=== PATIENT | male | born 1955 | race Caucasian/White ===

== ENCOUNTER 2018-07-12 13:31 | Outpatient (REF) | payer BC, SELFPAY ==
[2018-07-12 23:46] LABS: ALT 41 U/L (12-78); AST 29 U/L (15-37); Albumin 3.7 g/dL (3.4-5.0); Alkaline Phosphatase 100 U/L (46-116); Anion Gap 11.4 mmol/L (3-11); BUN 19 mg/dL (7-18); Bilirubin, Total 0.5 mg/dL (0.2-1.0); CO2 25.6 mmol/L (21.0-32.0); CREATININE 0.76 mg/dL (0.70-1.30); Calcium 8.7 mg/dL (8.5-10.1); Chloride 102 mmol/L (98-107); Creatine Kinase 222 U/L (39-308); Glucose 97 mg/dL (70-100); Potassium 4.7 mmol/L (3.5-5.1); Sodium 139 mmol/L (136-145); Total Protein 7.1 g/dL (6.4-8.2)
== END 2018-07-12 13:51 ==
LOC: NCHCN 13:31
PROVIDERS: PCP Physician Assistant Medical; Visit Provider Physician Assistant Medical
DX: M79.1 Myalgia (principal)
CPT/HCPCS: 80053; 82550; 83735

== ENCOUNTER 2018-09-06 00:55 | Outpatient (CLI) | payer BC, SELFPAY ==
--- NOTE | 2018-09-06 07:28 | DI.US_ITS ---
SYMPTOM/DIAGNOSIS: ABDOMINAL AORTIC ANEURYSM I71.4, f/u from 07/2017. ABDOMINAL ULTRASOUND: LIMITED 09/06 Limited abdominal ultrasound was performed to evaluate previously noted abdominal aortic aneurysm. On today's examination the infrarenal abdominal aortic aneurysm measures about 3.8 cm in greatest diameter, unchanged in size in comparison with examination of 08/18/17. Right common iliac artery measures 26 mm in greatest diameter. Left common iliac artery measures 17 mm in greatest diameter. CONCLUSION: 3.8 cm abdominal aortic aneurysm, infrarenal, stable from July 2017. 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
== END 2018-09-06 01:15 ==
PROVIDERS: PCP Physician Assistant Medical; Visit Provider Physician Assistant Medical
DX: I71.4 Abdominal aortic aneurysm, without rupture (principal)
CPT/HCPCS: 76775

== ENCOUNTER 2019-01-17 08:48 | Outpatient (CLI) | payer MEDICARE, OTHER, SELFPAY | END 2019-01-17 09:08 | PROVIDERS: PCP Physician Assistant Medical; Visit Provider Internal Medicine Interventional Cardiology | DX: I47.2 Ventricular tachycardia (principal); I25.10 Atherosclerotic heart disease of native coronary artery without angina pectoris; I10 Essential (primary) hypertension; J44.9 Chronic obstructive pulmonary disease, unspecified; F17.210 Nicotine dependence, cigarettes, uncomplicated; Z79.01 Long term (current) use of anticoagulants; G47.30 Sleep apnea, unspecified; L90.5 Scar conditions and fibrosis of skin; E78.5 Hyperlipidemia, unspecified | CPT/HCPCS: 99214; 93005; 93010; 99213 ==

== ENCOUNTER → 2019-03-22 01:10 | Outpatient (CLI) | payer MEDICARE, OTHER, SELFPAY ==
--- NOTE | 2019-03-22 09:11 | DI.RAD_ITS ---
SYMPTOM/DIAGNOSIS: LOW BACK PAIJN, M54.5 LUMBOSACRAL SPINE: Six views were obtained. Note is made of an apparent vertebroplasty at the L 1 level with some apparent expulsion of vertebroplasty material into the disc space at the L 1-2 level. Otherwise the vertebral bodies appear fairly well maintained. There is marked loss of the disc space at L 5-S 1 with prominent hypertrophic endplate changes at this level. Mild hypertrophic facet changes noted at multiple levels. Abdominal aortic aneurysm noted with maximal diameter by plain film measurement of 5 cm. and there is a probable common iliac artery aneurysm measuring about 3.6 cm. on the left. CONCLUSION: Marked DJD at L 5-S 1. Old L 1 compression fracture with vertebroplasty. Incidental 5 cm. abdominal aortic aneurysm by plain film criteria. Ultrasound of 09/06/18 showed this to be 3.8 cm. in diameter and follow up ultrasound is recommended in 6 months for surveillance.
== END ==
PROVIDERS: PCP Physician Assistant Medical; Visit Provider Physician Assistant Medical
DX: M54.5 Low back pain (principal); M47.817 Spondylosis without myelopathy or radiculopathy, lumbosacral region; M48.56XD Collapsed vertebra, not elsewhere classified, lumbar region, subsequent encounter for fracture with routine healing; Z98.890 Other specified postprocedural states; I71.4 Abdominal aortic aneurysm, without rupture
CPT/HCPCS: 72110

== ENCOUNTER 2019-03-28 01:37 | Outpatient (CLI) | payer MEDICARE, OTHER, SELFPAY ==
[2019-03-28 10:08] LABS: BUN 17 mg/dL (7-18); NT-proBNP 57 pg/mL
[2019-03-28 10:09] LABS: HCT 47.1 % (40.0-50.0); HGB 16.1 g/dL (13.5-17.5); Mean Corp. HGB Concentration 34.2 g/dL (32.0-36.0); Mean Corpuscular Hemoglobin 32.5 pg (27.0-33.0); Mean Platelet Volume 10.4 fL (8.0-11.0); Platelet Count 271 x1000/uL (130-400); RBC 4.96 m/cumm (4.50-6.00); RBC Distribution Width 14.2 % (11.8-14.1); White Blood Cell Count 8.59 k/cumm (4.4-10.8)
[2019-03-28] MEDS: Normal Saline Flush 10 ML SYR IVP (10:16)
[2019-03-28] MEDS: Gadoterate meglumine 20 ML VIAL 16 ML IVP (10:18)
--- NOTE | 2019-03-28 10:41 | DI.MRI_ITS ---
SYMPTOMS/DIAGNOSIS: LOW BACK PAIN, M54.5 MRI OF THE LUMBAR SPINE: Pre and post contrast examination was performed. Comparison is 10/23/16. There is an old compression deformity of the L1 vertebral body with focal kyphosis at this level. There is mild retropulsion. Overall, the findings of the L1 vertebral body are stable. At L5-S1, there is disc desiccation. There are endplate osteophytes, which extend posteriorly into the central spinal canal. There is no significant central spinal canal stenosis. There is moderate bilateral neural foraminal stenosis. At L4-L5, there is disc desiccation. No focal disc herniation is seen. There is a mild diffuse disc bulge. No central spinal canal stenosis is present. No significant neural foraminal stenosis is seen. At L3-L4, there is disc desiccation. No focal disc herniation, central spinal canal or neural foraminal stenosis is present. At L2-L3, there is disc desiccation. No focal disc herniation, central spinal canal or neural foraminal stenosis is seen. At L1-L2, there is disc desiccation. No focal disc herniation, central spinal canal or neural foraminal stenosis is present. There is an infrarenal abdominal aortic aneurysm measuring 3.8 cm AP x 3.7 cm transverse. There is also aneurysmal dilatation of the common iliac arteries bilaterally, left greater than right. The left common iliac artery measures 3 x 3.1 cm. Following contrast administration, no significant enhancement is seen. IMPRESSION: 1. Multilevel degenerative disc disease resulting in moderate bilateral neural foraminal stenosis at L5-S1. 2. Old stable L1 compression fracture deformity. 3. Distal abdominal aortic aneurysm measuring 3.8 cm. Aneurysmal dilatation seen in the iliac arteries.
== END 2019-03-28 01:57 ==
PROVIDERS: Internal Medicine Interventional Cardiology; PCP Physician Assistant Medical; Visit Provider Physician Assistant Medical
DX: I50.9 Heart failure, unspecified (principal); M54.5 Low back pain; M51.16 Intervertebral disc disorders with radiculopathy, lumbar region; M51.17 Intervertebral disc disorders with radiculopathy, lumbosacral region; S32.010D Wedge compression fracture of first lumbar vertebra, subsequent encounter for fracture with routine healing; I71.4 Abdominal aortic aneurysm, without rupture
CPT/HCPCS: 72158; 84520; 85027; 82565; 83880

== ENCOUNTER 2019-09-02 01:46 | Outpatient (CLI) | payer MEDICARE, OTHER, SELFPAY ==
[2019-09-02 08:44] LABS: ALT 33 U/L (16-63); AST 20 U/L (15-37); Albumin 3.6 g/dL (3.4-5.0); Alkaline Phosphatase 88 U/L (46-116); Anion Gap 9.7 mmol/L (3-11); BUN 14 mg/dL (7-18); Bilirubin, Total 0.7 mg/dL (0.2-1.0); CO2 26.3 mmol/L (21.0-32.0); CREATININE 0.94 mg/dL (0.70-1.30); Calcium 9.1 mg/dL (8.5-10.1); Calculated LDL 187 mg/dL; Chloride 101 mmol/L (98-107); Cholesterol 247 mg/dL (50-200); Glucose 103 mg/dL (70-100); HDL Cholesterol 45 mg/dL (40-60); Potassium 4.6 mmol/L (3.5-5.1); Sodium 137 mmol/L (136-145); Total Protein 7.1 g/dL (6.4-8.2); Triglyceride 77 mg/dL (30-150)
== END 2019-09-02 02:06 ==
PROVIDERS: PCP Physician Assistant Medical; Visit Provider Physician Assistant Medical
DX: I10 Essential (primary) hypertension (principal); E78.5 Hyperlipidemia, unspecified; R73.01 Impaired fasting glucose
CPT/HCPCS: 36415; 80053; 80061; 83036

== ENCOUNTER 2019-12-04 08:31 | Emergency (ER) | payer MEDICARE, OTHER, SELFPAY ==
[2019-12-04] VITALS (45 sets, daily range): BP systolic 124–153; BP diastolic 54–93; PULSE 62–93; RESP 11–22; TEMP 36.4; O2SAT 93–98
--- NOTE | 2019-12-04 08:40 | ED.GENADUL_ITS ---
Discharge Plan Disposition Patient Disposition: AGAINST MEDICAL ADVICE Condition: Serious Discharge Details Chief Complaint: SOB Clinical Impression: Chest pain Primary Care Provider: Leonid Hernandez ED Provider: Alyssa Perdomo Home Meds and New Rx's Prescriptions: Continued nicotine (polacrilex) [Nicorette] 2 mg gum 2 mg BC Q2H RF: 0 Incruse Ellipta 62.5 mcg/actuation blister with device 1 inh IH DAILY RF: 0 nitroglycerin [Nitrostat] 0.4 MG tablet, sublingual 0.4 mg Buccal ONCE PRN Qty: 30 RF: 4 clopidogrel [Plavix] 75 MG tablet 75 mg PO DAILY 90 Days Qty: 90 RF: 0 lisinopril 10 MG tablet 10 mg PO DAILY 90 Days Qty: 90 RF: 3 Airborne (ascorbate sodium) 1 EACH lozenge 1 tab PO PRN PRNRF: 0 Discharge Instructions Instructions: Chest Pain (ED) Additional Instructions: You are leaving AGAINST MEDICAL ADVICE. It is recommended that you be admitted as I am concerned you are at high risk for another heart attack. You may return at any point for further care. Please seek care emergently if you develop any recurrence of your symptoms. 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 Referrals: Leonid Hernandez PA [Primary Care Provider] - Discharge Data Discharge Date/Time-TO BE ENTERED AT DEPARTURE: 12/04/19 13:05 Medical Decision Making Patient is a pleasant 64-year-old male, accompanied by his , with chief complaint of exertional dyspnea. He reports his symptoms began yesterday. He had been feeling well up until then. Denied any exertional dyspnea or chest pain prior to this episode. He states that yesterday he had gone outside and was trying to clear the snow off of his portable garage. Reports feeling suddenly dyspneic and fatigued. Walks back to the house but felt like I was not going to make it. Patient has had 2 MIs historically neither of which the patient experienced chest pain. However, she states I did not have the cold sweats I normally get. He denies any nausea. No radiating pain. He reports the dyspnea resolved once he was able to be sedentary. He has not experienced any shortness of breath or recurrence of his symptoms. He reports that he slept well last night but woke up feeling not right. Goes on to describe this further as shaky. Patient did have recent travel to [place]. Denies any history of DVT. Patient has been taking Plavix as prescribed. Reports that he was evaluated by cardiology on Thursday. Receives care at [facility]. States that he did recently have an echo as well as a stress test, both of which were performed here. Patient smokes half pack per day. Past medical history significant for CAD, cardiomyopathy, nonsustained VT, TIA, PVD, GERD, abdominal aortic aneurysm. Patient reports that he has had 1 stent placement in 2011. His first heart attack which was in 1999 and was treated with lysis. EKG was reviewed by Dr. Nuno. Patient is in a sinus rhythm with frequent PVCs . Does have some slight less than [address] elevation in lead V4 but this is comparable to previous and advised no evidence of STEMI is noted. On exam, patient appears Nontoxic. He is resting comfortably. Normal cardiac exam. No lower extremity edema, no calf tenderness. Lungs are clear. He does have a history of COPD and I do not note any wheezing or diminished air movement. No murmurs rubs or gallops appreciated Last echo was performed October 27, 2017. LVEF of 45 to 50%. Normal size. Mild hypokinesis mid and anteroseptal apex. Right ventricle normal. Aortic valve is trileaflet, normal aortic valve. Left atrium is normal, right atrium is normal. Pulmonary pressure not assessable. IVC normal. No comment on PFO. Stress test is also from December 23, 2017. Patient had to stop because of fatigue. Unable to obtain target. Chest was transitioned to adenosine. Patient was noted have a small sized fixed apical defect. Large sized fixed inferior/inferolateral/anterolateral defect. No ischemia. LVEF 33%. Holter was performed March 19, 2018. Baseline sinus rhythm with rare single PACs. Patient did have a 15 beat burst SVT. Frequent single PVCs. 2 triggered events showing sinus rhythm with PVC. Average heart 68. Carotid ultrasounds performed October 27, 2017 with scattered calcified plaques no significant stenosis. Plan to augment patient's Plavix with aspirin. Will obtain laboratory evaluation to include troponin. We will also include d-dimer given the recent travel and dyspnea. He is not endorsing any pleuritic pain. He is not had any cough. CXR reviewed by radiologist: FINDINGS: Lungs: Hyperexpanded lung de la fuente consistent with COPD Discoid atelectasis in the left mid lung Pleural space: Unremarkable. No pleural effusion. No pneumothorax. Heart/Mediastinum: Unremarkable. No cardiomegaly. Bones/joints: Vertebroplasty in the lumbar spine IMPRESSION: Hyperexpanded lung de la fuente consistent with COPD Labs reviewed. No leukocytosis. H&H is stable. D-dimer still pending. No electrolyte abnormalities. Initial troponin is less than 0.05. D-dimer is elevated at 1700. Plan for CT for PE protocol. Discussed these findings and plan with the patient. FINDINGS: Pulmonary arteries: No evidence of pulmonary embolus to the segmental level. Aorta: No aneurysm of the aorta. No dissection of the aorta. Lungs: Bibasilar atelectasis foot foot Pleural space: Unremarkable. No pneumothorax. No pleural effusion. Heart: Coronary artery calcifications may indicate coronary artery disease. Adrenals: 2.2 cm left adrenal adenoma Kidneys and ureters: 2 cm cyst in the left kidney Lymph nodes: Unremarkable. No enlarged lymph nodes. Bones/joints: Unremarkable. No acute fracture. Soft tissues: Unremarkable. IMPRESSION: 1. No evidence of pulmonary embolus to the segmental level 2. No aneurysm of the aorta. 3. No dissection of the aorta. Discussed these findings with the patient. His repeat troponin remains less than 0.05. Discussed treatment options with patient and his family. I advised her that his symptoms and history remained quite concerning despite a reassuring evaluation today. Patient is a heart score 5. I discussed these risks with the patient. Consulted with hospitalist regarding admission. She agrees to admission for continued monitoring and stress testing. Patient is now requesting discharge. He prefers outpatient management. Advised he had multiple stress tests historically that are all negative. He prefers to follow-up with his lithograph press feeder and have angiography as this is been more sensitive for him historically. He is well aware of the risks associated with this. He is aware of the concerns that we have and risk of possible with his leaving AGAINST MEDICAL ADVICE. He was given strict return precautions. He lives locally and is able to return with any new or worsening symptoms. Patient is cognitively appropriate and is well aware of the risks. He will contact his lithograph press feeder tomorrow to schedule follow-up appointment. All of his questions and concerns were addressed and he is in agreement this plan. HPI General Mode of arrival: ambulatory . Date/Time Provider Initiated Documentation: 12/04/19 08:40 . Limitations to Documentation: no limitations . Information obtained by: patient, family () and RN notes reviewed . History of Present Illness 64 year old M presents to the emergency department with the chief complaint of Exertional shortness of breath, described as moderate and similar to prior episodes, and is localized to the chest (denies any CP). Patient reports no radiation. Patient started experiencing this day(s) (episode was about 24 hours ago) and it has been now resolved (states he now feels shaky but is not SOB or CP). Immobilization improves symptom(s), Movement worsens symptoms . Patient notes no other symptoms. and shortness of breath; denies chest pain, cough, fever/chills, loss of appetite, nausea/vomiti ng, rash, syncope and weakness. Patient did receive the following treatments prior to arrival, none Related Data Home Medications Medication Instructions Recorded Confirmed nitroglycerin [Nitrostat] 0.4 mg BUCCAL ONCE PRN #30 tab-cap 11/02/13 12/04/19 Airborne (ascorbate sodium) 1 tab PO PRN PRN 10/21/17 12/04/19 clopidogrel [Plavix] 75 mg PO DAILY 90 Days #90 tab-cap 01/07/18 12/04/19 lisinopril 10 mg PO DAILY 90 Days #90 tab 01/07/18 12/04/19 nicotine (polacrilex) 2 mg gum 2 mg BC Q2H 04/20/19 12/04/19 umeclidinium 62.5 mcg/actuation 1 inh IH DAILY 04/20/19 12/04/19 blister powder for inhalation Previous Rx's Medication Instructions Recorded clopidogrel [Plavix] 75 mg PO DAILY 90 Days #90 tab-cap 01/07/18 lisinopril 10 mg PO DAILY 90 Days #90 tab 01/07/18 Allergies Allergy/AdvReac Type Severity Reaction Status Date / Time bupropion Allergy Intermediate HIVES Unverified 12/04/19 08:39 Beta-Blockers Allergy Unknown PER MD Unverified 12/04/19 08:39 (Beta-Adrenergic Bloc Djmetlb-Glj-Frn Reductase AdvReac Unknown GI UPSET Unverified 12/04/19 08:39 Inhibitor General Stated Complaint: SOB NIC: 3 Review of Systems Constitutional Constitutional: Reports as per HPI, Denies chills, Denies fever(s), Denies headache(s), Denies lethargy and Denies poor appetite Eyes Eyes: Denies change in vision ENT Ears, Nose, Mouth, and Throat: Denies dizziness and Denies headache(s) Cardiovascular Cardiovascular: Reports as per HPI, Denies dyspnea and Denies dyspnea on exertion Respiratory Respiratory: Reports as per HPI, Denies chest congestion, Denies cough, Denies pain on inspiration, Denies pain with cough, Denies dyspnea, Denies dyspnea on exertion and Denies wheezing Gastrointestinal Gastrointestinal: Reports as per HPI, Denies abdominal pain, Denies diarrhea, Denies nausea and Denies vomiting Genitourinary Genitourinary: Denies system reviewed and no additional complaints, except as docu (denies change in urinary habits) Musculoskeletal Musculoskeletal: Reports as per HPI and Denies back pain Integumentary/Breasts Skin/Breast: Reports as per HPI and Denies rash Neurologic Neurologic: Reports as per HPI, Denies dizziness and Denies headache(s) Allergic/Immunologic Allergic/Immunologic: Denies wheezing [facility] Medical History AAA (abdominal aortic aneurysm) Barretts esophagus Cardiomyopathy (Acute) Cardiovascular disease (Acute) COPD (chronic obstructive pulmonary disease) GERD (gastroesophageal reflux disease) (Chronic) HTN (hypertension) Hyperlipidemia Irritable colon Low back pain (Acute) Nonsustained paroxysmal ventricular tachycardia (Acute) FEROZ (obstructive sleep apnea) (Chronic) Prediabetes PVD (peripheral vascular disease) (Chronic) Spinal compression fracture (Acute) TIA (transient ischemic attack) (Acute) Surgical History Colonoscopy - IV Sedation (02/25/13) DR. PINEDO Colonoscopy - IV Sedation (06/27/16) DR. PINEDO Coronary Stent EGD - IV Sedation (06/27/16) DR. PINEDO; RAGSDALE'S ESOPHAGUS Repair of umbilical hernia Social History Smoking/Tobacco Use Status: Current every day Tobacco Type: cigarettes Alcohol Intake: current Alcohol Intake frequency: 0-2 drinks per day Alcohol type: wine and hard liquor Drug use: Never Substance use type: does not use Do you feel safe at home: Yes Do you feel safe in your relationship?: Yes Exam Const General: cooperative, healthy appearing, comfortable, no acute distress and well developed Nutritional Appearance: average body habitus and well nourished Orientation: alert, awake and oriented x3 HENMT Head: normal to inspection Ears: hearing grossly normal bilaterally Mouth: moist mucous membranes Chest Chest: normal inspection of the chest, normal palpation of entire chest wall and no crepitus Resp Effort & Inspection: normal respiratory effort, able to speak in complete sentences and no respiratory distress Auscultation: clear to auscultation bilaterally, no rales, no rhonchi and no wheezes Cardio Rate: regular rate Rhythm: regular rhythm Heart Sounds: S1 normal and S2 normal GI Inspection: normal to inspection, no edema and non-distended Palpation: soft, no hepatosplenomegaly, not firm, no guarding, not rigid and nontender Auscultation: normal bowel sounds Back/Spine/Pelvis Back: no CVA tenderness Thoracic/Lumbar Spine: thoracic and lumbar spine normal to inspection Skin General skin exam: no rashes or lesions noted Trauma: no lacerations or abrasions Neuro General: alert, awake and oriented x3 Cognition: normal cognition Speech: speech normal Gait: normal gait Extrem General: normal to inspection, normal capillary refill, no pedal edema, no calf tenderness and normal gait Psych Appearance: grossly normal and well kempt Mental Status: mental status grossly normal Speech and Movement: speech and movement normal Course Vital Signs Vital signs: Vital Signs Temperature 36.4 C L 12/04/19 08:35 Pulse 67 12/04/19 08:35 Respiratory Rate 18 12/04/19 08:35 Blood Pressure 140/93 H 12/04/19 08:35 Pulse Oximetry 96 12/04/19 08:35 Temperature 36.4 C L 12/04/19 08:35 Temperature Source Temporal Artery Scan 12/04/19 08:35 Pulse 67 12/04/19 08:35 Respiratory Rate 18 12/04/19 08:35 Blood Pressure 140/93 H 12/04/19 08:35 Blood Pressure Position Sitting 12/04/19 08:35 Pulse Oximetry 96 12/04/19 08:35 Oxygen Delivery Method Room Air 12/04/19 08:35 Oxygen Flow Rate 0 12/04/19 08:35 Pain Level 5 12/04/19 08:35
[2019-12-04 09:10] LABS: Abs Immature Grans 0.09 k/cumm (0.0-0.09); Absolute Basophil Count 0.04 k/cumm (0.0-0.2); Absolute Eosinophil Count 0.12 k/cumm (0.0-0.7); Absolute Lymphocyte Count 2.13 k/cumm (1.2-3.4); Absolute Monocyte Count 1.22 k/cumm (0.11-0.7); Absolute Neutrophil Count 6.39 k/cumm (1.2-6.7); Basophils % 0.4; Eosinophils % 1.2; HCT 49.1 % (40.0-50.0); Immature Grans % 0.9 %; Lymphocytes % 21.3; Mean Corp. HGB Concentration 34.6 g/dL (32.0-36.0); Mean Corpuscular Hemoglobin 32.3 pg (27.0-33.0); Mean Corpuscular Volume 93.2 fL (80-95); Mean Platelet Volume 10.2 fL (8.0-11.0); Monocytes % 12.2; Platelet Count 284 x1000/uL (130-400); RBC 5.27 m/cumm (4.50-6.00); RBC Distribution Width 14.4 % (11.8-14.1); White Blood Cell Count 9.99 k/cumm (4.4-10.8)
[2019-12-04 09:20] LABS: PTT Activated 25.7 sec (21.0-31.4); Prothrombin Time 10.5 sec (9.3-11.0)
[2019-12-04 09:22] LABS: ALT 44 U/L (16-63); AST 22 U/L (15-37); Albumin 3.5 g/dL (3.4-5.0); Alkaline Phosphatase 95 U/L (46-116); Anion Gap 11.2 mmol/L (3-11); BUN 16 mg/dL (7-18); Bilirubin, Total 0.5 mg/dL (0.2-1.0); CO2 25.8 mmol/L (21.0-32.0); CREATININE 1.16 mg/dL (0.70-1.30); Calcium 8.5 mg/dL (8.5-10.1); Chloride 102 mmol/L (98-107); Glucose 141 mg/dL (74-106); Magnesium 1.9 mg/dL (1.8-2.4); Potassium 3.7 mmol/L (3.5-5.1); Sodium 139 mmol/L (136-145); Total Protein 7.3 g/dL (6.4-8.2)
[2019-12-04 09:25] LABS: Troponin I < 0.05 ng/Ml (<0.06)
--- NOTE | 2019-12-04 09:35 | DI.RAD_ITS ---
EXAM: XR CHEST 2V PA LATERAL INDICATION: SOB. COMPARISON: CHEST 2 VIEWS PA,LAT from 06/04/2015 TECHNIQUE: 2D digital imaging was performed. FINDINGS: The heart size and pulmonary vasculature are within normal limits. There is linear atelectasis or sc arring in the left mid lung. No focal consolidating infiltrates, effusions or pneumothoraces are quyen ntified. There is an old lumbar vertebroplasty present. Lungs appear hyperexpanded consistent with underlying COPD. IMPRESSION: No acute pulmonary process.
--- NOTE | 2019-12-04 09:48 | DI.VRAD_ITS ---
PROCEDURE INFORMATION: Exam: XR Chest, 2 Views Exam date and time: 12/04/2019 9:37 AM Age: 64 years old Clinical indication: Shortness of breath TECHNIQUE: Imaging protocol: XR of the chest Views: 2 views. COMPARISON: CR CHEST 2 VIEWS PA,LAT 06/04/2015 2:43 PM FINDINGS: Lungs: Hyperexpanded lung de la fuente consistent with COPD Discoid atelectasis in the left mid lung Pleural space: Unremarkable. No pleural effusion. No pneumothorax. Heart/Mediastinum: Unremarkable. No cardiomegaly. Bones/joints: Vertebroplasty in the lumbar spine IMPRESSION: Hyperexpanded lung de la fuente consistent with COPD Dictated and Authenticated by: Judson Harris MD. Ordering:HANK Shah MD
[2019-12-04] MEDS: Aspirin 81 MG CHEW 324 MG CH (09:57)
--- NOTE | 2019-12-04 10:00 | DI.CT_ITS ---
EXAM: CT CHEST PE CTA CLINICAL HISTORY: SOB, elevated d-dimer. TECHNIQUE: Imaging Protocol: Axial CT angiography was performed with multi-slice acquisition and mu lti-planar and/or 3D reconstructions. CONTRAST MATERIAL: Intravenous: Omnipaque 350 Contrast volume:72 mL COMPARISON: CHEST FOR PULMONARY EMBOLUS from 06/04/2015 FINDINGS: Pulmonary Arteries: No evidence of filling defect to suggest pulmonary emboli. Tracheobronchial tree: Patent where visualized. Mediastinum and [place]: No dominant adenopathy or fluid collection. Pulmonary parenchyma: No consolidation or dominant measurable mass. Bilateral basilar atelectasis. E mphysematous changes. Pleura: No effusion or pneumothorax. Heart: The heart is not dilated. Moderate coronary artery calcifications are seen. No evidence of ri ght heart strain or pericardial effusion. Aorta: Thoracic aorta non-dilated. No aneurysm or dissection. Upper abdomen: Bilateral adrenal nodules. Left renal cyst. Bones: Degenerative changes in the spine. Old lumbar vertebroplasty. IMPRESSION: No evidence of a pulmonary embolus, thoracic aortic dissection or aneurysm. DATA REPOSITORY: All CT scans at this facility are submitted to the National Radiology Data Registry (NRDR) Dose Index Registry (DIR) with the [employer] (ACR). RADIATION OPTIMIZATION: All CT scans at this facility use at least one of these dose optimization te chniques: automated exposure control; mA and/or kV adjustment per patient size (includes targeted exa ms where dose is matched to clinical indication); or iterative reconstruction.
[2019-12-04 10:04] LABS: D-Dimer 1709 ng/mlFEU (<500)
[2019-12-04] MEDS: Normal Saline Flush 10 ML SYR IVP (10:15)
[2019-12-04] MEDS: Normal Saline 1,000 ML 1000 ML IV (10:15)
[2019-12-04] MEDS: Omnipaque 350 MG/ML 100 ML BTL 72 ML IJ (10:46)
[2019-12-04] MEDS: Normal Saline - Diluent 50 ML VIAL IV (10:47)
--- NOTE | 2019-12-04 11:10 | DI.VRAD_ITS ---
PROCEDURE INFORMATION: Exam: CT Angiography Chest With Contrast Exam date and time: 12/04/2019 10:10 AM Age: 64 years old Clinical indication: Shortness of breath; Patient HX: SOB, elevated d-dimer no HX of clots, recent plane ride to and from [place] 1 week ago. TECHNIQUE: Imaging protocol: Computed tomographic angiography of the chest with intravenous contrast. 3D rendering: MIP and/or 3D reconstructed images were created by the technologist. Radiation optimization: All CT scans at this facility use at least one of these dose optimization techniques: automated exposure control; mA and/or kV adjustment per patient size (includes targeted exams where dose is matched to clinical indication); or iterative reconstruction. Contrast material: OMNIPAQUE 350; Contrast volume: 72 ml; Contrast route: IV; COMPARISON: CT CHEST FOR PULMONARY EMBOLUS 06/04/2015 4:37 PM FINDINGS: Pulmonary arteries: No evidence of pulmonary embolus to the segmental level. Aorta: No aneurysm of the aorta. No dissection of the aorta. Lungs: Bibasilar atelectasis foot foot Pleural space: Unremarkable. No pneumothorax. No pleural effusion. Heart: Coronary artery calcifications may indicate coronary artery disease. Adrenals: 2.2 cm left adrenal adenoma Kidneys and ureters: 2 cm cyst in the left kidney Lymph nodes: Unremarkable. No enlarged lymph nodes. Bones/joints: Unremarkable. No acute fracture. Soft tissues: Unremarkable. IMPRESSION: 1. No evidence of pulmonary embolus to the segmental level. 2. No aneurysm of the aorta. 3. No dissection of the aorta. Dictated and Authenticated by: Judson Harris MD. Ordering:HANK Shah MD
[2019-12-04 12:22] LABS: Troponin I < 0.05 ng/Ml (<0.06)
--- NOTE | 2019-12-04 12:54 | W.PM.PROGNOT ---
Date of Service Date of service: 12/04/19 Time of Service: 12:54 Subjective Subjective Interval history since last seen: We were asked to admit the patient, unfortunately he has decided to leave [facility] in the ED prior to him being seen. Objective Objective Clinical Data: Abnormal lab results 12/04/19 12/04/19 12/04/19 Range/Units 08:59 08:59 08:59 RDW 14.4 H (11.8-14.1) % Absolute Monocytes 1.22 H (0.11-0.7) k/cumm D-Dimer 1709 H (<500) ng/mlFEU Anion Gap 11.2 H (3-11) mmol/L Glucose 141 H (74-106) mg/dL Vital Signs Temperature 36.4 C L 12/04/19 08:35 Temperature Source Temporal Artery Scan 12/04/19 08:35 Pulse 70 12/04/19 11:46 Pulse 75 12/04/19 11:50 Respiratory Rate 19 12/04/19 11:50 Respiratory Effort 12/04/19 08:42 Respiratory Depth Normal 12/04/19 08:42 Respiratory Pattern Normal 12/04/19 08:42 Blood Pressure 141/67 H 12/04/19 11:46 Blood Pressure Mean 79 12/04/19 11:46 Blood Pressure Position Sitting 12/04/19 08:35 Pulse Oximetry 96 12/04/19 11:50 Oxygen Delivery Method Room Air 12/04/19 08:35 Oxygen Flow Rate 0 12/04/19 08:35 Pain Level 5 12/04/19 08:35 Intake & Output 12/03/19 12/04/19 12/04/19 23:59 11:59 23:59 Intake Total 1010 / 1020 10 / 1020 Balance 1010 / 1020 10 / 1020 Weight 78.925 kg Intake: IV 1010 / 1020 10 / 1020 Laboratory Results WBC 9.99 k/cumm (4.4-10.8) 12/04/19 08:59 RBC 5.27 m/cumm (4.50-6.00) 12/04/19 08:59 Hgb 17.0 g/dL (13.5-17.5) 12/04/19 08:59 Hct 49.1 % (40.0-50.0) 12/04/19 08:59 MCV 93.2 fL (80-95) 12/04/19 08:59 MCH 32.3 pg (27.0-33.0) 12/04/19 08:59 MCHC 34.6 g/dL (32.0-36.0) 12/04/19 08:59 RDW 14.4 % (11.8-14.1) H 12/04/19 08:59 Plt Count 284 x1000/uL (130-400) 12/04/19 08:59 MPV 10.2 fL (8.0-11.0) 12/04/19 08:59 Immature Gran % 0.9 % 12/04/19 08:59 Neutrophils % 64.0 12/04/19 08:59 Lymphocytes % 21.3 12/04/19 08:59 Monocytes % 12.2 12/04/19 08:59 Eosinophils % 1.2 12/04/19 08:59 Basophils % 0.4 12/04/19 08:59 Absolute Neutrophils 6.39 k/cumm (1.2-6.7) 12/04/19 08:59 Absolute Lymphocytes 2.13 k/cumm (1.2-3.4) 12/04/19 08:59 Absolute Monocytes 1.22 k/cumm (0.11-0.7) H 12/04/19 08:59 Absolute Eosinophils 0.12 k/cumm (0.0-0.7) 12/04/19 08:59 Absolute Basophils 0.04 k/cumm (0.0-0.2) 12/04/19 08:59 PT 10.5 sec (9.3-11.0) 12/04/19 08:59 INR 1.0 (0.9-1.1) 12/04/19 08:59 APTT 25.7 sec (21.0-31.4) 12/04/19 08:59 D-Dimer 1709 ng/mlFEU (<500) H 12/04/19 08:59 Sodium 139 mmol/L (136-145) 12/04/19 08:59 Potassium 3.7 mmol/L (3.5-5.1) 12/04/19 08:59 Chloride 102 mmol/L (98-107) 12/04/19 08:59 Carbon Dioxide 25.8 mmol/L (21.0-32.0) 12/04/19 08:59 Anion Gap 11.2 mmol/L (3-11) H 12/04/19 08:59 BUN 16 mg/dL (7-18) 12/04/19 08:59 Creatinine 1.16 mg/dL (0.70-1.30) 12/04/19 08:59 Estimated GFR/1.73 m2 >= 60.00 (mL/min/1.73m2) 12/04/19 08:59 Glucose 141 mg/dL (74-106) H 12/04/19 08:59 Calcium 8.5 mg/dL (8.5-10.1) 12/04/19 08:59 Magnesium 1.9 mg/dL (1.8-2.4) 12/04/19 08:59 Total Bilirubin 0.5 mg/dL (0.2-1.0) 12/04/19 08:59 AST 22 U/L (15-37) 12/04/19 08:59 ALT 44 U/L (16-63) 12/04/19 08:59 Alkaline Phosphatase 95 U/L (46-116) 12/04/19 08:59 Troponin I < 0.05 ng/Ml (<0.06) 12/04/19 11:58 Total Protein 7.3 g/dL (6.4-8.2) 12/04/19 08:59 Albumin 3.5 g/dL (3.4-5.0) 12/04/19 08:59
[2019-12-04 13:13] LABS: NT-proBNP 133 pg/mL (<300)
== END 2019-12-04 13:05 | disposition left against medical advice (07) ==
PROVIDERS: Emergency Provider Physician Assistant; PCP Physician Assistant Medical
DX: R07.89 Other chest pain (principal); Z53.29 Procedure and treatment not carried out because of patient's decision for other reasons; Z79.01 Long term (current) use of anticoagulants; I10 Essential (primary) hypertension; J44.9 Chronic obstructive pulmonary disease, unspecified; F17.210 Nicotine dependence, cigarettes, uncomplicated
CPT/HCPCS: 71275; 80053; 93005; 94640; 96360; 96372; 99285; NC; 71046; 83735; 83880; 84484; 85025; 85379; 85610; 85730; 93010; J3490

== ENCOUNTER 2021-09-02 14:08 | Outpatient (REF) | payer MEDICARE, OTHER, SELFPAY ==
[2021-09-04 17:02] LABS: COVID-19 RT-PCR UVMMC Result Negative (Negative)
== END 2021-09-02 14:09 | disposition home or self-care (01) ==
LOC: LBN 14:08
PROVIDERS: PCP Physician Assistant Medical; Visit Provider Nurse Practitioner Family
DX: Z20.822 Contact with and (suspected) exposure to COVID-19 (principal); J06.9 Acute upper respiratory infection, unspecified
CPT/HCPCS: U0003

== ENCOUNTER 2021-10-09 03:02 | Outpatient (CLI) | payer MEDICARE, OTHER, SELFPAY ==
[2021-10-09 07:39] LABS: Hemoglobin A1C 5.9 % (<5.7)
[2021-10-09 08:38] LABS: ALT 41 U/L (16-63); AST 22 U/L (15-37); Albumin 3.6 g/dL (3.4-5.0); Alkaline Phosphatase 94 U/L (46-116); Anion Gap 7.2 mmol/L (3-11); BUN 16 mg/dL (7-18); Bilirubin, Total 0.6 mg/dL (0.2-1.0); CO2 29.8 mmol/L (21.0-32.0); Calcium 8.9 mg/dL (8.5-10.1); Calculated LDL 236 mg/dL (<100); Chloride 100 mmol/L (98-107); Cholesterol 304 mg/dL (<200); Glucose 110 mg/dL (74-106); HDL Cholesterol 46 mg/dL (40-60); Potassium 4.4 mmol/L (3.5-5.1); Sodium 137 mmol/L (136-145); Total Protein 7.2 g/dL (6.4-8.2); Triglyceride 113 mg/dL (<150)
== END 2021-10-09 03:03 | disposition home or self-care (01) ==
LOC: LBO 03:02
PROVIDERS: PCP Physician Assistant Medical; Visit Provider Physician Assistant Medical
DX: I10 Essential (primary) hypertension (principal); E78.5 Hyperlipidemia, unspecified; R73.03 Prediabetes
CPT/HCPCS: 36415; 80053; 80061; 83036

== ENCOUNTER 2021-10-15 01:52 | Outpatient (CLI) | payer MEDICARE, OTHER, SELFPAY ==
--- NOTE | 2021-10-15 08:00 | DI.CTLCSR_ITS ---
Exam(s) CT CHEST LUNG CANCER SCREEN EXAM: CT CHEST LUNG CANCER SCREEN CLINICAL HISTORY: SCREENING FOR LUNG CA, SMOKER, F17.210 TECHNIQUE: CT examination of the chest was performed utilizing low-dose lung cancer screening protoc ol. COMPARISON: CT CHEST FOR PULMONARY EMBOLUS from 06/04/[address] CHEST PE CTA from 12/04/[address] CHEST PE CTA from 12/04/2019 FINDINGS: Images obtained through the upper abdomen show unremarkable appearance of visualized portions of the liver and spleen. There is a stable left adrenal nodule measuring about 2.2 cm in greatest diameter with internal attenuation around -24 Hounsfield units, consistent with adrenal adenoma. This is unc hanged from prior chest CT of November 2019. Incidental left renal cyst also noted. Abdominal aorti c aneurysm incompletely visualized measuring up to 3.5 cm diameter. This was previously noted on ult rasound examination of August 2018. Note is made of coronary artery calcification. There is no mediastinal or hilar adenopathy. Mediastinal vascular structures appear intact by noncon trast criteria. Tracheobronchial tree appears intact. No pleural effusion or pleural-based mass. The lungs are predominantly clear. There are few tiny noncalcified pulmonary nodules. There is a 6 millimeter to 7 millimeter mean diameter right upper lobe intrapulmonary nodule which is noncalcified , this was present on prior chest CT of 2014, measuring about 4 millimeters in diameter at that time, and was also present on chest CT of November 2019, measuring 6-7 millimeters in diameter. IMPRESSION: Stable noncalcified right upper lobe 6-7 millimeter in diameter intrapulmonary nodule. Stable left a drenal mass with appearance consistent with adenoma noted. Lung RADS Cat 2 - Benign Appearance / Behavior: Nodules with a very low likelihood of becoming a clin ically active cancer due to size or lack of growth Continue annual screening with LDCT in 12 months. RADIATION DOSE DELIVERED: 83.89mGy.cm Total DLP 1.84mGy CTDIvol 83.89mGy.cm Total DLP 1.84mGy CTDIvol RADIATION OPTIMIZATION: All CT scans at this facility use at least one of these dose optimization te chniques: automated exposure control; mA and/or kV adjustment per patient size (includes targeted exa ms where dose is matched to clinical indication); or iterative reconstruction.
== END 2021-10-15 02:12 ==
PROVIDERS: PCP Physician Assistant Medical; Visit Provider Physician Assistant Medical
DX: F17.210 Nicotine dependence, cigarettes, uncomplicated (principal); Z12.2 Encounter for screening for malignant neoplasm of respiratory organs; R91.8 Other nonspecific abnormal finding of lung field
CPT/HCPCS: 71271

== ENCOUNTER → 2021-10-31 12:45 | Outpatient (BNVA) | payer MEDICARE, OTHER, SELFPAY | PROVIDERS: PCP Physician Assistant Medical; Referring Provider Physician Assistant Medical; Visit Provider Physical Therapy Assistant | DX: L98.9 Disorder of the skin and subcutaneous tissue, unspecified (principal); J44.9 Chronic obstructive pulmonary disease, unspecified; E11.9 Type 2 diabetes mellitus without complications; Z79.01 Long term (current) use of anticoagulants | CPT/HCPCS: 99213 ==

== ENCOUNTER → 2021-12-05 08:51 | Outpatient (BNVA) | payer MEDICARE, OTHER, SELFPAY | PROVIDERS: PCP Physician Assistant Medical; Referring Provider Physician Assistant Medical; Visit Provider Physical Therapy Assistant | DX: D17.1 Benign lipomatous neoplasm of skin and subcutaneous tissue of trunk (principal) | CPT/HCPCS: 11401 ==

== ENCOUNTER 2022-02-26 09:41 | Outpatient (REF) | payer MEDICARE, OTHER, SELFPAY ==
[2022-02-26 15:47] LABS: ALT 36 U/L (16-63); AST 21 U/L (15-37); BUN 16 mg/dL (7-18); CREATININE 0.9 mg/dL (0.70-1.30); Calculated LDL 105 mg/dL (<100); Cholesterol 174 mg/dL (<200); Glucose 118 mg/dL (74-106); HDL Cholesterol 49 mg/dL (40-60); Triglyceride 103 mg/dL (<150)
[2022-02-26 16:00] LABS: Uric Acid 4.9 mg/dL (3.5-7.2)
[2022-02-27 20:42] LABS: Creatine Kinase 110 U/L (39 - 308)
== END 2022-02-26 09:42 | disposition home or self-care (01) ==
LOC: NCHCN 09:41
PROVIDERS: PCP Physician Assistant Medical; Visit Provider Physician Assistant Medical
DX: I47.2 Ventricular tachycardia (principal); E11.9 Type 2 diabetes mellitus without complications
CPT/HCPCS: 80061; 82947; 84520; 82550; 82552; 82565; 84450; 84460; 84550

== ENCOUNTER → 2022-05-15 02:23 | Outpatient (CLI) | payer MEDICARE, OTHER, SELFPAY ==
--- NOTE | 2022-05-15 | DI.US_ITS ---
Exam(s) US CAROTID EXAM: US CAROTID CLINICAL HISTORY: VASCULAR DISEASE, I99.9, DIZZINESS, R42. TECHNIQUE: Ultrasound carotids performed using grayscale, color-flow, and spectral Doppler imaging. COMPARISON: No exams were available for comparison FINDINGS: RIGHT CAROTID ARTERY: Plaque: Moderate calcific plaque present in the common carotid artery, carotid bulb and proximal ICA. Velocity elevation: None. LEFT CAROTID ARTERY: Plaque: Moderate calcific plaque seen in the carotid bulb, common carotid artery and ICA proximally. Velocity elevation: None. VERTEBRAL ARTERIES: Antegrade flow. IMPRESSION: No evidence for hemodynamically significant carotid stenosis. Criteria for Carotid Stenosis: Normal: ICA PSV <125 cm/s no plaque or intimal thickening is visible. <50% stenosis: ICA PSV <125 cm/s and plaque or intimal thickening is visible. 50-69% stenosis: ICA PSV is 125-250 cm/s and plaque is visible. >70% stenosis to near occlusion: ICA PSV >250 cm/s with visible plaque and luminal narrowing. DATA REPOSITORY:
== END ==
PROVIDERS: PCP Physician Assistant Medical; Visit Provider Registered Nurse Emergency
DX: I99.9 Unspecified disorder of circulatory system (principal); R42 Dizziness and giddiness
CPT/HCPCS: 93880

== ENCOUNTER 2022-12-08 01:19 | Outpatient (CLI) | payer MEDICARE, OTHER, SELFPAY ==
--- NOTE | 2022-12-08 | DI.CTLCSR_ITS ---
Exam(s) CT CHEST LUNG CANCER SCREEN EXAM: CT CHEST LUNG CANCER SCREEN CLINICAL HISTORY: SCREENING FOR LUNG CA, SMOKER, F17.210 TECHNIQUE: Imaging Protocol: Axial computed tomography images with coronal and sagittal reformatted images were created and reviewed. Low dose screening protocol. COMPARISON: CR XR lumbar spine complete from 03/22/[address] CHEST PE CTA from 12/04/[address] CHEST LUNG CANCER SCREEN from 10/15/2021 FINDINGS: Tracheobronchial tree: No bronchiectasis or mucus plugging.. Mediastinum and Feder[place]: No dominant adenopathy or fluid collection. Pulmonary parenchyma: No consolidation or dominant measurable mass. Mild emphysematous changes, great er in the upper lobes. Lung Nodules: Stable 7 millimeter circumscribed nodule right upper lobe. No new nodules. Pleura: No effusion. No pneumothorax. Heart: The heart is mildly dilated. Moderate coronary artery calcifications are seen. Aorta: Thoracic aorta non-dilated.Moderate atherosclerotic changes. Upper abdomen: Left adrenal nodule. Bones: Degenerative changes. Stable appearance of L1 compression fracture with vertebral plasty Soft Tissues: Unremarkable. IMPRESSION: Stable 7 millimeter nodule right upper lobe. Lung RADS Cat 2 - Benign Appearance / Behavior: Nodules with a very low likelihood of becoming a clin ically active cancer due to size or lack of growth Lung-RADS 1.0 CATEGORIES: Category 0 - Prior chest CT exam(s) being located for comparison. Category 1 - Annual screening in 12 months. No nodules or definitely benign nodules. Category 2 - Annual screening in 12 months. Benign appearance. Nodules with low likelihood of becomin g active cancer. Category 3 - 6-month follow-up. Probably benign. Short-term follow-up suggested. Nodules with low lik elihood of becoming active cancer. Category 4A - 3-month follow-up and CT/PET if >8 mm in size. Suspicious finding. Findings which requi re additional testing. Category 4B - Findings which require additional testing and tissue sampling. Category 4X - Category 3 or 4 nodules with additional features or imaging findings that increases the suspicion of malignancy. Modifier S- Potentially clinically significant findings (non lung cancer) RADIATION DOSE DELIVERED: 77.45mGy.cm Total DLP DATA REPOSITORY: All CT scans at this facility are submitted to the National Radiology Data Registry (NRDR) Dose Index Registry (DIR) with the [employer] (ACR). RADIATION OPTIMIZATION: All CT scans at this facility use at least one of these dose optimization te chniques: automated exposure control; mA and/or kV adjustment per patient size (includes targeted exa ms where dose is matched to clinical indication); or iterative reconstruction.
== END 2022-12-08 01:39 ==
LOC: DI 01:20
PROVIDERS: PCP Physician Assistant Medical; Visit Provider Physician Assistant Medical
DX: F17.210 Nicotine dependence, cigarettes, uncomplicated (principal); Z12.2 Encounter for screening for malignant neoplasm of respiratory organs; R91.1 Solitary pulmonary nodule
CPT/HCPCS: 71271

== ENCOUNTER 2022-12-18 03:34 | Outpatient (CLI) | payer MEDICARE, OTHER, SELFPAY ==
[2022-12-18 08:00] LABS: ALT 40 U/L (16-63); AST 19 U/L (15-37); Albumin 3.7 g/dL (3.4-5.0); Alkaline Phosphatase 96 U/L (46-116); Anion Gap 8.9 mmol/L (3-11); BUN 13 mg/dL (7-18); Bilirubin, Total 0.7 mg/dL (0.2-1.0); CO2 28.1 mmol/L (21.0-32.0); Calcium 9.4 mg/dL (8.5-10.1); Calculated LDL 104 mg/dL (<100); Chloride 101 mmol/L (98-107); Cholesterol 180 mg/dL (<200); Estimated GFR 81.47 (mL/min/1.73m2); Glucose 127 mg/dL (74-106); HDL Cholesterol 53 mg/dL (40-60); Potassium 4.1 mmol/L (3.5-5.1); Sodium 138 mmol/L (136-145); Total Protein 7.8 g/dL (6.4-8.2); Triglyceride 117 mg/dL (<150)
[2022-12-18 10:20] LABS: Hemoglobin A1C 5.9 % (<5.7)
== END 2022-12-18 03:35 | disposition home or self-care (01) ==
LOC: LBO 03:35
PROVIDERS: PCP Physician Assistant Medical; Visit Provider Physician Assistant Medical
DX: E78.5 Hyperlipidemia, unspecified (principal); R73.03 Prediabetes
CPT/HCPCS: 36415; 80053; 80061; 83036

== ENCOUNTER → 2023-08-20 01:18 | Outpatient (CLI) | payer MEDICARE, OTHER, SELFPAY ==
--- NOTE | 2023-08-20 | DI.US_ITS ---
Exam(s) US AAA DIAGNOSTIC EXAM: US AAA DIAGNOSTIC CLINICAL HISTORY: F/U AAA, I71.4 COMPARISON: US US AAA diagnostic from 09/06/2018 FINDINGS: Abdominal Aorta: Proximal: 2.4 x 2.5 cm Mid: 2.4 x 2.8 cm Distal: 4.1 x 4.0 cm. This compares to 3.6 x 3.8 cm on the prior examination. Iliac's: Right: 2.9 x 2.8 cm. This compares to 2.3 x 2.6 cm on the prior examination. Left: 3.0 x 2.9 cm. This compares to 1.7 x 1.7 cm on the prior examination. Mural thrombus and soft plaque is seen in the infrarenal abdominal aortic aneurysm. No significant a therosclerotic disease is seen. IMPRESSION: 1. Interval increase in size of the infrarenal abdominal aortic aneurysm. 2. 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 DATA REPOSITORY:
== END ==
PROVIDERS: PCP Physician Assistant Medical; Visit Provider Physician Assistant Medical
DX: I71.40 Abdominal aortic aneurysm, without rupture, unspecified (principal); I72.3 Aneurysm of iliac artery
CPT/HCPCS: 93306; 76775

== ENCOUNTER → 2023-08-20 01:19 | Outpatient (CLI) | payer MEDICARE, OTHER, SELFPAY ==
--- NOTE | 2023-08-20 | DI.US_ITS ---
APPROVED REPORT EXAM: Comprehensive 2D, Doppler, and color-flow Echocardiogram Patient Location: Out-Patient Platform Attendant: Jyotsna Meza RDCS (AE) Indications: CAD Other Information Study Quality: Adequate Conclusion Normal left ventricular wall thickness and chamber size. Ejection fraction is 20 to 25%. The inferi or and posterior pena are akinetic. The remainder of the ventricle is hypocontractile Normal right ventricular size and systolic function Both atria are normal in size The aortic valve is mildly sclerotic and trileaflet without stenosis or regurgitation Wall motion Left Ventricle The left ventricle is normal size. Left ventricular systolic function is severely decreased. There is normal left ventricular wall thickness. Regional wall motion abnormalities are noted. There is no ve ntricular septal defect visualized. LVEF is 20-25%. Right Ventricle The right ventricle is normal size. The right ventricular systolic function is normal. Atria The left atrium size is normal. The right atrium size is normal. The interatrial septum is intact wit h no evidence for an atrial septal defect. Aortic Valve The Aortic valve is mildly sclerotic. Aortic valve is trileaflet. There is no aortic valvular stenosi s. No aortic regurgitation is present. Mitral Valve The mitral valve is normal in structure. No evidence of mitral valve stenosis. Trace to mild mitral regurgitation. Tricuspid Valve The tricuspid valve is normal in structure. There is no tricuspid valve stenosis. Trace tricuspid reg urgitation. Unable to assess PA pressure. Pulmonic Valve Pulmonic valve is grossly normal in structure. There is no pulmonic valvular stenosis. Trivial pulmon ic regurgitation. Great Vessels The aortic root is normal in size. The ascending aorta is normal in size. Aortic arch is not well vis ualized. IVC is normal in size and collapses >50% with inspiration. Pericardium There is no pericardial effusion. 2D Dimensions IVSD d PLAX 0.87 cm M: 0.6-1.2 Ao Root d 3.31 cm M: 3.1 - 3.7 LVPW d PLAX 0.86 cm M: 0.6 - 1.2 Ao Asc Diam d 3.30 cm M: 2.6 - 3.4 LVID d PLAX 5.75 cm M: 4.2 - 5.8 LVDs 5.12 cm M: 2.5 - 4.0 LV EF Teichholz 23.5 % FS 10.98 % LV EDV (Teich) 163.4 mL LV ESV (Teich) 125.0 mL M-Mode TAPSE 2.06 cm (M/F) >1.7 Auto EF LV EDV A4C 169.9 mL LV EDV A2C 189.4 mL LV EDV BP 175.8 mL LV ESV A4C 138.1 mL LV ESV A2C 144.9 mL LV ESV BP 139.8 mL LVEF(%) A4C 18.7 % LVEF(%) A2C 23.5 % LVEF(%) BP 20.5 % LV SV A4C 31.8 ml LV SV A2C 44.4 ml LV SV BP 36.0 ml LV CO A4C 2.5 L/min LV CO A2C 3.6 L/min LV CO BP 3.1 L/min HR A4C 79.47 BPM HR A2C 81.64 BPM LV EDV Index (BP) LV Strain Long Pk Overal Avg (s) 7.98 RV Strain Global Peak Long. Strain A4C 17.25 Global Peak Long. Strain A4C FW 21.91 LA Volume LA Length A4C 4.9 cm LA Length A2C 4.9 cm LA Area A4C s 15.72 cm2 LA Area A2C s 20.31 cm2 LA Vol A4C A-L 42.81 mL LA Vol A2C A-L 71.92 mL LA Vol Biplane A-L 55.7 mL LA Vol/BSA A4C A-L LA Vol/BSA A2C A-L LA Vol/BSA BP A-L 29.4 mL/m2 LA Vol A4C MOD 39.7 mL LA Vol A2C MOD 67.3 mL LA Vol BP MOD 51.8 mL RA Volume RA Area A4C 9.3 cm2 RA ESV A4C (A-L) 19.9mL RA Vol/BSA A4C A-L RA Length A4C 3.7 cm RA ESV A4C (MOD) 19.4mL LV Diastology MV E' medial 0.049 (>0.07 m/s) MV E Vmax 0.64 (0.4-1.3 m/s) MV E/E' MED 12.97 (<14) MV A Vmax 0.90 (0.4-1.3 m/s) MV E' lateral 0.082 (>0.1 m/s) E/A Ratio 0.7 MV E/E' LAT 7.77 (<14) MV E' Average 0.065 m/s MV E/E'(average) 9.72 Aortic Valve AoV Vmax 1.48 m/s LVOT Vmax 0.99 m/s AoV Peak Grad 8.8 mmHg LVOT Peak Grad 3.9 mmHg AoV Area (Vmax) 2.17 cm2 LVOT VTI 0.173 m AoV VTI 0.312 m LVOT Mean Grad 1.9 mmHg AoV Mean Julio. 1.00 m/s LVOT SV 56.57 mL AoV Mean Grad 4.5 mmHg LVOT Diam s 2.00 cm AoV Area (VTI) 1.81 cm2 Velocity Ratio 0.67 Mitral Valve MV DT 187 (160-240 msec) Pulmonary Valve PV Vmax 1.06 (0.5-1.5 m/s) RVOT Vmax 0.51 m/s PV Peak Grad 4.5 mmHg RVOT Peak Gr. 1.0 mmHg PV Mean Julio 0.71 m/s RVOT VTI 0.093 m PV Mean Grad 2.4 mmHg RVOT Mean Gr. 0.5 mmHg Tricuspid Valve RA Pressure 3.00 mmHg TV S' 0.13 m/s
== END ==
PROVIDERS: PCP Physician Assistant Medical; Visit Provider Registered Nurse Emergency
DX: I25.10 Atherosclerotic heart disease of native coronary artery without angina pectoris (principal)
CPT/HCPCS: 93306

== ENCOUNTER → 2023-12-30 02:59 | Outpatient (CLI) | payer MEDICARE, OTHER, SELFPAY ==
--- NOTE | 2023-12-30 | DI.CTLCSR_ITS ---
Exam(s) CT CHEST LUNG CANCER SCREEN EXAM: CT CHEST LUNG CANCER SCREEN CLINICAL HISTORY: SCREENING FOR LUNG CA,CURRENT SMOKER, F17.210 TECHNIQUE: Imaging Protocol: Axial computed tomography images with coronal and sagittal reformatted images were created and reviewed COMPARISON: CT CT CHEST LUNG CANCER SCREEN from 10/15/[address] CHEST LUNG CANCER SCREEN from 12/08/2022 FINDINGS: Tracheobronchial tree: Patent where visualized. Pulmonary parenchyma: No consolidation or dominant measurable mass. Mild centrilobular emphysematous changes are present. There is a 4 mm stable area of nodularity in the anterior aspect of the lateral right lower lobe (series 3, image 385). Lung Nodules: There is a stable 7 mm nodule in the right upper lobe (series 3, image 196). No new pu lmonary nodules are present. Mediastinum and Feder[place]: No dominant adenopathy or fluid collection. The esophagus is unremarkable. Thyroid gland: Unremarkable. Lymph nodes: Unremarkable. Pleura: No effusion or pneumothorax. Heart: The heart is not dilated. Marked coronary artery calcification and/or stents are present. No pericardial effusion. Aorta: Thoracic aorta non-dilated.Atherosclerotic calcification is present. Upper abdomen: There is stable bilateral adrenal nodules and stable left renal cysts. No follow-up is recommended. Soft Tissues: Unremarkable. Bones: Within normal limits. IMPRESSION: Stable pulmonary nodules. Lung RADS Cat 2 - Benign Appearance / Behavior: Nodules with a very low likelihood of becoming a clin ically active cancer due to size or lack of growth Lung-RADS 1.0 CATEGORIES: Category 0 - Prior chest CT exam(s) being located for comparison. Category 1 - Annual screening in 12 months. No nodules or definitely benign nodules. Category 2 - Annual screening in 12 months. Benign appearance. Nodules with low likelihood of becomin g active cancer. Category 3 - 6-month follow-up. Probably benign. Short-term follow-up suggested. Nodules with low lik elihood of becoming active cancer. Category 4A - 3-month follow-up and CT/PET if >8 mm in size. Suspicious finding. Findings which requi re additional testing. Category 4B - Findings which require additional testing and tissue sampling. Suspicious finding. Category 4X - Category 3 or 4 nodules with additional features or imaging findings that increases the suspicion of malignancy. Modifier S- Potentially clinically significant finding. (Non lung cancer) RADIATION DOSE DELIVERED: Total DLP Total DLP DATA REPOSITORY: All CT scans at this facility are submitted to the National Radiology Data Registry (NRDR) Dose Index Registry (DIR) with the [employer] (ACR). RADIATION OPTIMIZATION: All CT scans at this facility use at least one of these dose optimization te chniques: automated exposure control; mA and/or kV adjustment per patient size (includes targeted exa ms where dose is matched to clinical indication); or iterative reconstruction.
== END ==
PROVIDERS: PCP Physician Assistant Medical; Visit Provider Nurse Practitioner Family
DX: F17.210 Nicotine dependence, cigarettes, uncomplicated (principal); Z12.2 Encounter for screening for malignant neoplasm of respiratory organs; R91.1 Solitary pulmonary nodule
CPT/HCPCS: 71271

== ENCOUNTER 2023-12-31 03:02 | Outpatient (CLI) | payer MEDICARE, OTHER, SELFPAY ==
[2023-12-31 11:50] LABS: Hemoglobin A1C 6.1 % (<5.7)
[2023-12-31 12:12] LABS: ALT 33 U/L (16-63); AST 18 U/L (15-37); Albumin 3.4 g/dL (3.4-5.0); Alkaline Phosphatase 96 U/L (46-116); Anion Gap 7.5 mmol/L (3-11); BUN 14 mg/dL (7-18); Bilirubin, Total 0.5 mg/dL (0.2-1.0); CO2 29.5 mmol/L (21.0-32.0); Calcium 9.1 mg/dL (8.5-10.1); Calculated LDL 114 mg/dL (<100); Chloride 101 mmol/L (98-107); Cholesterol 171 mg/dL (<200); Estimated GFR 80.97 (mL/min/1.73m2); Glucose 118 mg/dL (74-106); HDL Cholesterol 44 mg/dL (40-60); Potassium 4.2 mmol/L (3.5-5.1); Sodium 138 mmol/L (136-145); Total Protein 7.5 g/dL (6.4-8.2); Triglyceride 68 mg/dL (<150)
[2023-12-31 20:09] LABS: PSA, Screening 1.9 ng/mL (<=6.5)
== END 2023-12-31 03:03 | disposition home or self-care (01) ==
LOC: LBO 03:02
PROVIDERS: PCP Physician Assistant Medical; Visit Provider Physician Assistant Medical
DX: R73.03 Prediabetes (principal)
CPT/HCPCS: 36415; 80053; 80061; 84153; 83036

== ENCOUNTER 2024-04-07 15:11 | Observation (INO) | payer MEDICARE, OTHER, SELFPAY ==
[2024-04-07] VITALS (20 sets, daily range): BP systolic 115–162; BP diastolic 56–102; PULSE 50–94; RESP 12–24; TEMP 36.5–37; O2SAT 94–98
--- NOTE | 2024-04-07 15:30 | DI.CT_ITS ---
Exam(s) CT ABDOMEN PELVIS W EXAM: CT ABDOMEN PELVIS W CLINICAL HISTORY: abdominal pain, llq. TECHNIQUE: Imaging Protocol: Axial computed tomography images with coronal and sagittal reformatted images were created and reviewed CONTRAST MATERIAL: Intravenous: Omnipaque 350 Contrast volume:100 ml Oral: / no COMPARISON: US US AAA diagnostic from 09/06/[address] CHEST PE CTA from 12/04/[address] CHEST LUNG CANCER SCREEN from 12/30/2023 FINDINGS: ABDOMEN and PELVIS: Lung Bases: No acute findings. Mild basilar atelectasis. Liver: Normal density. No suspicious mass. Gallbladder and biliary tract: No radiodense calculus. No biliary dilation. Pancreas: Normal density. No abnormal calcifications or inflammatory process. No evidence of mass. Spleen: Normal. Kidneys: Normal size, contour and axis. No radiodense stones. No obstructive uropathy. No suspicious masses seen. Adrenal glands: Stable low-density nodule left adrenal gland consistent with an adenoma. Vasculature: Severe atherosclerotic changes with mural thrombus. Infrarenal abdominal aortic aneurys m measuring 4.3 cm. Bilateral iliac artery aneurysms, 3.6 cm on the left and 3 cm on the right. Sig nificant mural thrombus. Mild increase in size when compared to 2018. Soft tissues: Small fatty containing bilateral inguinal hernias. Bladder: Mild wall thickening. No calculi.No focal mass. Bowel: Fluid and stool seen in the rectum. Colon is otherwise decompressed. There is diverticulosis of the descending colon. No evidence of diverticulitis. No obstruction. No bowel wall thickening . Appendix normal. Peritoneal cavity: No ascites. No focal collection. No mesenteric inflammatory response. Bones: Old L1 compression fracture with high density material within consistent with prior vertebropl asty. Degenerative changes at L5-S1. Reproductive organs: Prostate mildly enlarged Lymph nodes: No pathologically enlarged lymph nodes. IMPRESSION:: Fluid in small amount of stool in the rectum. Remaining colon is empty. No evidence o f diverticulitis. Findings could indicate diarrheal illness. Severe atherosclerotic changes. 4.3 centimeter infrarenal at a abdominal aortic aneurysm. Bilateral iliac artery aneurysms. RADIATION DOSE DELIVERED: 816.29mGy.cm Total DLP DATA REPOSITORY: All CT scans at this facility are submitted to the National Radiology Data Registry (NRDR) Dose Index Registry (DIR) with the [employer] (ACR). RADIATION OPTIMIZATION: All CT scans at this facility use at least one of these dose optimization te chniques: automated exposure control; mA and/or kV adjustment per patient size (includes targeted exa ms where dose is matched to clinical indication); or iterative reconstruction.
[2024-04-07] MEDS: Normal Saline 500 ML IV (15:50)
[2024-04-07 16:02] LABS: Abs Immature Grans 0.23 10^3/uL (0.0-0.06); Absolute Eosinophil Count 0.14 10^3/uL (0.0-0.7); Absolute Lymphocyte Count 2.01 10^3/uL (1.2-3.4); Absolute Monocyte Count 1.43 10^3/uL (0.1-0.8); Absolute Neutrophil Count 11.64 10^3/uL (1.2-6.7); Basophils % 0.8 %; Eosinophils % 0.9 %; HCT 50.7 % (40.0-50.0); HGB 17.3 g/dL (13.5-17.5); Immature Grans % 1.5 %; Lymphocytes % 12.9 %; MCH 32.2 pg (27.0-33.0); MCHC 34.1 % (32.0-36.0); MCV 94 fL (80-95); MPV 10.7 fL (8.0-11.0); Monocytes % 9.2 %; Neutrophils % 74.7 %; Platelet Count 259 10^3/uL (130-400); RBC 5.38 10^6/uL (4.36-5.78); RDW 13.7 % (11.8-14.1); RDW-SD 47.6 fL; WBC 15.58 10^3/uL (4.4-10.8)
[2024-04-07 16:05] LABS: Absolute Basophil Count 0.12 10^3/uL (0.0-0.2)
[2024-04-07 16:15] LABS: Bilirubin Negative (Negative); Blood Trace-lysed (Negative); Clarity Sl Cloudy (Clear); Glucose Negative (Negative); Ketones Negative (Negative); Leukocyte Esterase Negative (Negative); Nitrite Negative (Negative); Urobilinogen 0.2 mg/dL (Up to 0.2)
[2024-04-07 16:18] LABS: ALT 37 U/L (16-63); AST 26 U/L (15-37); Albumin 3.7 g/dL (3.4-5.0); Alkaline Phosphatase 96 U/L (46-116); Anion Gap 11.1 mmol/L (3-11); BUN 25 mg/dL (7-18); Bilirubin, Total 0.47 mg/dL (0.2-1.0); CO2 24.9 mmol/L (21.0-32.0); CREATININE 1.4 mg/dL (0.70-1.30); Calcium 9.5 mg/dL (8.5-10.1); Chloride 102 mmol/L (98-107); Estimated GFR 54.07 (mL/min/1.73m2); Glucose 132 mg/dL (74-106); Lipase 41 U/L (16-77); Sodium 138 mmol/L (136-145); Total Protein 7.7 g/dL (6.4-8.2)
[2024-04-07 16:22] LABS: Bacteria Rare HPF (Negative); Crystals Negative HPF (Negative); Epithelial Cells Negative HPF (Negative); Mucus Trace (Negative); RBC 0-2 HPF (0-2)
[2024-04-07 16:23] LABS: C & S Indicated? No; Casts 5-10 Hyaline LPF (Negative)
[2024-04-07] MEDS: Normal Saline - Diluent 50 ML VIAL IJ (16:39)
[2024-04-07] MEDS: Normal Saline Flush 10 ML SYR IVP (16:40)
[2024-04-07] MEDS: Omnipaque 350 MG/ML 100 ML BTL IJ (16:41)
--- NOTE | 2024-04-07 16:41 | ED.GENADUL_ITS ---
Discharge Plan Disposition Patient Disposition: Admit to [facility] Condition: Stable Discharge Details Clinical Impression: C. difficile colitis, SUSANNE (acute kidney injury), Acute GI bleeding Primary Care Provider: Leonid Hernandez ED Provider: Radha Hernandes Home Meds and New Rx's Prescriptions: No Action Incruse Ellipta 62.5 mcg/actuation blister with device 1 inh IH DAILY nitroglycerin [Nitrostat] 0.4 MG tablet, sublingual 0.4 mg Buccal ONCE PRN Qty: 30 clopidogrel [Plavix] 75 MG tablet 75 mg PO DAILY 90 Days Qty: 90 0RF lisinopril 10 MG tablet 10 mg PO DAILY 90 Days Qty: 90 3RF clotrimazole-betamethasone 1-0.05 % cream 1 applic topical BID escitalopram oxalate 5 mg tablet 5 mg PO DAILY omeprazole 20 mg capsule,delayed release(DR/EC) 20 mg PO DAILY cyclobenzaprine 10 mg tablet 10 mg PO BID PRN albuterol sulfate [ProAir HFA] 90 mcg/actuation HFA aerosol inhaler 2 puff inhalation Q6H PRN HPI General Date/Time Provider Initiated Documentation: 04/07/24 15:12 . HPI Narrative: 68-year-old gentleman with history of infrarenal abdominal aortic aneurysm, COPD, coronary artery disease, TIA, ischemic cardiomyopathy presents with report to have left lower quadrant abdominal pain intermittently for the past several days. He states that he developed diarrhea today, 3 episodes. He had some blood in the toilet paper when he wipes but denies any blood in the bowl. Denies any chest pain or shortness of breath. Denies any dizziness or weakness. Takes Plavix but denies any additional anticoagulation. Denies any nausea or vomiting. Did complete a course of antibiotics approximately 10 days ago for an upper respiratory infection per patient. Denies prior history of C. difficile colitis. States he is actually feeling improvement after this 3 episodes of pham rrhea, last episode several hours prior denies any urinary complaints. Related Data Home Medications Medication Instructions Recorded Confirmed nitroglycerin 0.4 mg sublingual 0.4 mg buccal ONCE PRN #30 tab-caps 11/02/12/08/21 tablet (Nitrostat) clopidogrel 75 mg tablet (Plavix) 75 mg PO DAILY 90 days #90 tab-caps 01/07/18 12/08/21 lisinopril 10 mg tablet 10 mg PO DAILY 90 days #90 tabs 01/07/18 12/08/21 umeclidinium 62.5 mcg/actuation 1 inh inhalation DAILY 04/20/19 12/08/21 blister powder for inhalation (Incruse Ellipta) albuterol sulfate 90 mcg/actuation 2 puff inhalation Q6H PRN 10/22/21 12/08/21 aerosol inhaler (ProAir HFA) clotrimazole-betamethasone 1 1 applic topical BID 10/22/21 12/08/21 %-0.05 % topical cream cyclobenzaprine 10 mg tablet 10 mg PO BID PRN 10/22/21 12/08/21 escitalopram oxalate 5 mg tablet 5 mg PO DAILY 10/22/21 12/08/21 omeprazole 20 mg capsule,delayed 20 mg PO DAILY 10/22/21 12/08/21 release Previous Rx's Medication Instructions Recorded clopidogrel 75 mg tablet (Plavix) 75 mg PO DAILY 90 days #90 tab-caps 01/07/18 lisinopril 10 mg tablet 10 mg PO DAILY 90 days #90 tabs 01/07/18 Allergies Allergy/AdvReac Type Severity Reaction Status Date / Time bupropion Allergy Intermediate HIVES Unverified 04/07/24 15:18 Beta-Blockers Allergy Unknown PER MD Unverified 04/07/24 15:18 (Beta-Adrenergic Bloc Dyxydht-RSF-RsF Reductase AdvReac Unknown GI UPSET Unverified 04/07/24 15:18 Inhibitor [Lbrqimo-Wcm-Esp Reductase Inhibitor] General Stated Complaint: Nausea/Vomit/Diar NIC: 4 Exam Narrative Exam Narrative: Alert and oriented gentleman, tenderness to left lower quadrant appreciated, no rebound or guarding, no CVA tenderness, moist mucous membranes, no respiratory distress, cardiac rate rhythm regular, alert and oriented x 4, no peripheral edema, distal pulses intact Course Vital Signs Vital signs: Vital Signs Temperature 36.5 C 04/07/24 15:12 Pulse 50 L 04/07/24 15:12 Respiratory Rate 18 04/07/24 15:12 Blood Pressure 139/102 H 04/07/24 15:12 Pulse Oximetry 98 04/07/24 15:12 Temperature 36.5 C 04/07/24 15:12 Temperature Source Temporal Artery Scan 04/07/24 15:12 Pulse 50 L 04/07/24 15:12 Respiratory Rate 18 04/07/24 15:12 Respiratory Effort Normal, Non-Labored 04/07/24 15:17 Blood Pressure 139/102 H 04/07/24 15:12 Blood Pressure Position Sitting 04/07/24 15:12 Pulse Oximetry 98 04/07/24 15:12 Oxygen Delivery Method Room Air 04/07/24 15:12 Oxygen Flow Rate 0 04/07/24 15:12 Pain Level 0 04/07/24 15:12 Lab/Test Results Lab/Test Results: Laboratory Tests Range/Units 04/07/24 15:10 WBC (4.4-10.8) 10^3/uL 15.58 H RBC (4.36-5.78) 10^6/uL 5.38 Hgb (13.5-17.5) g/dL 17.3 Hct (40.0-50.0) % 50.7 H MCV (80-95) fL 94 MCH (27.0-33.0) pg 32.2 MCHC (32.0-36.0) % 34.1 RDW (11.8-14.1) % 13.7 Plt Count (130-400) 10^3/uL 259 MPV (8.0-11.0) fL 10.7 Immature Gran % % 1.5 Neutrophils % % 74.7 Lymphocytes % % 12.9 Monocytes % % 9.2 Eosinophils % % 0.9 Basophils % % 0.8 Nucleated RBC % (0.0-0.3) % 0.0 Absolute Neutrophils (1.2-6.7) 10^3/uL 11.64 H Absolute Lymphocytes (1.2-3.4) 10^3/uL 2.01 Absolute Monocytes (0.1-0.8) 10^3/uL 1.43 H Absolute Eosinophils (0.0-0.7) 10^3/uL 0.14 Absolute Basophils (0.0-0.2) 10^3/uL 0.12 Sodium (136-145) mmol/L 138 Potassium (3.5-5.1) mmol/L 4.0 Chloride (98-107) mmol/L 102 Carbon Dioxide (21.0-32.0) mmol/L 24.9 Anion Gap (3-11) mmol/L 11.1 H BUN (7-18) mg/dL 25 H Creatinine (0.70-1.30) mg/dL 1.4 H Est GFR (CKD-EPI 2020) (mL/min/1.73m2) 54.07 Glucose (74-106) mg/dL 132 H Calcium (8.5-10.1) mg/dL 9.5 Magnesium (1.8-2.4) mg/dL 2.0 Total Bilirubin (0.2-1.0) mg/dL 0.47 AST (15-37) U/L 26 ALT (16-63) U/L 37 Alkaline Phosphatase (46-116) U/L 96 Total Protein (6.4-8.2) g/dL 7.7 Albumin (3.4-5.0) g/dL 3.7 Lipase (16-77) U/L 41 Urine Color (Yellow) Yellow Urine Clarity (Clear) Sl Cloudy Urine pH (5-8) 5.0 Ur Specific [place] (1.005-1.025) 1.020 Urine Protein (Neg-Trace) mg/dL Negative Urine Ketones (Negative) mg/dL Negative Urine Blood (Negative) Trace-lysed H Urine Nitrite (Negative) Negative Urine Bilirubin (Negative) Negative Urine Urobilinogen (Up to 0.2) mg/dL 0.2 Ur Leukocyte Esterase (Negative) Negative Urine RBC (0-2) HPF 0-2 Urine WBC (0-5) HPF 3-5 Ur Epithelial Cells (Negative) HPF Negative Urine Crystals (Negative) HPF Negative Urine Bacteria (Negative) HPF Rare Urine Casts (Negative) LPF 5-10 Hyaline Urine Mucus (Negative) Trace Ur Culture Indicated? No Urine Glucose (Negative) mg/dL Negative Medical Decision Making 68-year-old male presents in no acute distress with report of bloody diarrhea and left lower quadrant pain. 3 episodes of diarrhea prior to arrival with 1 bloody stool this afternoon while wiping predominantly. During his stay he had to stools full of bright red blood. Patient remains hemodynamically stable in no acute distress. He does appear dehydrated with a creatinine elevation to 1.4, last was within normal limits. Takes Plavix, platelets and CBC reassuring. Denies any fever or chills and abdominal exam is relatively benign. I was able to visualize bloody stool with some mucus in it. CT interestingly does not show evidence of obvious colitis. Case discussed with Dr. Kirby, surgery, given p atient is atherosclerosis and aneurysm recommends we speak with vascular, I spoke with Dr. Carrera who states that the aneurysms are not contributing to the patient's presentation and patient would not likely develop ischemic colitis in this setting. Patient did test positive for C. difficile with PCR, I was asked by surgery to perform a confirmatory test but I spoke with lab and they state this is a confirmatory test and that the patient is in fact positive for C. difficile at this time and recommend treatment. Given patient's leukocytosis, bloody stools, and diarrhea I will treat with fidaxomicin and admit patient for observation overnight given significant blood in stool. As patient remains hemodynamically stable, no additional intervention at this time, fluid hydration supplied and surgery will consult tomorrow as needed. Patient is agreeable to admission at this time. Will hold on patient's Plavix. No recommendation for Protonix at this time as the source is likely infectious. Quality:SDOH Health Related Social Needs: No Data to Display [facility] All Active Problems (Updated 04/07/24 @ 22:22 by VITO Basilio) Acute GI bleeding (Acute) SUSANNE (acute kidney injury) (Acute) Hematochezia (Acute) SUSANNE (acute kidney injury) (Acute) Hyperglycemia without ketosis (Chronic) Diverticulosis (Chronic) Left lower quadrant abdominal pain (Acute) C. difficile colitis (Acute) Ischemic colitis (Acute) COPD (chronic obstructive pulmonary disease) (Chronic) Lipoma (Acute) Chest pain (Acute) Aneurysm of infrarenal abdominal aorta (Chronic 05/07/18) Ragsdale's esophagus (Acute 02/28/13) - February 2013 REPEAT GASTROSCOPY 2016 Coronary atherosclerosis of [place] coronary vessel (Acute 12/20/12) [place] x 2/ stent in 2012: 11/1999: inf. myocardial infarction- tx: lytic therapy 11/2011: myocardial infarction - tx:drug eluting stent Coronary artery disease involving [place] coronary artery of [place] heart without angina pectoris (Chronic 05/07/18) H/O TIA (transient ischemic attack) and stroke (Acute 05/07/18) Ischemic cardiomyopathy (Chronic 05/07/18) Peripheral vascular disease (Chronic 05/07/18) Polyp of colon (Acute 12/20/12) tuular adenoma x2: February 2013/ Ventricular tachycardia, nonsustained (Acute 05/07/18) Medical History GERD (gastroesophageal reflux disease) PVD (peripheral vascular disease) Cardiomyopathy Spinal compression fracture TIA (transient ischemic attack) FEROZ (obstructive sleep apnea) Low back pain Depression Statin intolerance (05/07/18) Irritable colon HTN (hypertension) Prediabetes Hyperlipidemia Surgical History Repair of umbilical hernia EGD - IV Sedation (06/27/16) DR. PINEDO; RAGSDALE'S ESOPHAGUS Coronary Stent Colonoscopy - IV Sedation (06/27/16) DR. PINEDO Colonoscopy - IV Sedation (02/25/13) DR. PINEDO Social History Smoking/Tobacco Use Status: Current every day Tobacco Type: cigarettes Smoking risk assessment performed?: Yes Alcohol Intake: current Alcohol Intake frequency: 0-2 drinks per day Alcohol type: wine and hard liquor Drug use: Never Substance use type: does not use Do you feel safe at home: Yes Do you feel safe in your relationship?: Yes
[2024-04-07] MEDS: Normal Saline 1,000 ML 1000 ML IV (17:00)
[2024-04-07 18:25] LABS: C Diff PCR Positive (Negative)
--- NOTE | 2024-04-07 20:31 | W.SURGCON ---
Date of service: 04/07/24 Time of Service: 19:55 Assessment and Plan Assessment and plan (1) Ischemic colitis: Status: Acute Assessment and plan: This is a 68-year-old man who reportedly had some bloody diarrhea (x 3) but is otherwise hemodynamically stable and has some mild to moderate abdominal pain over the last couple of days or possibly longer. It has been in the 90+ degree temperature range over the last 2 days here which is unusually hot as well as extremely humid. There have been heat warnings for the last 2 days. I doubt this is C. difficile colitis whether or not lab testing is positive. Clinically does not sound like C. difficile. I suspect that the patient has some amount of ischemic colitis. My guess is this is related to chronically poor blood flow that is acutely exacerbated by dehydration. The timeframe that he has been having abdominal discomfort is reassuring from acuity standpoint however I am very suspicious this is somehow all related to underlying vascular disease. It is of no surprise to me then, after presuming this, that his CT scan shows an abdominal aneurysm, iliac aneurysms, and intramural thrombus. There is also report that the aneurysm has increased in size compared with last examination. I am not sure whether or not this is a symptomatic aneurysm, but I certainly would not miss that diagnosis. Until proven or suspected otherwise, I would say that this is low?flow ischemia to the colon, causing an acute but stable ischemic colitis. I think this is in the setting of a decreased?perfusion SANDRINE that is associated with a known, enlarging aneurysm. I recommended, to the ER provider, to get vascular surgery input formally. I specifically DO NOT RECOMMEND that the patient is admitted to our hospital until vascular surgery has weighed in. I do think this could be a symptomatic aneurysm even though it does not meet size criteria for intervention. I defer to vascular surgery to make a call in that regard. If vascular surgery says the aneurysm is not an urgent situation and this is NOT ischemic colitis related to the aneurysm, then I would recommend he be admitted to the hospital service for IV fluid resuscitation, monitoring and rechecking his lab work in the morning and serial abdominal exams to make sure this does not worsen. Overall plan and recommendation: I think the abdominal pain, diarrhea and bloody diarrhea is ischemic colitis in the setting of severe vascular disease -and likely low?flow state during a heat wave I think vascular surgery needs to be consulted regarding the aneurysms If vascular surgery declines transfer, the patient should be admitted to the medical service for rehydration and monitoring Ischemic colitis is not a surgical condition unless it progresses into diffuse peritonitis, perforation (free air) or symptoms that do not respond or improve with resuscitation efforts. If patient ends up getting admitted, the surgical service will follow along. History of Present Illness Narrative: I was called by the ER provider to discuss this case. The patient is described to me as a 68-year-old man who has had abdominal discomfort for over a week. He started having diarrhea today. There has been blood in his diarrhea. He has had a total of 3 diarrhea episodes. There is concern that he has C. difficile because significant back positive but CT scan does not show dilation or colitis. The question posed to me is whether or not he can be discharged home safely and have outpatient follow-up. He has a leukocytosis. He reportedly had some mild to moderate abdominal pain that is constant but not significant on examination. PFSH All Active Problems (Updated 04/07/24 @ 21:18 by Colten Kirby MD) Ischemic colitis (Acute) COPD (chronic obstructive pulmonary disease) (Acute) Lipoma (Acute) Chest pain (Acute) Aneurysm of infrarenal abdominal aorta (Acute 05/07/18) Ragsdale's esophagus (Acute 02/28/13) - February 2013 REPEAT GASTROSCOPY 2016 Coronary atherosclerosis of [place] coronary vessel (Acute 12/20/12) [place] x 2/ stent in 2012: 11/1999: inf. myocardial infarction- tx: lytic therapy 11/2011: myocardial infarction - tx:drug eluting stent Coronary artery disease involving [place] coronary artery of [place] heart without angina pectoris (Acute 05/07/18) H/O TIA (transient ischemic attack) and stroke (Acute 05/07/18) Ischemic cardiomyopathy (Acute 05/07/18) Peripheral vascular disease (Acute 05/07/18) Polyp of colon (Acute 12/20/12) tuular adenoma x2: February 2013/ Ventricular tachycardia, nonsustained (Acute 05/07/18) Medical History (Updated 04/07/24 @ 21:18 by Colten Kirby MD) GERD (gastroesophageal reflux disease) PVD (peripheral vascular disease) Cardiomyopathy Spinal compression fracture TIA (transient ischemic attack) FEROZ (obstructive sleep apnea) Low back pain Depression Statin intolerance (05/07/18) Irritable colon HTN (hypertension) Prediabetes Hyperlipidemia Surgical History Repair of umbilical hernia EGD - IV Sedation (06/27/16) DR. PINEDO; RAGSDALE'S ESOPHAGUS Coronary Stent Colonoscopy - IV Sedation (06/27/16) DR. PINEDO Colonoscopy - IV Sedation (02/25/13) DR. PINEDO Social History Smoking/Tobacco Use Status: Current every day Tobacco Type: cigarettes Smoking risk assessment performed?: Yes Alcohol Intake: current Alcohol Intake frequency: 0-2 drinks per day Alcohol type: wine and hard liquor Drug use: Never Substance use type: does not use Do you feel safe at home: Yes Do you feel safe in your relationship?: Yes Exam Narrative Exam Narrative: Exam is relayed to me by the ER provider: Hemodynamically stable and nontoxic. Abdominal exam: Soft and nondistended but mildly tender diffusely. No peritoneal signs. Results Last Vital Signs Temp 97.7 F 04/07/24 15:12 Pulse 79 04/07/24 18:44 Resp 12 04/07/24 18:44 BP 136/72 04/07/24 18:44 Pulse Ox 98 04/07/24 18:44 Labs 04/07/24 15:10 04/07/24 15:10 Labs: Laboratory Results - last 24 hr 04/07/24 04/07/24 04/07/24 15:10 17:26 20:11 WBC 15.58 H RBC 5.38 Hgb 17.3 Hct 50.7 H MCV 94 MCH 32.2 MCHC 34.1 RDW 13.7 Plt Count 259 MPV 10.7 Immature Gran % 1.5 Neutrophils % 74.7 Lymphocytes % 12.9 Monocytes % 9.2 Eosinophils % 0.9 Basophils % 0.8 Nucleated RBC % 0.0 Absolute Neutrophils 11.64 H Absolute Lymphocytes 2.01 Absolute Monocytes 1.43 H Absolute Eosinophils 0.14 Absolute Basophils 0.12 VBG Lactate 1.0 Sodium 138 Potassium 4.0 Chloride 102 Carbon Dioxide 24.9 Anion Gap 11.1 H BUN 25 H Creatinine 1.4 H Est GFR (CKD-EPI 2020) 54.07 Glucose 132 H Calcium 9.5 Magnesium 2.0 Total Bilirubin 0.47 AST 26 ALT 37 Alkaline Phosphatase 96 Total Protein 7.7 Albumin 3.7 Lipase 41 Urine Color Yellow Urine Clarity Sl Cloudy Urine pH 5.0 Ur Specific [place] 1.020 Urine Protein Negative Urine Ketones Negative Urine Blood Trace-lysed H Urine Nitrite Negative Urine Bilirubin Negative Urine Urobilinogen 0.2 Ur Leukocyte Esterase Negative Urine RBC 0-2 Urine WBC 3-5 Ur Epithelial Cells Negative Urine Crystals Negative Urine Bacteria Rare Urine Casts 5-10 Hyaline Urine Mucus Trace Ur Culture Indicated? No Urine Glucose Negative Stl C.difficile Tox PCR Positive A
[2024-04-07] MEDS: Fidaxomicin 200 MG TAB PO (21:16)
--- NOTE | 2024-04-07 21:30 | HPE_ITS ---
Date of service: 04/07/24 Time of Service: 21:30 Assessment and Plan Assessment and plan (1) C. difficile colitis: Start date: 04/07/24 Status: Acute Assessment and plan: This is a 68-year-old male patient with new onset diarrhea after several days of left lower quadrant abdominal pain and discomfort. He is very active despite smoking and having significant atherosclerotic vessel disease. He had 3 bouts of loose stools on the day of presentation with blood seen on the toilet paper with wiping. In the ED he had an elevated WBC, slight dehydration with elevated creatinine from baseline along with elevated BUN though he is having no epigastric pain. His anion gap is also slightly elevated. He was not acidotic. He was slightly hyperglycemic with a history of hyperglycemia and not being treated as diabetes. He was treated with oral vancomycin 200 mg twice daily and this will be continued. No negation for Flagyl though he does have diverticulosis and presented with left lower quadrant abdominal pain even though this is improved. If his pain worsens or there is some concern of complicated C. difficile colitis Flagyl IV can be added. Also with evidence of worsening pain consider diverticulitis which would require IV Zosyn for oral antibiotic therapy if not severe. Labs will be trended and patient will be watched closely for exacerbation of CHF with gentle IV hydration at 125 cc an hour of normal saline and having an ischemic cardiomyopathy and ejection fraction around 20% by recent echocardiogram. (2) Hematochezia: Start date: 04/07/24 Status: Acute Assessment and plan: Patient states he had 1 episode in the ED and none since. Observation with surgical consultation. His abdominal pain has improved which is reassuring. (3) Ischemic colitis: Start date: 04/07/24 Status: Acute Assessment and plan: IV hydration and observation overnight. This has been recommended by [facility] vascular surgery as well as general surgery at this facility. (4) Left lower quadrant abdominal pain: Start date: 04/07/24 Status: Acute Assessment and plan: Improving clinically by patient reporting and by exam. Continue to observe for worsening the patient having diverticulosis. Trend lab and symptom. (5) Diverticulosis: Status: Chronic Assessment and plan: Without complications at this time by CT of the abdomen and pelvis. (6) SUSANNE (acute kidney injury): Start date: 04/07/24 Status: Acute Assessment and plan: Elevation and baseline creatinine with patient having IV hydration receiving 1.5 L normal saline in the ED and now on 125 cc/h normal saline per hour. Trend labs. Watch for exacerbation of CHF. (7) Hyperglycemia without ketosis: Status: Chronic Assessment and plan: Glucometer measurements before meals and at bedtime with coverage using short acting insulin with sensitive sliding scale. (8) Ischemic cardiomyopathy: Status: Chronic Assessment and plan: Clinically stable with recent echocardiogram and patient tolerating IV fluids well. Watch closely for exacerbation while hospitalized on IV fluids. Encourage oral hydration with clear liquid diet. No evidence of exacerbation. (9) Coronary artery disease involving craig coronary artery of craig heart without angina pectoris: Status: Chronic Assessment and plan: No evidence of exacerbation with patient to continue outpatient medical therapy. (10) COPD (chronic obstructive pulmonary disease): Status: Chronic Assessment and plan: Patient does continue to smoke will be treated with nebulizer treatments while hospitalized. Qualifiers: COPD type: chronic bronchitis Chronic bronchitis type: simple Qualified Code(s): J41.0 - Simple chronic bronchitis (11) Aneurysm of infrarenal abdominal aorta: Status: Chronic Assessment and plan: Slightly enlarged from 2018 but overall stable clinically with vascular surgery reviewing imaging. Qualifiers: Presence of rupture: without rupture Qualified Code(s): I71.43 - Infrarenal abdominal aortic aneurysm, without rupture (12) GERD (gastroesophageal reflux disease): Assessment and plan: Patient is currently on omeprazole which he takes intermittently being on Plavix this should be changed to Protonix or he should investigate taking an H2 antagonist only intermittently if needed. He should review his medical regimen with his PCP and pharmacy. For now he will be placed on Protonix but his BUN is slightly elevated but no severe azotemia and no symptoms of epigastric pain or acute gastritis. GI bleed with bright red blood and only intermittent, most likely lower GI on Plavix. Qualifiers: Esophagitis presence: without esophagitis Qualified Code(s): K21.9 - Gastro-esophageal reflux disease without esophagitis History of Present Illness History of Present Illness Chief Complaint: 3 episodes of diarrhea with left lower quadrant abdominal pain Narrative: This is a 68-year-old male patient with several day history of left lower quadrant abdominal pain not seeking medical care but then had 3 episodes of diarrhea with some blood on wiping his bottom the day of admission. In the ED he was found to have slight dehydration with observed bright blood per rectum with diarrhea x 1 in the ED. He is not hemodynamically unstable with significant history of atherosclerotic disease and abdominal aneurysms which appear only slightly enlarged compared to [address] without oral but with IV contrast. There was some concern for C. difficile with the patient having recent antibiotic treatment with a full course completed 10 days prior to presentation to the ED, and he was positive. He was initiated on treatment with oral fidaxomicin. Surgery was consulted and will see the patient in the morning. Vascular surgery from [facility] was consulted and added no recommendations other than IV hydration with observation while for treatment of C. difficile colitis. Patient does appear mildly dehydrated with elevation of his creatinine and BUN with elevated WBC at 15,000 with slight elevation in anion gap but no fever or acidosis. Lactate was not checked with TCO2 normal. He does have mild hyperglycemia with no evidence of diagnosis of diabetes. These will be trended. He does have diverticulosis on CT but no evidence of diverticulitis. He states that his abdominal pain was better at the time I saw him for admission. I will consider adding Flagyl IV because of his C. difficile colitis with diverticulosis if becomes complicated or abdominal pain persists or worsens while on oral fidaxomicin for initial treatment. There was some question of ischemic colitis which will be treated by IV hydration and observation according to surgery and vascular surgery but no other interventions indicated at this time. Patient is agreeable to admission for observation and IV hydration while initiating his oral therapy and if no evidence of complications. Will trend labs. He is a full code. Review of Systems Narrative: 13 point review of systems otherwise unrevealing or stable. Patient denies any urinary symptoms and has had no dizziness or palpitations. He denies any fever or rigors at home. He does not give a history of previous diverticulitis. He is on Plavix as well as omeprazole which should be changed to Protonix. He did not have any thrombocytopenia and PT/INR will be checked. He does continue to smoke respiratory status is stable and he is very active outside gardening being darkly tanned. [facility] All Active Problems (Updated 04/08/24 @ 03:48 by Karthik Vargas) Acute GI bleeding (Acute) SUSANNE (acute kidney injury) (Acute) Hematochezia (Acute) SUSANNE (acute kidney injury) (Acute) Hyperglycemia without ketosis (Chronic) Diverticulosis (Chronic) Left lower quadrant abdominal pain (Acute) C. difficile colitis (Acute) Ischemic colitis (Acute) COPD (chronic obstructive pulmonary disease) (Chronic) Lipoma (Acute) Chest pain (Acute) Aneurysm of infrarenal abdominal aorta (Chronic 05/07/18) Ragsdale's esophagus (Acute 02/28/13) - February 2013 REPEAT GASTROSCOPY 2016 Coronary atherosclerosis of craig coronary vessel (Acute 12/20/12) MO x 2/ stent in 2012: 11/1999: inf. myocardial infarction- tx: lytic therapy 11/2011: myocardial infarction - tx:drug eluting stent Coronary artery disease involving craig coronary artery of craig heart without angina pectoris (Chronic 05/07/18) H/O TIA (transient ischemic attack) and stroke (Acute 05/07/18) Ischemic cardiomyopathy (Chronic 05/07/18) Peripheral vascular disease (Chronic 05/07/18) Polyp of colon (Acute 12/20/12) tuular adenoma x2: February 2013/ Ventricular tachycardia, nonsustained (Acute 05/07/18) Medical History GERD (gastroesophageal reflux disease) PVD (peripheral vascular disease) Cardiomyopathy Spinal compression fracture TIA (transient ischemic attack) FEROZ (obstructive sleep apnea) Low back pain Depression Statin intolerance (05/07/18) Irritable colon HTN (hypertension) Prediabetes Hyperlipidemia Surgical History Repair of umbilical hernia EGD - IV Sedation (06/27/16) DR. PINEDO; RAGSDALE'S ESOPHAGUS Coronary Stent Colonoscopy - IV Sedation (06/27/16) DR. PINEDO Colonoscopy - IV Sedation (02/25/13) DR. PINEDO Social History Smoking/Tobacco Use Status: Current every day Tobacco Type: cigarettes Smoking risk assessment performed?: Yes Alcohol Intake: current Alcohol Intake frequency: 0-2 drinks per day Alcohol type: wine and hard liquor Drug use: Never Substance use type: does not use Housing: house Do you feel safe at home: Yes Do you feel safe in your relationship?: Yes Meds Allergies and Home Medications Allergies Allergy/AdvReac Type Severity Reaction Status Date / Time bupropion Allergy Intermediate HIVES Unverified 04/07/24 15:18 Beta-Blockers Allergy Unknown PER MD Unverified 04/07/24 15:18 (Beta-Adrenergic Bloc Nsaedec-KWT-HqO Reductase AdvReac Unknown GI UPSET Unverified 04/07/24 15:18 Inhibitor [Gurjzxz-Cft-Mhi Reductase Inhibitor] Home Medications Medication Instructions Recorded Confirmed Type nitroglycerin 0.4 mg sublingual 0.4 mg buccal ONCE PRN #30 tab-caps 11/02/13 04/08/24 History tablet (Nitrostat) clopidogrel 75 mg tablet (Plavix) 75 mg PO DAILY 90 days #90 tab-caps 01/07/18 04/07/24 Rx lisinopril 10 mg tablet 10 mg PO DAILY 90 days #90 tabs 01/07/18 04/08/24 Rx umeclidinium 62.5 mcg/actuation 1 inh inhalation DAILY 04/20/19 04/08/24 History blister powder for inhalation (Incruse Ellipta) albuterol sulfate 90 mcg/actuation 2 puff inhalation Q6H PRN 10/22/21 04/07/24 History aerosol inhaler (ProAir HFA) clotrimazole-betamethasone 1 1 applic topical BID 10/22/21 04/07/24 History %-0.05 % topical cream cyclobenzaprine 10 mg tablet 10 mg PO BID PRN 10/22/21 04/07/24 History escitalopram oxalate 5 mg tablet 5 mg PO DAILY 10/22/21 04/07/24 History omeprazole 20 mg capsule,delayed 20 mg PO DAILY 10/22/21 04/08/24 History release evolocumab 140 mg/mL subcutaneous 140 mg subcut .biweekly 04/07/24 04/08/24 History pen injector (Repatha SureClick) Exam Narrative Exam Narrative: General: Patient appears appropriate for age, darkly tanned over status post areas, alert and oriented x 3 and in no acute distress. He is sitting in the bedside chair. HEENT: Normocephalic, eyes with pupils equal and reactive to light symmetrically, extraocular movement intact and sclera anicteric. Cornea with dense arcus senilis bilaterally. Oropharynx with moist mucous and good dentition. Neck: Supple without JVD. Back: Normal posture without CVA tenderness. Lungs: Bronchovesicular breath sounds diffusely with no focalizing rales or rhonchi. Slight increased expiratory phase with no expiratory wheeze. Fair aeration. Heart: Regular rate and slightly irregular rhythm with no murmurs or gallops appreciated. Abdomen: Obese contour, soft and nontender to palpation slight guarding left lower quadrant but no rebound. Sounds multiple quadrants. No palpable hepatosplenomegaly. Genitalia/rectal: Exam deferred. Extremities: Without clubbing, cyanosis or pitting edema. Fair capillary refill. Skin: Darkly tanned over the exposed areas, thin without skin breakdown. No rashes or bruising. Otherwise normal color, warm and dry. Neuro: Cranial nerves II through XII grossly intact with no focal motor deficits and no tremor. Psych: Normal mood and affect. No normal thought processes. Remote and recent memory intact. Results Imaging Imaging Studies: EXAM: CT ABDOMEN PELVIS W CLINICAL HISTORY: abdominal pain, llq. TECHNIQUE: Imaging Protocol: Axial computed tomography images with coronal and sagittal reformatted images were created and reviewed CONTRAST MATERIAL: Intravenous: Omnipaque 350 Contrast volume:100 ml Oral: / no COMPARISON: US US AAA diagnostic from 09/06/[address] CHEST PE CTA from 12/04/[address] CHEST LUNG CANCER SCREEN from 12/30/2023 FINDINGS: ABDOMEN and PELVIS: Lung Bases: No acute findings. Mild basilar atelectasis. Liver: Normal density. No suspicious mass. Gallbladder and biliary tract: No radiodense calculus. No biliary dilation. Pancreas: Normal density. No abnormal calcifications or inflammatory process. No evidence of mass. Spleen: Normal. Kidneys: Normal size, contour and axis. No radiodense stones. No obstructive uropathy. No suspicious masses seen. Adrenal glands: Stable low-density nodule left adrenal gland consistent with an adenoma. Vasculature: Severe atherosclerotic changes with mural thrombus. Infrarenal abdominal aortic aneurysm measuring 4.3 cm. Bilateral iliac artery aneurysms, 3.6 cm on the left and 3 cm on the right. Significant mural thrombus. Mild increase in size when compared to 2018. Soft tissues: Small fatty containing bilateral inguinal hernias. Bladder: Mild wall thickening. No calculi.No focal mass. Bowel: Fluid and stool seen in the rectum. Colon is otherwise decompressed. There is diverticulosis of the descending colon. No evidence of diverticulitis. No obstruction. No bowel wall thickening. Appendix normal. Peritoneal cavity: No ascites. No focal collection. No mesenteric inflammatory response. Bones: Old L1 compression fracture with high density material within consistent with prior vertebroplasty. Degenerative changes at L5-S1. Reproductive organs: Prostate mildly enlarged Lymph nodes: No pathologically enlarged lymph nodes. IMPRESSION:: Fluid in small amount of stool in the rectum. Remaining colon is empty. No evidence of diverticulitis. Findings could indicate diarrheal illness. Severe atherosclerotic changes. 4.3 centimeter infrarenal at a abdominal aortic aneurysm. Bilateral iliac artery aneurysms. Date of Exam: 08/20/23 EXAM: Comprehensive 2D, Doppler, and color-flow Echocardiogram Patient Location: Out-Patient Resource Specialist Teacher: Jyotsna Meza RDCS (AE) Indications: CAD Other Information Study Quality: Adequate Conclusion Normal left ventricular wall thickness and chamber size. Ejection fraction is 20 to 25%. The inferior and posterior pena are akinetic. The remainder of the ventricle is hypocontractile Normal right ventricular size and systolic function Both atria are normal in size The aortic valve is mildly sclerotic and trileaflet without stenosis or regurgitation Labs 04/08/24 01:58 04/07/24 15:10 Labs: Laboratory Results - last 24 hr 04/07/24 04/07/24 04/07/24 15:10 17:26 20:11 WBC 15.58 H RBC 5.38 Hgb 17.3 Hct 50.7 H MCV 94 MCH 32.2 MCHC 34.1 RDW 13.7 Plt Count 259 MPV 10.7 Immature Gran % 1.5 Neutrophils % 74.7 Lymphocytes % 12.9 Monocytes % 9.2 Eosinophils % 0.9 Basophils % 0.8 Nucleated RBC % 0.0 Absolute Neutrophils 11.64 H Absolute Lymphocytes 2.01 Absolute Monocytes 1.43 H Absolute Eosinophils 0.14 Absolute Basophils 0.12 VBG Lactate 1.0 Sodium 138 Potassium 4.0 Chloride 102 Carbon Dioxide 24.9 Anion Gap 11.1 H BUN 25 H Creatinine 1.4 H Est GFR (CKD-EPI 2020) 54.07 Glucose 132 H Calcium 9.5 Magnesium 2.0 Total Bilirubin 0.47 AST 26 ALT 37 Alkaline Phosphatase 96 Total Protein 7.7 Albumin 3.7 Lipase 41 Urine Color Yellow Urine Clarity Sl Cloudy Urine pH 5.0 Ur Specific [place] 1.020 Urine Protein Negative Urine Ketones Negative Urine Blood Trace-lysed H Urine Nitrite Negative Urine Bilirubin Negative Urine Urobilinogen 0.2 Ur Leukocyte Esterase Negative Urine RBC 0-2 Urine WBC 3-5 Ur Epithelial Cells Negative Urine Crystals Negative Urine Bacteria Rare Urine Casts 5-10 Hyaline Urine Mucus Trace Ur Culture Indicated? No Urine Glucose Negative Stl C.difficile Tox PCR Positive A Last Vital Signs Temp 36.5 C 04/07/24 15:12 Pulse 79 04/07/24 18:44 Resp 12 04/07/24 18:44 BP 136/72 04/07/24 18:44 Pulse Ox 98 04/07/24 18:44 Time Spent Time spent with Patient: >75 minutes Time was spent: preparing to see the patient(eg.review tests), obtaining and/or reviewing separately otained hiistory, ordering medications,tests, procedures, referring, communicating with other health hiv/aids care nurse, indepentently interpreting results, counseling the patient and care coordination
[2024-04-07 23:04] LABS: Lactate 1.5 mmol/L (0.6-1.4)
[2024-04-07 23:07] LABS: HCT 44.8 % (40.0-50.0); HGB 15.3 g/dL (13.5-17.5); MCH 31.9 pg (27.0-33.0); MCHC 34.2 % (32.0-36.0); MCV 93 fL (80-95); MPV 10.4 fL (8.0-11.0); Platelet Count 227 10^3/uL (130-400); RDW 13.8 % (11.8-14.1); RDW-SD 47.2 fL; WBC 15.67 10^3/uL (4.4-10.8)
[2024-04-07 23:28] LABS: INR 1.1 (0.9-1.1); Prothrombin Time 11.1 sec (9.1-11.1)
[2024-04-08 00:31] VITALS: PULSE 59; RESP 14; RESP 5; O2SAT 97
[2024-04-08] MEDS: Albuterol/Ipratropium 3 ML UPD VIAL UPD ×2 (00:31→05:16)
[2024-04-08] MEDS: Pantoprazole 40 MG TABCR PO ×2 (00:33→08:04)
[2024-04-08 02:04] LABS: HCT 45.4 % (40.0-50.0); HGB 15.6 g/dL (13.5-17.5); MCH 32.4 pg (27.0-33.0); MCHC 34.4 % (32.0-36.0); MCV 94 fL (80-95); Platelet Count 220 10^3/uL (130-400); RBC 4.81 10^6/uL (4.36-5.78); RDW 13.6 % (11.8-14.1); RDW-SD 47.7 fL; WBC 17.58 10^3/uL (4.4-10.8)
[2024-04-08 05:10] VITALS: BP 106/69; PULSE 92; RESP 16; TEMP 38; O2SAT 98
[2024-04-08] MEDS: Acetaminophen 325 MG TAB PO (05:11)
[2024-04-08 05:16] VITALS: RESP 14; RESP 5; O2SAT 98
[2024-04-08 06:27] LABS: HCT 43.8 % (40.0-50.0); HGB 14.9 g/dL (13.5-17.5); MCH 32.1 pg (27.0-33.0); MCV 94 fL (80-95); MPV 10.4 fL (8.0-11.0); Platelet Count 218 10^3/uL (130-400); RBC 4.64 10^6/uL (4.36-5.78); RDW 13.9 % (11.8-14.1); RDW-SD 48.5 fL; WBC 15.28 10^3/uL (4.4-10.8)
[2024-04-08 06:59] LABS: ALT 29 U/L (16-63); AST 17 U/L (15-37); Albumin 2.9 g/dL (3.4-5.0); Alkaline Phosphatase 82 U/L (46-116); Anion Gap 8.4 mmol/L (3-11); BUN 13 mg/dL (7-18); Bilirubin, Total 0.73 mg/dL (0.2-1.0); CO2 23.6 mmol/L (21.0-32.0); CREATININE 0.9 mg/dL (0.70-1.30); Calcium 8.2 mg/dL (8.5-10.1); Chloride 106 mmol/L (98-107); Estimated GFR 91.88 (mL/min/1.73m2); Glucose 116 mg/dL (74-106); Magnesium 1.7 mg/dL (1.8-2.4); Potassium 3.7 mmol/L (3.5-5.1); Sodium 138 mmol/L (136-145); Total Protein 6.2 g/dL (6.4-8.2)
[2024-04-08] MEDS: Fidaxomicin 200 MG TAB PO (08:04)
[2024-04-08 08:06] VITALS: TEMP 37.1
[2024-04-08] MEDS: Normal Saline Flush 10 ML SYR IVP (08:16)
[2024-04-08 10:20] LABS: HCT 44.8 % (40.0-50.0); HGB 15.1 g/dL (13.5-17.5); MCH 31.8 pg (27.0-33.0); MCHC 33.7 % (32.0-36.0); MCV 94 fL (80-95); MPV 10.5 fL (8.0-11.0); Platelet Count 225 10^3/uL (130-400); RBC 4.75 10^6/uL (4.36-5.78); RDW 13.8 % (11.8-14.1); WBC 15.14 10^3/uL (4.4-10.8)
[2024-04-08 11:38] VITALS: BP 115/78; PULSE 78; RESP 18; TEMP 36.5; O2SAT 97
--- NOTE | 2024-04-08 11:49 | RESPIRATORY ---
Patient verbalized he has a history of mild COPD - not oxygen dependant, no home inhaled medications, no exacerbations to note. Pt's lungs sound clear, no wheezes, rhonchi or rales to report. Pt is resting on room air saturating 99%, is not short of breath at rest or during ambulation, and would like his scheduled nebulizers discontinued.
--- NOTE | 2024-04-08 11:49 | W.PM.PROGNOT ---
Date of Service Date of service: 04/08/24 Time of Service: 11:49 Objective Last Vital Signs Temp 36.5 C 04/08/24 11:38 Pulse 78 04/08/24 11:38 Resp 18 04/08/24 11:38 BP 115/78 04/08/24 11:38 Pulse Ox 97 04/08/24 11:38 Laboratory Results - last 24 hr 04/07/24 04/07/24 04/07/24 15:10 17:26 20:11 WBC 15.58 H RBC 5.38 Hgb 17.3 Hct 50.7 H MCV 94 MCH 32.2 MCHC 34.1 RDW 13.7 Plt Count 259 MPV 10.7 Immature Gran % 1.5 Neutrophils % 74.7 Lymphocytes % 12.9 Monocytes % 9.2 Eosinophils % 0.9 Basophils % 0.8 Nucleated RBC % 0.0 Absolute Neutrophils 11.64 H Absolute Lymphocytes 2.01 Absolute Monocytes 1.43 H Absolute Eosinophils 0.14 Absolute Basophils 0.12 PT INR APTT VBG Lactate 1.0 Sodium 138 Potassium 4.0 Chloride 102 Carbon Dioxide 24.9 Anion Gap 11.1 H BUN 25 H Creatinine 1.4 H Est GFR (CKD-EPI 2020) 54.07 Glucose 132 H Calcium 9.5 Magnesium 2.0 Total Bilirubin 0.47 AST 26 ALT 37 Alkaline Phosphatase 96 Total Protein 7.7 Albumin 3.7 Lipase 41 Urine Color Yellow Urine Clarity Sl Cloudy Urine pH 5.0 Ur Specific [place] 1.020 Urine Protein Negative Urine Ketones Negative Urine Blood Trace-lysed H Urine Nitrite Negative Urine Bilirubin Negative Urine Urobilinogen 0.2 Ur Leukocyte Esterase Negative Urine RBC 0-2 Urine WBC 3-5 Ur Epithelial Cells Negative Urine Crystals Negative Urine Bacteria Rare Urine Casts 5-10 Hyaline Urine Mucus Trace Ur Culture Indicated? No Urine Glucose Negative Stl C.difficile Tox PCR Positive A 04/07/24 04/08/24 04/08/24 23:00 01:58 06:04 WBC 15.67 H 17.58 H 15.28 H RBC 4.80 4.81 4.64 Hgb 15.3 D 15.6 14.9 Hct 44.8 45.4 43.8 MCV 93 94 94 MCH 31.9 32.4 32.1 MCHC 34.2 34.4 34.0 RDW 13.8 13.6 13.9 Plt Count 227 220 218 MPV 10.4 10.0 10.4 Immature Gran % Neutrophils % Lymphocytes % Monocytes % Eosinophils % Basophils % Nucleated RBC % Absolute Neutrophils Absolute Lymphocytes Absolute Monocytes Absolute Eosinophils Absolute Basophils PT 11.1 INR 1.1 APTT 25.0 VBG Lactate 1.5 H Sodium 138 Potassium 3.7 Chloride 106 Carbon Dioxide 23.6 Anion Gap 8.4 BUN 13 Creatinine 0.9 Est GFR (CKD-EPI 2020) 91.88 Glucose 116 H Calcium 8.2 L Magnesium 1.7 L Total Bilirubin 0.73 AST 17 ALT 29 Alkaline Phosphatase 82 Total Protein 6.2 L Albumin 2.9 L Lipase Urine Color Urine Clarity Urine pH Ur Specific [place] Urine Protein Urine Ketones Urine Blood Urine Nitrite Urine Bilirubin Urine Urobilinogen Ur Leukocyte Esterase Urine RBC Urine WBC Ur Epithelial Cells Urine Crystals Urine Bacteria Urine Casts Urine Mucus Ur Culture Indicated? Urine Glucose Stl C.difficile Tox PCR 04/08/24 10:03 WBC 15.14 H RBC 4.75 Hgb 15.1 Hct 44.8 MCV 94 MCH 31.8 MCHC 33.7 RDW 13.8 Plt Count 225 MPV 10.5 Immature Gran % Neutrophils % Lymphocytes % Monocytes % Eosinophils % Basophils % Nucleated RBC % Absolute Neutrophils Absolute Lymphocytes Absolute Monocytes Absolute Eosinophils Absolute Basophils PT INR APTT VBG Lactate Sodium Potassium Chloride Carbon Dioxide Anion Gap BUN Creatinine Est GFR (CKD-EPI 2020) Glucose Calcium Magnesium Total Bilirubin AST ALT Alkaline Phosphatase Total Protein Albumin Lipase Urine Color Urine Clarity Urine pH Ur Specific [place] Urine Protein Urine Ketones Urine Blood Urine Nitrite Urine Bilirubin Urine Urobilinogen Ur Leukocyte Esterase Urine RBC Urine WBC Ur Epithelial Cells Urine Crystals Urine Bacteria Urine Casts Urine Mucus Ur Culture Indicated? Urine Glucose Stl C.difficile Tox PCR PAWSS Have you Been Recently Intoxicated or Drunk Within the Last 30 days?: No Have you Ever Experienced Previous Episodes of Alcohol Withdrawal?: No Have you ever Experienced Withdrawal Seizures?: No Have you ever Experienced Delirium Tremens(DT)s?: No Have you ever undergone Alcohol Rehabilitation Treatment (i.e, inpt ot outpatient treatment programs)?: No Have you ever Experienced Blackouts?: No Have you ever Combined Alcohol with other Downers within the last 90 days?: No Have you ever Combined Alcohol with any other Substance of Abuse during the last 90 days?: No Positive Blood Alcohol level on Presentation? [PCS.BAL]: No Evidence of Increased Autonomic Activity (i.e. HR>120, tremor, sweating, agitation, nausea)?: No Result: 0
--- NOTE | 2024-04-08 13:25 | PGE_ITS ---
Date of Service Date of service: 04/08/24 Time of Service: 13: Assessment and Plan Assessment and plan (1) Acute GI bleeding: Start date: 04/08/24 Start time: Status: Acute Assessment and plan: All in all patient doing well currently. He is tolerating clear liquids, his abdomen is soft, he denies any further rectal bleeding. His C. difficile antigen test was positive and I think from surgical standpoint he should be able to advance his diet and discharge him home to complete his course of oral antibiotic. I told him he will need to follow-up with his primary care physician and arrange for an outpatient colonoscopy within the next few weeks. This was also discussed with the admitting hospitalist. (2) C. difficile colitis: Start date: 04/08/24 Start time: Status: Acute Assessment and plan: See the above dictation. Subjective Subjective Patient reports: no new complaints, feels better, tolerating liquids well and bowel movement Exam Narrative Exam Narrative: Patient is awake and alert, all vitals stable. Patient sitting by the bedside. He looks comfortable. He is tolerating liquids. He had 1 bowel movement which had no blood in it. There was no diarrhea but regular stool. Abdomen is soft nontender to palpation. No abdominal masses no tenderness no hernias. Bowel sounds present. GI Inspection: normal to inspection and distended (minimal) Palpation: soft Auscultation: normal bowel sounds Objective Last Vital Signs Temp 97.7 F 04/08/24 11:38 Pulse 78 04/08/24 11:38 Resp 18 04/08/24 11:38 BP 115/78 04/08/24 11:38 Pulse Ox 97 04/08/24 11:38 Laboratory Results - last 24 hr 04/07/24 04/07/24 04/07/24 15:10 17:26 20:11 WBC 15.58 H RBC 5.38 Hgb 17.3 Hct 50.7 H MCV 94 MCH 32.2 MCHC 34.1 RDW 13.7 Plt Count 259 MPV 10.7 Immature Gran % 1.5 Neutrophils % 74.7 Lymphocytes % 12.9 Monocytes % 9.2 Eosinophils % 0.9 Basophils % 0.8 Nucleated RBC % 0.0 Absolute Neutrophils 11.64 H Absolute Lymphocytes 2.01 Absolute Monocytes 1.43 H Absolute Eosinophils 0.14 Absolute Basophils 0.12 PT INR APTT VBG Lactate 1.0 Sodium 138 Potassium 4.0 Chloride 102 Carbon Dioxide 24.9 Anion Gap 11.1 H BUN 25 H Creatinine 1.4 H Est GFR (CKD-EPI 2020) 54.07 Glucose 132 H Calcium 9.5 Magnesium 2.0 Total Bilirubin 0.47 AST 26 ALT 37 Alkaline Phosphatase 96 Total Protein 7.7 Albumin 3.7 Lipase 41 Urine Color Yellow Urine Clarity Sl Cloudy Urine pH 5.0 Ur Specific [place] 1.020 Urine Protein Negative Urine Ketones Negative Urine Blood Trace-lysed H Urine Nitrite Negative Urine Bilirubin Negative Urine Urobilinogen 0.2 Ur Leukocyte Esterase Negative Urine RBC 0-2 Urine WBC 3-5 Ur Epithelial Cells Negative Urine Crystals Negative Urine Bacteria Rare Urine Casts 5-10 Hyaline Urine Mucus Trace Ur Culture Indicated? No Urine Glucose Negative Stl C.difficile Tox PCR Positive A 04/07/24 04/08/24 04/08/24 23:00 01:58 06:04 WBC 15.67 H 17.58 H 15.28 H RBC 4.80 4.81 4.64 Hgb 15.3 D 15.6 14.9 Hct 44.8 45.4 43.8 MCV 93 94 94 MCH 31.9 32.4 32.1 MCHC 34.2 34.4 34.0 RDW 13.8 13.6 13.9 Plt Count 227 220 218 MPV 10.4 10.0 10.4 Immature Gran % Neutrophils % Lymphocytes % Monocytes % Eosinophils % Basophils % Nucleated RBC % Absolute Neutrophils Absolute Lymphocytes Absolute Monocytes Absolute Eosinophils Absolute Basophils PT 11.1 INR 1.1 APTT 25.0 VBG Lactate 1.5 H Sodium 138 Potassium 3.7 Chloride 106 Carbon Dioxide 23.6 Anion Gap 8.4 BUN 13 Creatinine 0.9 Est GFR (CKD-EPI 2020) 91.88 Glucose 116 H Calcium 8.2 L Magnesium 1.7 L Total Bilirubin 0.73 AST 17 ALT 29 Alkaline Phosphatase 82 Total Protein 6.2 L Albumin 2.9 L Lipase Urine Color Urine Clarity Urine pH Ur Specific [place] Urine Protein Urine Ketones Urine Blood Urine Nitrite Urine Bilirubin Urine Urobilinogen Ur Leukocyte Esterase Urine RBC Urine WBC Ur Epithelial Cells Urine Crystals Urine Bacteria Urine Casts Urine Mucus Ur Culture Indicated? Urine Glucose Stl C.difficile Tox PCR 04/08/24 10:03 WBC 15.14 H RBC 4.75 Hgb 15.1 Hct 44.8 MCV 94 MCH 31.8 MCHC 33.7 RDW 13.8 Plt Count 225 MPV 10.5 Immature Gran % Neutrophils % Lymphocytes % Monocytes % Eosinophils % Basophils % Nucleated RBC % Absolute Neutrophils Absolute Lymphocytes Absolute Monocytes Absolute Eosinophils Absolute Basophils PT INR APTT VBG Lactate Sodium Potassium Chloride Carbon Dioxide Anion Gap BUN Creatinine Est GFR (CKD-EPI 2020) Glucose Calcium Magnesium Total Bilirubin AST ALT Alkaline Phosphatase Total Protein Albumin Lipase Urine Color Urine Clarity Urine pH Ur Specific [place] Urine Protein Urine Ketones Urine Blood Urine Nitrite Urine Bilirubin Urine Urobilinogen Ur Leukocyte Esterase Urine RBC Urine WBC Ur Epithelial Cells Urine Crystals Urine Bacteria Urine Casts Urine Mucus Ur Culture Indicated? Urine Glucose Stl C.difficile Tox PCR PAWSS Have you Been Recently Intoxicated or Drunk Within the Last 30 days?: No Have you Ever Experienced Previous Episodes of Alcohol Withdrawal?: No Have you ever Experienced Withdrawal Seizures?: No Have you ever Experienced Delirium Tremens(DT)s?: No Have you ever undergone Alcohol Rehabilitation Treatment (i.e, inpt ot outpatie nt treatment programs)?: No Have you ever Experienced Blackouts?: No Have you ever Combined Alcohol with other Downers within the last 90 days?: No Have you ever Combined Alcohol with any other Substance of Abuse during the last 90 days?: No Positive Blood Alcohol level on Presentation? [PCS.BAL]: No Evidence of Increased Autonomic Activity (i.e. HR>120, tremor, sweating, agitation, nausea)?: No Result: 0 Time Spent with Patient Time Spent with Patient: 25-34 minutes Time was spent: obtaining and/or reviewing separately otained hiistory, indepentently interpreting results and counseling the patient
--- NOTE | 2024-04-08 13:33 | W.BRIEF ---
Date of service: 04/08/24 Time of Service: 11:30 Brief Operative Note Anesthesia Anesthesia Type: General LMA/ETT 5ml Specimen/Culture Specimen(s): appendix., peritoneal fluid for gram stain and cultures Culture(s): appendix Complications Complications: None
--- NOTE | 2024-04-08 16:00 | DSE_ITS ---
Date of service: 04/08/24 Time of Service: 16:01 DS: Diagnosis Discharge Diagnosis (1) Acute GI bleeding: Status: Acute (2) C. difficile colitis: Status: Acute Discharge Plan Disposition Patient Disposition: Home Condition: Improving Discharge Details Reason For Visit: C. difficile colitis, SUSANNE mild, Hematochezia Admit Date/Time: 04/07/24 21:52 Admit Provider: Karthik Vargas Attending Provider: Karthik Vargas Primary Care Provider: Leonid Hernandez Hospital Course Hospital Course: This 68-year-old male patient with a past medical history of tobacco abuse, atherosclerosis presented to the ED at [facility] on 04/07/2024 for complaints of new onset diarrhea after several days of left lower quadrant abdominal pain and discomfort and recent treatment with oral antibiotics for pneumonia. Labs in the ED were remarkable for leukocytosis, slight dehydration with elevated creatinine from baseline and elevated BUN. Anion gap was also elevated but the patient was not acidotic he was slightly hypoglycemic with a history of hypoglycemia but not treated for diabetes. Initially he received Dificid 200 mg oral in the ED with concerns for C. difficile colitis. There was no consideration for Flagyl although he does have diverticulosis and presented with left lower quadrant abdominal pain. The patient reported hematochezia but only when wiping, no profuse bleeding. CT showed no evidence of diverticulitis but severe arterial sclerotic changes with 4.3 cm infrarenal at the abdominal aortic aneurysm and bilateral iliac artery aneurysms. The hospitalist accepted the patient to the medical surgical floor for evaluation and management of clostridioides difficile infection, hematochezia, and acute kidney injury. During the stay the patient continued to receive the fidaxomicin treatment which will have to continue upon discharge for total of 10 days. Recommendation made to the patient to take probiotics and a prescription was sent. SUSANNE as resolved and no further diarrhea or hematochezia was observed. The patient is normotensive and afebrile without any further abdominal pain. Her surgical consult was completed and Dr. Pederson does not recommend any emergent interventions at this time. The patient will be discharged home today and will have to follow-up with his primary care practitioner once is treatment is completed. Discussion with the patient included our tobacco abuse can immune defenses at the respiratory system level and at this time the patient do not consider tobacco cessation. 2 doses of fidaxomicin will be provided by [facility] pharmacy to the patient as his primary pharmacy will only have the drug ready tomorrow. Discussed with Dr. Ochoa Home Meds and New Rx's Prescriptions: New Dificid 200 mg Tablet 200 mg PO BID Qty: 19 0RF Rx Instructions: Complete a total of 10 days of treatment Bio-K plus 50 billion cell capsule,delayed release(DR/EC) 1 cap PO DAILY Qty: 10 0RF Continued Incruse Ellipta 62.5 mcg/actuation blister with device 1 inh IH DAILY nitroglycerin [Nitrostat] 0.4 MG tablet, sublingual 0.4 mg Buccal ONCE PRN Qty: 30 clopidogrel [Plavix] 75 MG tablet 75 mg PO DAILY 90 Days Qty: 90 0RF lisinopril 10 MG tablet 10 mg PO DAILY 90 Days Qty: 90 3RF clotrimazole-betamethasone 1-0.05 % cream 1 applic topical BID escitalopram oxalate 5 mg tablet 5 mg PO DAILY Hold Instructions: Pt Stopped/Never Started omeprazole 20 mg capsule,delayed release(DR/EC) 20 mg PO DAILY Hold Instructions: Pt Stopped/Never Started cyclobenzaprine 10 mg tablet 10 mg PO BID PRN albuterol sulfate [ProAir HFA] 90 mcg/actuation HFA aerosol inhaler 2 puff inhalation Q6H PRN Repatha SureClick 140 mg/mL pen injector 140 mg SUBCUT .biweekly Discharge Instructions Stand Alone Forms: Nursing Discharge Form Referrals: Leonid Hernandez PA [Primary Care Provider] - 04/11/24 4:00 pm Activity:: Activity as Tolerated Equipment/Supplies:: No Equipment Needed Diet:: As Tolerated Discharge Orders Discharge Orders: Discharge Order (Routine); Ordered 04/08/24 Ordered By: Fifi Fallon DS: Summary Time Spent with Patient providing and/or coordinating discharge services: Greater than 30 minutes Status at Discharge Functional status at discharge: independent ambulation Overall status at discharge: patient is progressing back to baseline Mental Status: mental status grossly normal Speech and Movement: speech and movement normal Mood: congruent mood Affect: normal affect Quality:SDOH Health Related Social Needs: No Data to Display Exam Narrative Exam Narrative: Constitutional The patient is sitting in chair well groomed without acute distress Neuro:alert and oriented to self, person, place, time and situation. Resp: Clear lung bilaterally Cardio: regular rhythm, S1, S2, no murmur GI: Abdomen is not distended, soft and non tender, bowel sounds are present : Negative Costovertebral angle tenderness, no bladder distension Back/spine/Pelvis: No back tenderness, normal alignment Integumentary: No skin lesions or rash Extremities: strength 5/5 to bilateral lower and upper extremities Psych: RASS 0, congruent mood and normal affect. Psych Mental Status: mental status grossly normal Speech and Movement: speech and movement normal Mood: congruent mood Affect: normal affect DS: Data Vitals/I&O Vitals and I&O: Vital Signs Temperature 36.5 C 04/08/24 11:38 Temperature Source Temporal Artery Scan 04/08/24 11:38 Pulse 78 04/08/24 11:38 Pulse Rhythm Irregular 04/08/24 15:47 Pulse 85 04/07/24 17:02 Respiratory Rate 18 04/08/24 11:38 Respiratory Effort Normal 04/08/24 15:47 Respiratory Depth Normal 04/08/24 15:47 Respiratory Pattern Normal 04/08/24 15:47 Blood Pressure 115/78 04/08/24 11:38 Blood Pressure Mean 93 04/07/24 18:44 Blood Pressure Position Sitting 04/07/24 23:06 Pulse Oximetry 97 04/08/24 11:38 Oxygen Delivery Method Room Air 04/08/24 11:38 Oxygen Flow Rate 0 04/08/24 11:38 Pain Level 0 04/08/24 11:38 Intake & Output 04/07/24 04/08/24 04/08/24 23:59 11:59 23:59 Intake Total 1500 / 1500 10 / 570 560 / 570 Balance 1500 / 1500 10 / 570 560 / 570 Weight 77.111 kg 76.799 kg Intake: IV 1500 / 1500 Oral 550 / 550 Other: Urine Appearance Clear Clear Stool Size Small Stool Characteristics Soft Bloody Emesis Description None Data Completed and Pending Labs on day of discharge: Labs from last 24 hours 04/08/24 04/08/24 04/08/24 10:03 06:04 01:58 WBC 15.14 H 15.28 H 17.58 H RBC 4.75 4.64 4.81 Hgb 15.1 14.9 15.6 Hct 44.8 43.8 45.4 MCV 94 94 94 MCH 31.8 32.1 32.4 MCHC 33.7 34.0 34.4 RDW 13.8 13.9 13.6 Plt Count 225 218 220 MPV 10.5 10.4 10.0 Immature Gran % Neutrophils % Lymphocytes % Monocytes % Eosinophils % Basophils % Nucleated RBC % Absolute Neutrophils Absolute Lymphocytes Absolute Monocytes Absolute Eosinophils Absolute Basophils PT INR APTT VBG Lactate Sodium 138 Potassium 3.7 Chloride 106 Carbon Dioxide 23.6 Anion Gap 8.4 BUN 13 Creatinine 0.9 Est GFR (CKD-EPI 2020) 91.88 Glucose 116 H Calcium 8.2 L Magnesium 1.7 L Total Bilirubin 0.73 AST 17 ALT 29 Alkaline Phosphatase 82 Total Protein 6.2 L Albumin 2.9 L Lipase Urine Color Urine Clarity Urine pH Ur Specific [place] Urine Protein Urine Ketones Urine Blood Urine Nitrite Urine Bilirubin Urine Urobilinogen Ur Leukocyte Esterase Urine RBC Urine WBC Ur Epithelial Cells Urine Crystals Urine Bacteria Urine Casts Urine Mucus Ur Culture Indicated? Urine Glucose Stool Campylobacter PCR Stl C.difficile Tox PCR Stool Salmonella PCR Stool Shigella PCR Shiga Toxin (PCR) 04/07/24 04/07/24 04/07/24 23:00 20:11 17:26 WBC 15.67 H RBC 4.80 Hgb 15.3 D Hct 44.8 MCV 93 MCH 31.9 MCHC 34.2 RDW 13.8 Plt Count 227 MPV 10.4 Immature Gran % Neutrophils % Lymphocytes % Monocytes % Eosinophils % Basophils % Nucleated RBC % Absolute Neutrophils Absolute Lymphocytes Absolute Monocytes Absolute Eosinophils Absolute Basophils PT 11.1 INR 1.1 APTT 25.0 VBG Lactate 1.5 H 1.0 Sodium Potassium Chloride Carbon Dioxide Anion Gap BUN Creatinine Est GFR (CKD-EPI 2020) Glucose Calcium Magnesium Total Bilirubin AST ALT Alkaline Phosphatase Total Protein Albumin Lipase Urine Color Urine Clarity Urine pH Ur Specific [place] Urine Protein Urine Ketones Urine Blood Urine Nitrite Urine Bilirubin Urine Urobilinogen Ur Leukocyte Esterase Urine RBC Urine WBC Ur Epithelial Cells Urine Crystals Urine Bacteria Urine Casts Urine Mucus Ur Culture Indicated? Urine Glucose Stool Campylobacter PCR Pending Stl C.difficile Tox PCR Positive A Stool Salmonella PCR Pending Stool Shigella PCR Pending Shiga Toxin (PCR) Pending 04/07/24 15:10 WBC 15.58 H RBC 5.38 Hgb 17.3 Hct 50.7 H MCV 94 MCH 32.2 MCHC 34.1 RDW 13.7 Plt Count 259 MPV 10.7 Immature Gran % 1.5 Neutrophils % 74.7 Lymphocytes % 12.9 Monocytes % 9.2 Eosinophils % 0.9 Basophils % 0.8 Nucleated RBC % 0.0 Absolute Neutrophils 11.64 H Absolute Lymphocytes 2.01 Absolute Monocytes 1.43 H Absolute Eosinophils 0.14 Absolute Basophils 0.12 PT INR APTT VBG Lactate Sodium 138 Potassium 4.0 Chloride 102 Carbon Dioxide 24.9 Anion Gap 11.1 H BUN 25 H Creatinine 1.4 H Est GFR (CKD-EPI 2020) 54.07 Glucose 132 H Calcium 9.5 Magnesium 2.0 Total Bilirubin 0.47 AST 26 ALT 37 Alkaline Phosphatase 96 Total Protein 7.7 Albumin 3.7 Lipase 41 Urine Color Yellow Urine Clarity Sl Cloudy Urine pH 5.0 Ur Specific [place] 1.020 Urine Protein Negative Urine Ketones Negative Urine Blood Trace-lysed H Urine Nitrite Negative Urine Bilirubin Negative Urine Urobilinogen 0.2 Ur Leukocyte Esterase Negative Urine RBC 0-2 Urine WBC 3-5 Ur Epithelial Cells Negative Urine Crystals Negative Urine Bacteria Rare Urine Casts 5-10 Hyaline Urine Mucus Trace Ur Culture Indicated? No Urine Glucose Negative Stool Campylobacter PCR Stl C.difficile Tox PCR Stool Salmonella PCR Stool Shigella PCR Shiga Toxin (PCR) PFSH All Active Problems (Updated 04/08/24 @ 03:48 by Karthik Vargas) Acute GI bleeding (Acute) SUSANEN (acute kidney injury) (Acute) Hematochezia (Acute) SUSANNE (acute kidney injury) (Acute) Hyperglycemia without ketosis (Chronic) Diverticulosis (Chronic) Left lower quadrant abdominal pain (Acute) C. difficile colitis (Acute) Ischemic colitis (Acute) COPD (chronic obstructive pulmonary disease) (Chronic) Lipoma (Acute) Chest pain (Acute) Aneurysm of infrarenal abdominal aorta (Chronic 05/07/18) Ragsdale's esophagus (Acute 02/28/13) - February 2013 REPEAT GASTROSCOPY 2016 Coronary atherosclerosis of [place] coronary vessel (Acute 12/20/12) [place] x 2/ stent in 2012: 11/1999: inf. myocardial infarction- tx: lytic therapy 11/2011: myocardial infarction - tx:drug eluting stent Coronary artery disease involving [place] coronary artery of [place] heart without angina pectoris (Chronic 05/07/18) H/O TIA (transient ischemic attack) and stroke (Acute 05/07/18) Ischemic cardiomyopathy (Chronic 05/07/18) Peripheral vascular disease (Chronic 05/07/18) Polyp of colon (Acute 12/20/12) tuular adenoma x2: February 2013/ Ventricular tachycardia, nonsustained (Acute 05/07/18) Medical History GERD (gastroesophageal reflux disease) PVD (peripheral vascular disease) Cardiomyopathy Spinal compression fracture TIA (transient ischemic attack) FEROZ (obstructive sleep apnea) Low back pain Depression Statin intolerance (05/07/18) Irritable colon HTN (hypertension) Prediabetes Hyperlipidemia Surgical History Repair of umbilical hernia EGD - IV Sedation (06/27/16) DR. PINEDO; RAGSDALE'S ESOPHAGUS Coronary Stent Colonoscopy - IV Sedation (06/27/16) DR. PINEDO Colonoscopy - IV Sedation (02/25/13) DR. PINEDO Social History Smoking/Tobacco Use Status: Current every day Tobacco Type: cigarettes Smoking risk assessment performed?: Yes Alcohol Intake: current Alcohol Intake frequency: 0-2 drinks per day Alcohol type: wine and hard liquor Drug use: Never Substance use type: does not use Housing: house Do you feel safe at home: Yes Do you feel safe in your relationship?: Yes Time Spent with Patient Time Spent with Patient: 70-84 minutes4 Time was spent: preparing to see the patient(eg.review tests), obtaining and/or reviewing separately otained hiistory, ordering medications,tests, procedures, referring, communicating with other health doggy daycare activities director, indepentently interpreting results, counseling the patient and care coordination
[2024-04-08 23:48] LABS: Campylobacter PCR Negative (Negative); Salmonella PCR Negative (Negative); Shiga Toxin PCR Negative (Negative); Shigella/Enteroinvasive Ecoli Negative (Negative)
== END 2024-04-08 16:46 | disposition home or self-care (01) ==
LOC: ER 22:22 → MS 23:03
PROVIDERS: Admitting Provider Family Medicine; Emergency Provider Physician Assistant; PCP Physician Assistant Medical; Visit Provider Family Medicine
DX: A04.72 Enterocolitis due to Clostridium difficile, not specified as recurrent; K55.9 Vascular disorder of intestine, unspecified; E86.0 Dehydration; K57.31 Diverticulosis of large intestine without perforation or abscess with bleeding; N17.9 Acute kidney failure, unspecified; I25.5 Ischemic cardiomyopathy; I25.10 Atherosclerotic heart disease of native coronary artery without angina pectoris; J41.0 Simple chronic bronchitis; I71.43 Infrarenal abdominal aortic aneurysm, without rupture; K21.9 Gastro-esophageal reflux disease without esophagitis; D72.829 Elevated white blood cell count, unspecified; I25.2 Old myocardial infarction; Z95.5 Presence of coronary angioplasty implant and graft; Z86.73 Personal history of transient ischemic attack (TIA), and cerebral infarction without residual deficits; I73.9 Peripheral vascular disease, unspecified; Z79.899 Other long term (current) drug therapy; R73.9 Hyperglycemia, unspecified
CPT/HCPCS: 00123; 36415; 80053; 83690; 85027; 87493; 87505; 96360; 96361; 99222; 99231; 99285; 74177; 81003; 81015; 83605; 83735; 85025; 85610; 85730; 99223; 99239; G0378; J1815; J3490; J7620

== ENCOUNTER 2024-10-05 13:23 | Emergency (ER) | payer MEDICARE, OTHER, SELFPAY ==
[2024-10-05] VITALS (9 sets, daily range): BP systolic 140–185; BP diastolic 56–105; PULSE 40–99; RESP 14–19; TEMP 36.6; O2SAT 83–98
--- NOTE | 2024-10-05 13:30 | RT.EKG_ITS ---
APPROVED REPORT Exam: Resting ECG Reason for Exam: Patient Location: E HR:80 bpm ECG Measurements Heart Rate 80 AXIS TN 151 P 50 QRSd 114 QRS -69 QT 392 T 80 QTc 456 Conclusion Sinus rhythm...normal P axis, V-rate 60- 99 Multiple ventricular premature complexes...V complexes w/ short R-R intervls Left atrial enlargement...P, P'>60mS, <-0.15mV V1 Inferior infarct, old...Q >35mS, II III aVF
--- NOTE | 2024-10-05 13:45 | DI.CT_ITS ---
Exam(s) CT HEAD WO EXAM: CT HEAD WO CLINICAL HISTORY: headaches. TECHNIQUE: Imaging Protocol: Axial computed tomography images with coronal and sagittal reformatted images were created and reviewed COMPARISON: CT HEAD WITHOUT CONTRAST from 10/21/2017 FINDINGS: There are no skull fractures. There is no fluid in the visualized paranasal sinuses. There is no evidence of intracranial hemorrhage, intra or extra-axial. There is, however, lacunar in farct on the left side involving the basal ganglia, anterior limb of left internal capsule, and left caudate nucleus. This is nonhemorrhagic and was not evident on CT scan of 2018. No other areas of obvious infarction. Ventricles exhibit normal size and there is no blood within th e ventricular system nor within the basal cisterns. No shift of midline structures. IMPRESSION: There is a nonhemorrhagic lacunar infarct in the left basal ganglia, anterior limb left internal caps ule and left caudate nucleus, not previously present in 2018. Appearance is probably not acute. If clinically indicated follow-up MRI with diffusion imaging can be performed for added sensitivity a nd specificity. Findings are recommendations discussed by myself with ER physician 10/05/2024 at 2:45 p.m. RADIATION DOSE DELIVERED: 911.31mGy.cm Total DLP DATA REPOSITORY: All CT scans at this facility are submitted to the National Radiology Data Registry (NRDR) Dose Index Registry (DIR) with the [employer] ([employer]). RADIATION OPTIMIZATION: All CT scans at this facility use at least one of these dose optimization te chniques: automated exposure control; mA and/or kV adjustment per patient size (includes targeted exa ms where dose is matched to clinical indication); or iterative reconstruction.
--- NOTE | 2024-10-05 13:45 | DI.RAD_ITS ---
Exam(s) XR CHEST 2V PA LATERAL EXAM: XR CHEST 2V PA LATERAL CLINICAL HISTORY: chest pain. TECHNIQUE: 2D digital imaging was performed. COMPARISON: CR,XR XR CHEST 2V PA LATERAL from 12/04/[address] ABDOMEN PELVIS W from 04/07/2024 FINDINGS: 2 views: Heart size is upper normal. The mediastinum is not widened. Tortuous descending thoracic aorta is u nchanged. Left lung is clear. There is platelike atelectasis in the right lower lobe posterior basal segment, best seen on the frontal view. Again noted is vertebroplasty cement in the L1 vertebral body. Appearance is similar to previous. N o new compression fractures identified in the thoracic vertebrae. No significant disc space narrowin g. IMPRESSION: There is subsegmental platelike atelectasis in the posterior basal segment of the right lower lobe. No other focal pulmonary findings and no pleural effusions.Other findings as above. DATA REPOSITORY: RADIATION DOSE DELIVERED:
--- NOTE | 2024-10-05 13:53 | W.ED.GENAD ---
Discharge Plan Disposition Patient Disposition: Home Condition: Stable Discharge Details Clinical Impression: Generalized headaches, Belching, Burning in the chest Primary Care Provider: Leonid Hernandez ED Provider: Bryson Menendez Home Meds and New Rx's Prescriptions: Continued Incruse Ellipta 62.5 mcg/actuation blister with device 1 inh IH DAILY nitroglycerin [Nitrostat] 0.4 MG tablet, sublingual 0.4 mg Buccal ONCE PRN Qty: 30 clopidogrel [Plavix] 75 MG tablet 75 mg PO DAILY 90 Days Qty: 90 0RF lisinopril 10 MG tablet 10 mg PO DAILY 90 Days Qty: 90 3RF clotrimazole-betamethasone 1-0.05 % cream 1 applic topical BID omeprazole 20 mg capsule,delayed release(DR/EC) 20 mg PO DAILY cyclobenzaprine 10 mg tablet 10 mg PO BID PRN albuterol sulfate [ProAir HFA] 90 mcg/actuation HFA aerosol inhaler 2 puff inhalation Q6H PRN Repatha SureClick 140 mg/mL pen injector 140 mg SUBCUT .biweekly Discharge Instructions Additional Instructions: Your imaging and lab work did not show any concerning acute findings. You have signs of an old stroke in your head. There was no signs of a heart attack or any cardiac issues today You can take aegc-uqn-[id number] medications such as Mylanta and Gas-X, follow dosing instructions on the packaging Follow-up with your primary care provider within 1 to 2 weeks especially if symptoms continue If you feel more ill or have severe worsening symptoms or new symptoms such as difficulty breathing return to the emergency department for reevaluation. HPI General Mode of arrival: ambulatory. Date/Time Provider Initiated Documentation: 10/05/24 13:25. Limitations to Documentation: no limitations. Information obtained by: patient. History of Present Illness 69 year old M presents to the emergency department with the chief complaint of belching, chest burning, headaches, described as mild, Quality is described as burning, and is localized to the chest. Patient started experiencing this day(s) (3) and it has been constant. No relieving factors improve symptom(s), No exacerbating factors reported . Patient notes denies fever/chills, nausea/vomiting and shortness of breath. Patient did receive the following treatments prior to arrival, none Related Data Home Medications ?Medication ?Instructions ?Recorded ?Confirmed nitroglycerin 0.4 mg sublingual 0.4 mg buccal ONCE PRN #30 tab-caps 11/02/13 10/05/24 tablet (Nitrostat) clopidogrel 75 mg tablet (Plavix) 75 mg PO DAILY 90 days #90 tab-caps 01/07/18 10/05/24 lisinopril 10 mg tablet 10 mg PO DAILY 90 days #90 tabs 01/07/18 10/05/24 umeclidinium 62.5 mcg/actuation 1 inh inhalation DAILY 04/20/19 10/05/24 blister powder for inhalation (Incruse Ellipta) albuterol sulfate 90 mcg/actuation 2 puff inhalation Q6H PRN 10/22/21 10/05/24 aerosol inhaler (ProAir HFA) clotrimazole-betamethasone 1 1 applic topical BID 10/22/21 10/05/24 %-0.05 % topical cream cyclobenzaprine 10 mg tablet 10 mg PO BID PRN 10/22/21 10/05/24 omeprazole 20 mg capsule,delayed 20 mg PO DAILY 10/22/21 10/05/24 release evolocumab 140 mg/mL subcutaneous 140 mg subcut .biweekly 04/07/24 10/05/24 pen injector (Mayela Lovell) Previous Rx's ?Medication ?Instructions ?Recorded clopidogrel 75 mg tablet (Plavix) 75 mg PO DAILY 90 days #90 tab-caps 01/07/18 lisinopril 10 mg tablet 10 mg PO DAILY 90 days #90 tabs 01/07/18 Allergies Allergy/AdvReac Type Severity Reaction Status Date / Time bupropion Allergy Intermediate HIVES Verified 10/05/24 13:44 Beta-Blockers Allergy Unknown PER MD Verified 10/05/24 13:44 (Beta-Adrenergic Bloc Ipwbhkq-PLJ-DzC Reductase AdvReac Unknown GI UPSET Verified 10/05/24 13:44 Inhibitor (Wpzpsqk-Ntx-Jvp Reductase Inhibitor) General Stated Complaint: Chest Pain NIC: 3 Review of Systems All systems reviewed & are unremarkable except as noted in HPI and below Constitutional Constitutional: Denies chills, Denies fever(s), Reports headache(s) and Denies weakness ENT Ears, Nose, Mouth, and Throat: Reports headache(s) Cardiovascular Cardiovascular: Denies chest pain and Denies dyspnea Respiratory Respiratory: Denies cough and Denies dyspnea Gastrointestinal Gastrointestinal: Denies abdominal pain, Reports heartburn, Denies nausea and Denies vomiting Musculoskeletal Musculoskeletal: Denies joint swelling Neurologic Neurologic: Reports headache(s) and Denies weakness Exam Const General: no acute distress Orientation: alert HENMD Head: normal to inspection Ears: external ears normal General nose exam: external nose normal Mouth: moist mucous membranes Eyes General: appearance normal, both eyes and all related structures Neck Neck: normal visual inspection Resp Effort & Inspection: normal respiratory effort and able to speak in complete sentences Auscultation: clear to auscultation bilaterally Cardio Jugular venous pressure: no JVD Rate: regular rate GI Palpation: soft and nontender Skin General skin exam: no rashes or lesions noted Neuro General: patient alert and patient oriented x3 Extrem General: normal to inspection Psych Mental Status: mental status grossly normal Course Vital Signs Vital signs: Vital Signs Temperature 36.6 C 10/05/24 13:28 Pulse 61 10/05/24 13:28 Respiratory Rate 16 10/05/24 13:28 Blood Pressure 169/61 H 10/05/24 13:28 Pulse Oximetry 98 10/05/24 13:28 Temperature 36.6 C 10/05/24 13:28 Temperature Source Oral 10/05/24 13:28 Pulse 61 10/05/24 13:28 Respiratory Rate 16 10/05/24 13:28 Blood Pressure 169/61 H 10/05/24 13:28 Blood Pressure Position Sitting 10/05/24 13:28 Pulse Oximetry 98 10/05/24 13:28 Oxygen Delivery Method Room Air 10/05/24 13:28 Oxygen Flow Rate 0 10/05/24 13:28 Pain Level 0 10/05/24 13:28 Medical Decision Making 69-year-old male with a history of coronary artery disease status post prior stenting, TIAs, who comes in with 3 days of belching and chest burning sensation especially with eating. Denies any severe abdominal pain chest pain, no chest pressure, no fevers or difficulty breathing. He also notes that he has intermittent frontal headaches. He denies any pain over the temporal arteries, no severe headaches. No fevers or chills or neck stiffness. He is well-appearing on exam ambulating without visible distress. He has clear lung sounds, no JVD, electrolyte or calf tenderness, soft nontender abdomen. No focal neurological deficits. He has no temporal artery tenderness. Cranial nerves II through XII are intact. His headaches seem consistent with tension headache but given his age will obtain CT imaging to evaluate for hemorrhage. He has no thunderclap sounding headache so doubt subarachnoid hemorrhage and he has no meningismus or fever so doubt HYDRAULIC TESTER infection. His belching and chest burning sensation does not seem consistent with ACS but given his history we will check troponins and also CBC and CMP and lipase. He has no abdominal tenderness so do not feel any imaging for his abdomen is indicated as he is unlikely to have surgical pathology such as bowel obstruction or cholecystitis. He has no tearing back pain and equal peripheral pulses so doubt aortic dissection and he has no tachycardia or evidence of DVT on exam so doubt PE. Patient stable and feels better, labs unremarkable thus far, CT head shows basal ganglia infarct of unclear chronicity, will obtain MRI to determine if this is an acute or subacute finding. Chest x-ray shows no acute findings. MRI confirms this is not a new stroke. Patient has not tolerated statins in the past which is why is not on any. Delta troponin negative and he feels better. He is stable for discharge advised to follow-up with his PCP for continued chronic management of his issues and return precautions given Differential Diagnosis Differential Diagnosis: Acid reflux, food sensitivity, ACS, tension headaches Medical Records Medical records reviewed: Yes I reviewed the patient's medical records. Imaging Data Radiologic Study: Attestation: I personally reviewed and interpreted this imaging study as follows: Imaging: CT Scan Radiologist's impression: IMPRESSION: There is a nonhemorrhagic lacunar infarct in the left basal ganglia, anterior limb left internal capsule and left caudate nucleus, not previously present in 2018. Appearance is probably not acute. If clinically indicated follow-up MRI with diffusion imaging can be performed for added sensitivity and specificity. Radiologic Study #2: Attestation: I personally reviewed and interpreted this imaging study as follows: Imaging: MRI Radiologist's impression: IMPRESSION: Left-side lacunar infarct as described above corresponding to what is seen on CT scan earlier today. There is no restricted diffusion to suggest that this is an acute ischemic event. Mild fluid noted in left maxillary sinu Lab Data Lab results reviewed: Yes I reviewed the patient's lab results. ECG Data Attestation: I personally reviewed and interpreted this ECG (s) as follows: Prior ECG tracings: available for review Interpretation: Sinus rhythm, rate of 80, SC 151, PVCs, no STEMI Quality:SDOH Health Related Social Needs: No Data to Display PFSH All Active Problems (Updated 10/05/24 @ 16:01 by Bryson Menendez MD) Burning in the chest (Acute) Belching (Acute) Generalized headaches (Acute) SUSANNE (acute kidney injury) (Acute) SUSANNE (acute kidney injury) (Acute) C. difficile colitis (Acute) Lipoma (Acute) Chest pain (Acute) Ragsdale's esophagus (Acute 02/28/13) - February 2013 REPEAT GASTROSCOPY 2016 Coronary atherosclerosis of [place] coronary vessel (Acute 12/20/12) [place] x 2/ stent in 2012: 11/1999: inf. myocardial infarction- tx: lytic therapy 11/2011: myocardial infarction - tx:drug eluting stent H/O TIA (transient ischemic attack) and stroke (Acute 05/07/18) Peripheral vascular disease (Chronic 05/07/18) Polyp of colon (Acute 12/20/12) tuular adenoma x2: February 2013/ Ventricular tachycardia, nonsustained (Acute 05/07/18) Medical History GERD (gastroesophageal reflux disease) PVD (peripheral vascular disease) Cardiomyopathy Spinal compression fracture TIA (transient ischemic attack) FEROZ (obstructive sleep apnea) Low back pain Depression Statin intolerance (05/07/18) Irritable colon HTN (hypertension) Prediabetes Hyperlipidemia Surgical History Repair of umbilical hernia EGD - IV Sedation (06/27/16) DR. PINEDO; RAGSDALE'S ESOPHAGUS Coronary Stent Colonoscopy - IV Sedation (06/27/16) DR. PINEDO Colonoscopy - IV Sedation (02/25/13) DR. PINEDO Social History Smoking/Tobacco Use Status: Current every day Tobacco Type: cigarettes Smoking risk assessment performed?: Yes Alcohol Intake: current Alcohol Intake frequency: 0-2 drinks per day Alcohol type: wine and hard liquor Drug use: Never Substance use type: does not use Housing: house Do you feel safe at home: Yes Do you feel safe in your relationship?: Yes
[2024-10-05 14:17] LABS: BE (Venous) 1 mmol/L (-2-3); HCO3 (Venous) 26 mmol/L (23-28); O2 Sat (Venous) 64 %; TCO2 (Venous) 23 mmol/L (24-29); pCO2 (Venous) 46 mmHg (41-51); pH (Venous) 7.37 (7.31-7.41); pO2 (Venous) 33 mmHg
[2024-10-05 14:18] LABS: Abs Immature Grans 0.11 10^3/uL (0.0-0.06); Absolute Eosinophil Count 0.27 10^3/uL (0.0-0.7); Absolute Monocyte Count 1.22 10^3/uL (0.1-0.8); Absolute Neutrophil Count 6.36 10^3/uL (1.2-6.7); Basophils % 0.9 %; Eosinophils % 2.4 %; HCT 51.9 % (40.0-50.0); HGB 17.9 g/dL (13.5-17.5); Lymphocytes % 27.8 %; MCH 32.7 pg (27.0-33.0); MCHC 34.5 % (32.0-36.0); MCV 95 fL (80-95); MPV 10.3 fL (8.0-11.0); Monocytes % 10.9 %; Platelet Count 249 10^3/uL (130-400); RBC 5.48 10^6/uL (4.36-5.78); RDW 13.5 % (11.8-14.1); RDW-SD 47.8 fL; WBC 11.16 10^3/uL (4.4-10.8)
[2024-10-05] MEDS: Mylanta Suspension 30 ML CUP PO (14:23)
[2024-10-05 14:37] LABS: ALT 35 U/L (16-63); AST 23 U/L (15-37); Albumin 3.7 g/dL (3.4-5.0); Alkaline Phosphatase 101 U/L (46-116); Anion Gap 9.5 mmol/L (3-11); BUN 15 mg/dL (7-18); Bilirubin, Total 0.35 mg/dL (0.2-1.0); CO2 26.5 mmol/L (21.0-32.0); CREATININE 0.9 mg/dL (0.70-1.30); Calcium 8.8 mg/dL (8.5-10.1); Chloride 103 mmol/L (98-107); Estimated GFR 91.31 (mL/min/1.73m2); Glucose 120 mg/dL (74-106); Lipase 38 U/L (<78); Magnesium 2.1 mg/dL (1.8-2.4); Potassium 4.5 mmol/L (3.5-5.1); Sodium 139 mmol/L (136-145); Troponin I 23 ng/L (<or=76)
[2024-10-05 14:47] LABS: INR 1.1 (0.9-1.1); PTT Activated 27.3 sec (23.6-32.8); Prothrombin Time 10.7 sec (9.1-11.1)
--- NOTE | 2024-10-05 15:50 | DI.MRI_ITS ---
Exam(s) MR BRAIN WO EXAM: MR BRAIN WO CLINICAL HISTORY: ct scan with infarction, ?acute TECHNIQUE: Multiplanar multisequence MRI of the brain was performed. COMPARISON: CT scan earlier same date as well as CT scan 2018 reviewed FINDINGS: CEREBRAL PARENCHYMA: There is no evidence of intracranial hemorrhage, mass effect, or shift of midline structures. There are no extra-axial fluid collections. Ventricles are not enlarged or shifted. There is no significant focal signal abnormality in the cerebellar hemispheres nor within the adama, m idbrain, and thalami. Nonhemorrhagic lacunar infarct in the left basal ganglia/anterior limb left internal capsule/left cau date nucleus is noted, seen on today's CT scan. This does not exhibit evidence of hemorrhage nor res tricted diffusion. There are few tiny nonspecific foci of Karen in supra ventricular white matter signal abnormality elena uring up to 2 mm. PITUITARY GLAND: No mass nor parasellar abnormality. No obvious abnormality in the cavernous sinuses. FLOW VOIDS: The expected flow void are noted. No evidence of obvious aneurysm nor obvious vascular ma lformation. PARANASAL SINUSES: Some mild mucosal thickening fluid noted in left maxillary sinus. Remainder of th e paranasal sinuses are clear and there also no mastoid effusions. ORBITS: No obvious findings. IMPRESSION: Left-side lacunar infarct as described above corresponding to what is seen on CT scan earlier today. There is no restricted diffusion to suggest that this is an acute ischemic event. Mild fluid noted in left maxillary sinus. Report called by myself to ER physician 10/05/2024 at 3:45 p.m. DATA REPOSITORY:
[2024-10-05 15:53] LABS: Troponin I 27 ng/L (<or=76)
== END 2024-10-05 16:16 | disposition home or self-care (01) ==
PROVIDERS: Emergency Provider Emergency Medicine; PCP Physician Assistant Medical
DX: R14.2 Eructation (principal); R51.9 Headache, unspecified; K21.9 Gastro-esophageal reflux disease without esophagitis; J44.9 Chronic obstructive pulmonary disease, unspecified; I25.10 Atherosclerotic heart disease of native coronary artery without angina pectoris; I10 Essential (primary) hypertension; E78.5 Hyperlipidemia, unspecified; Z86.73 Personal history of transient ischemic attack (TIA), and cerebral infarction without residual deficits; Z95.5 Presence of coronary angioplasty implant and graft; Z79.02 Long term (current) use of antithrombotics/antiplatelets
CPT/HCPCS: 80053; 82805; 83690; 93005; 99285; 70450; 70551; 71046; 83735; 84484; 85025; 85610; 85730; 93010

== ENCOUNTER 2024-12-01 08:10 | Outpatient (RCR) | payer MEDICARE, OTHER, SELFPAY ==
--- NOTE | 2024-12-06 13:52 | W.HOLTRPT ---
Date of service: 12/06/24 Time of Service: 13:52 Holter Monitor Report Referring Provider:: Aretha May Indications:: Palpitations Holter Monitor Note: This is a 48-hour Holter monitor. Predominant rhythm was sinus with an average heart rate of 84. Minimum was 44, maximum 109. There were rare atrial premature beats. There were frequent ventricular ectopic beats, comprising 30% of total. There were multiple brief runs of nonsustained ventricular tachycardia. These were generally 45 beats in duration. There was 1 run that lasted 11 beats. There was no atrial fibrillation, no high-grade AV block, no pauses greater than 3 seconds. Symptoms were reported which had no correlation to any dysrhythmia
== END 2024-12-16 23:59 | disposition home or self-care (01) ==
LOC: CARDOPNVT 08:10
PROVIDERS: PCP Physician Assistant Medical; Visit Provider Internal Medicine Cardiovascular Disease
DX: R00.2 Palpitations (principal)
CPT/HCPCS: 93227; 93225; 93226

== ENCOUNTER 2024-12-29 01:15 | Outpatient (CLI) | payer MEDICARE, OTHER, SELFPAY ==
--- NOTE | 2024-12-29 | DI.US_ITS ---
Exam(s) US CAROTID EXAM: US CAROTID CLINICAL HISTORY: R09.89 Other specified symptoms signs involving circulatory respiratory. TECHNIQUE: Ultrasound carotids performed using grayscale, color-flow, and spectral Doppler imaging. COMPARISON: US US CAROTID from 05/15/2022 FINDINGS: RIGHT CAROTID ARTERY: Plaque: Moderate calcific plaque is seen in the common carotid artery, the carotid bulb and proximal internal carotid artery. Velocity elevation: None. LEFT CAROTID ARTERY: Plaque: Moderate calcific plaque is seen in the common carotid artery, the carotid bulb in the origin s of both the internal and external carotid arteries. Velocity elevation: None. VERTEBRAL ARTERIES: Antegrade flow. Measurements: R Bulb: 30cm/s PS / 11.2cm/s ED R CCA: 80.2cm/s PS / 16.7cm/s ED R ECA: 74.7cm/s PS / 12.6cm/s ED R ICA Prox: 40.3cm/s PS / 14cm/s ED R ICA Mid: 42.2cm/s PS / 17.8cm/s ED R ICA Distal: 34.5cm/s PS /13.9cm/s ED R Vert: 27.9cm/s PS / 12cm/s ED R SVR: 0.5 R DVR: 1.1 L Bulb: 71cm/s PS / 16.2cm/s ED L CCA: 63.4cm/s PS / 15.4cm/s ED L ECA: 78.3cm/s PS / 8.9cm/s ED L ICA Prox: 49.1cm/s PS / 13cm/s ED L ICA Mid: 51.9cm/s PS / 10.5cm/s ED L ICA Distal: 84.3cm/s PS / 27.1cm/s ED L Vert: 88.6cm/s PS / 23.6cm/s ED L SVR: 1.3 L DVR: 1.8 IMPRESSION: 1. No evidence for hemodynamically significant carotid stenosis. 2. Moderate calcific plaque bilaterally. Criteria for Carotid Stenosis: Normal: ICA PSV <125 cm/s no plaque or intimal thickening is visible. <50% stenosis: ICA PSV <125 cm/s and plaque or intimal thickening is visible. 50-69% stenosis: ICA PSV is 125-250 cm/s and plaque is visible. >70% stenosis to near occlusion: ICA PSV >250 cm/s with visible plaque and luminal narrowing. DATA REPOSITORY:
--- NOTE | 2024-12-29 08:31 | DI.CTLCSR_ITS ---
Exam(s) CT CHEST LUNG CANCER SCREEN EXAM: CT CHEST LUNG CANCER SCREEN CLINICAL HISTORY: SMOKER, SCREENING FOR LUNG CA,F17.210 TECHNIQUE: Imaging Protocol: Axial computed tomography images with coronal and sagittal reformatted images were created and reviewed. Lung Computer Aided Detection (CAD) was utilized. COMPARISON: CT CT CHEST PE CTA from 12/04/[address] CHEST LUNG CANCER SCREEN from 12/30/[address] ABDOMEN PELVIS W from 04/07/2024 FINDINGS: Tracheobronchial tree: Patent where visualized. No bronchiectasis. Pulmonary parenchyma: No consolidation or dominant measurable mass. Mild emphysematous changes are pr esent in the lungs. Lung Nodules: There is a stable 6-7 mm nodule in the right upper lobe (series 2, image 44). There is also again seen a 3-4 mm nodule in the anterior aspect of the right lower lobe (series 2, image 92). This is stable. No new pulmonary nodules are present. Mediastinum and [place]: No dominant adenopathy or fluid collection. The esophagus is unremarkable. Thyroid gland: Unremarkable. Lymph nodes: Unremarkable. Pleura: No effusion or pneumothorax. Heart: Mildly enlarged heart. Three vessel coronary artery calcification is present. No pericardial effusion. Aorta: Thoracic aorta non-dilated.Atherosclerotic calcification is present. Upper abdomen: There are stable bilateral adrenal nodules most consistent with adenomas. Soft Tissues: Unremarkable. Bones: Age-appropriate degenerative changes are seen in the spine. There has been a vertebroplasty s een in an old L1 compression fracture deformity. IMPRESSION: Stable pulmonary nodules. No new pulmonary nodules. Lung RADS Cat 2 - Benign Appearance / Behavior: Nodules with a very low likelihood of becoming a clin ically active cancer due to size or lack of growth Lung-RADS 1.0 CATEGORIES: Category 0 - Prior chest CT exam(s) being located for comparison. Category 1 - Annual screening in 12 months. No nodules or definitely benign nodules. Category 2 - Annual screening in 12 months. Benign appearance. Nodules with low likelihood of becomin g active cancer. Category 3 - 6-month follow-up. Probably benign. Short-term follow-up suggested. Nodules with low lik elihood of becoming active cancer. Category 4A - 3-month follow-up and CT/PET if >8 mm in size. Suspicious finding. Findings which requi re additional testing. Category 4B - Findings which require additional testing and tissue sampling. Suspicious finding. Category 4X - Category 3 or 4 nodules with additional features or imaging findings that increases the suspicion of malignancy. Modifier S- Potentially clinically significant finding. (Non lung cancer) RADIATION DOSE DELIVERED: 32.55mGy.cm Total DLP 32.55mGy.cmTotal DLP DATA REPOSITORY: All CT scans at this facility are submitted to the National Radiology Data Registry (NRDR) Dose Index Registry (DIR) with the [employer] (A[employer]). RADIATION OPTIMIZATION: All CT scans at this facility use at least one of these dose optimization te chniques: automated exposure control; mA and/or kV adjustment per patient size (includes targeted exa ms where dose is matched to clinical indication); or iterative reconstruction.
== END 2024-12-29 01:35 ==
LOC: DI 01:15
PROVIDERS: PCP Physician Assistant Medical; Visit Provider Physician Assistant Medical
DX: R91.1 Solitary pulmonary nodule (principal); F17.210 Nicotine dependence, cigarettes, uncomplicated; Z12.2 Encounter for screening for malignant neoplasm of respiratory organs
CPT/HCPCS: 71271; 93880

== ENCOUNTER 2024-12-30 01:30 | Emergency (ER) | payer MEDICARE, OTHER, SELFPAY ==
[2024-12-30] VITALS (42 sets, daily range): BP systolic 110–165; BP diastolic 58–128; PULSE 45–117; RESP 15–36; TEMP 36.6–38.4; O2SAT 87–98
--- NOTE | 2024-12-30 01:15 | RT.EKG_ITS ---
APPROVED REPORT Exam: Resting ECG Reason for Exam: abd pain Patient Location: E HR:105 bpm ECG Measurements Heart Rate 105 AXIS LA 150 P 66 QRSd 120 QRS -85 QT 388 T 56 QTc 509 Conclusion Sinus tachycardia...rate> 99 Multiform ventricular premature complexes...short R-R, variable morphology Probable left atrial enlargement...P >50mS, <-0.10mV V1 Inferolateral infarct, old...Q >40mS, inf-lat leads Physician: no stemi
[2024-12-30 01:44] LABS: Abs Immature Grans 0.12 10^3/uL (0.0-0.06); Absolute Eosinophil Count 0.06 10^3/uL (0.0-0.7); Absolute Monocyte Count 1.18 10^3/uL (0.1-0.8); Basophils % 0.4 %; Eosinophils % 0.4 %; HCT 50.5 % (40.0-50.0); Immature Grans % 0.8 %; Lymphocytes % 13.8 %; MCH 32.1 pg (27.0-33.0); MCHC 33.7 % (32.0-36.0); MCV 95 fL (80-95); MPV 10.3 fL (8.0-11.0); Monocytes % 7.5 %; Neutrophils % 77.1 %; Platelet Count 247 10^3/uL (130-400); RDW 13.5 % (11.8-14.1); RDW-SD 47.8 fL
--- NOTE | 2024-12-30 01:45 | W.ED.GENAD ---
Discharge Plan Disposition Patient Disposition: Transfer-Acute Inpatient Care Specific Acute Inpt Facility: [facility] Condition: Stable Discharge Details Chief Complaint: Abd Prob Clinical Impression: Ruptured appendicitis Primary Care Provider: Leonid Hernandez ED Provider: Abdullahi Hardwick Home Meds and New Rx's Prescriptions: No Action Incruse Ellipta 62.5 mcg/actuation blister with device 1 inh IH DAILY nitroglycerin [Nitrostat] 0.4 MG tablet, sublingual 0.4 mg Buccal ONCE PRN Qty: 30 clopidogrel [Plavix] 75 MG tablet 75 mg PO DAILY 90 Days Qty: 90 0RF lisinopril 10 MG tablet 10 mg PO DAILY 90 Days Qty: 90 3RF clotrimazole-betamethasone 1-0.05 % cream 1 applic topical BID omeprazole 20 mg capsule,delayed release(DR/EC) 20 mg PO DAILY cyclobenzaprine 10 mg tablet 10 mg PO BID PRN albuterol sulfate [ProAir HFA] 90 mcg/actuation HFA aerosol inhaler 2 puff inhalation Q6H PRN Repatha SureClick 140 mg/mL pen injector 140 mg SUBCUT .biweekly HPI General Date/Time Provider Initiated Documentation: 12/30/24 01:43. HPI Narrative: This is a very pleasant 69-year-old male with a past medical history of SUSANNE, coronary artery disease with stents, previous TIA, currently on Plavix, who presents today for evaluation of right lower quadrant abdominal pain. Symptoms have been present for the last 24 hours, it started as a mild ache is notably worsened over the last 24 hours. He did have an episode of improvement earlier last night, but then tonight at around 11 PM to midnight it became quite severe. He denies vomiting or diarrhea. He denies dysuria. No other complaints at this time. No other modifying factors. Related Data Home Medications ?Medication ?Instructions ?Recorded ?Confirmed nitroglycerin 0.4 mg sublingual 0.4 mg buccal ONCE PRN #30 tab-caps 11/02/13 10/05/24 tablet (Nitrostat) clopidogrel 75 mg tablet (Plavix) 75 mg PO DAILY 90 days #90 tab-caps 01/07/18 10/05/24 lisinopril 10 mg tablet 10 mg PO DAILY 90 days #90 tabs 01/07/18 10/05/24 umeclidinium 62.5 mcg/actuation 1 inh inhalation DAILY 04/20/19 10/05/24 blister powder for inhalation (Incruse Ellipta) albuterol sulfate 90 mcg/actuation 2 puff inhalation Q6H PRN 10/22/21 10/05/24 aerosol inhaler (ProAir HFA) clotrimazole-betamethasone 1 1 applic topical BID 10/22/21 10/05/24 %-0.05 % topical cream cyclobenzaprine 10 mg tablet 10 mg PO BID PRN 10/22/21 10/05/24 omeprazole 20 mg capsule,delayed 20 mg PO DAILY 10/22/21 10/05/24 release evolocumab 140 mg/mL subcutaneous 140 mg subcut .biweekly 04/07/24 10/05/24 pen injector (Mayela Lovell) Previous Rx's ?Medication ?Instructions ?Recorded clopidogrel 75 mg tablet (Plavix) 75 mg PO DAILY 90 days #90 tab-caps 01/07/18 lisinopril 10 mg tablet 10 mg PO DAILY 90 days #90 tabs 01/07/18 Allergies Allergy/AdvReac Type Severity Reaction Status Date / Time bupropion Allergy Intermediate HIVES Verified 10/05/24 13:44 Beta-Blockers Allergy Unknown PER MD Verified 10/05/24 13:44 (Beta-Adrenergic Bloc Kemrsbb-DOP-PoJ Reductase AdvReac Unknown GI UPSET Verified 10/05/24 13:44 Inhibitor (Hbavfvb-Jug-Aam Reductase Inhibitor) General Stated Complaint: Abd Prob NIC: 3 Exam Narrative Exam Narrative: 1.Const: Well-nourished, Well-developed, appearing stated age 2.Eyes: PERRL, no conjunctival injection, and symmetrical lids. 3.ENT: Atraumatic external nose and ears. Moist MM. Neck: Symmetric, trachea midline, No thyromegaly. 4.CVS: +S1/S2, Peripheral pulses 2+ and equal in all extremities. Brisk capillary refill in all extremities. 5.RESP: Unlabored respiratory effort. Clear to auscultation bilaterally. No wheezes rales or rhonchi 6.GI: Soft, moderate right lower quadrant tenderness. Mild mid abdominal tenderness. No pain in the left lower quadrant. Negative Arcos sign. 7.MSK: Normocephalic/Atraumatic, Extremities w/o deformity or ttp No cyanosis or clubbing, Normal movement of all extremities 8.Skin: Warm, Dry. No rashes or lesions. 9.Neuro: route jumper II-XII grossly intact. Sensation grossly intact, no focal neurologic deficits. 10.Psych: (AAO) x3. Appropriate mood and affect Course Vital Signs Vital signs: Vital Signs Temperature 36.6 C 12/30/24 01:30 Pulse 107 H 12/30/24 01:30 Respiratory Rate 20 12/30/24 01:30 Blood Pressure 136/77 12/30/24 01:30 Pulse Oximetry 93 12/30/24 01:30 Temperature 36.6 C 12/30/24 01:30 Pulse 107 H 12/30/24 01:30 Respiratory Rate 20 12/30/24 01:30 Blood Pressure 136/77 12/30/24 01:30 Pulse Oximetry 93 12/30/24 01:30 Oxygen Delivery Method Room Air 12/30/24 01:30 Oxygen Flow Rate 0 12/30/24 01:30 Medical Decision Making This is a very pleasant 69-year-old male with a past medical history of SUSANNE, coronary artery disease with stents, previous TIA, currently on Plavix, who presents today for evaluation of right lower quadrant abdominal pain. Symptoms have been present for the last 24 hours, it started as a mild ache is notably worsened over the last 24 hours. He did have an episode of improvement earlier last night, but then tonight at around 11 PM to midnight it became quite severe. He denies vomiting or diarrhea. He denies dysuria. No other complaints at this time. No other modifying factors. Exam demonstrates a male patient, in mild to moderate pain, notable right lower quadrant tenderness. No groin tenderness. No pulsatile abdominal mass. Differential includes appendicitis, less likely AAA, less likely diverticulitis. Will treat his pain, evaluate for these etiologies, monitor closely and reassess. Of note patient did have a CT scan of his chest for lung cancer today and this was read as negative. 2:[address] scan was performed, personal review shows evidence of appendicitis with small perforation. Laboratory workup shows elevated white count of 15.7, lactate of 2.3. Additional fluid bolus of 500 cc was given for total of 1 L. Pending formal read from [employer]. Zosyn 4.5 g will be started. 4:30 a.m. We are contacted by [facility], and they confirm appendicitis with small perforation. We will reach out to surgery for surgical management. Patient on reassessment feels much better, pain significantly improved after Zosyn morphine and Dilaudid. 5:[address] Arteaga has agreed on the need for surgery, however patient's ejection fraction appears to be around 25%. We will consult with anesthesia prior to admission. 6:49 AM Anesthesia does request transfer, I do feel that this is reasonable and appropriate. Discussed the case with Dr. Abdullahi Ochoa at [facility], he accepts the patient for transfer. I have extensively reviewed the treatment plan with the patient. I have addressed all patient concerns at this time. I have also discussed the plan with the admitting physician and they agree with the current assessment and plan and have agreed to assume responsibility for the patient. All parties demonstrate verbal understanding and agreement with our assessment and plan at this time. The documentation in this chart was dictated using [employer] dictation software. Please excuse any dictation errors. At time of transfer the patient was reassessed and continued to demonstrate No signs of acute respiratory distress requiring intubation, hemodynamic instability requiring pressor support, or rapidly declining mental status. FINDINGS: Esophagus: Small amount of fluid in the lumen of the distal esophagus compatible with gastroesophageal reflux. Probable small hiatal hernia. Liver: Normal. No mass. Gallbladder and biliary ducts: Normal. No calcified stones. No ductal dilation. Pancreas: Unremarkable. Spleen: Normal. Adrenal glands: 2.2 cm indeterminate isodense left adrenal mass. 1.9 cm indeterminate isodense right adrenal mass. Kidneys and ureters: Left renal cyst. No obstructive uropathy. Stomach and bowel: Colonic diverticulosis. No diverticulitis. No bowel wall thickening or intestinal obstruction. Appendix: Acute appendicitis with small perforation: The appendix is fluid-filled and dilated to 1 cm in caliber with mild diffuse wall thickening and periappendiceal inflammation. Tiny focus of extraluminal gas adjacent to the tip of the inflamed appendix, compatible with perforation. No abscess Intraperitoneal space: Trace volume ascites. Vasculature: 4.1 cm fusiform aneurysmal dilatation of the abdominal aorta. 3.1 cm fusiform aneurysmal dilatation of the left common iliac artery. 3.0 cm fusiform aneurysmal dilatation of the right common iliac artery. No rupture. No acute aortic syndrome. Lymph nodes: Unremarkable. Urinary bladder: Unremarkable as visualized. Reproductive: Unremarkable as visualized. Bones/joints: Unremarkable. No acute fracture. Soft tissues: Left inguinal hernia containing fat only. IMPRESSION: 1. Acute appendicitis with small perforation: The appendix is fluid-filled and dilated to 1 cm in caliber with mild diffuse wall thickening and periappendiceal inflammation. Tiny focus of extraluminal gas adjacent to the tip of the inflamed appendix, compatible with perforation. No abscess. 2. Small amount of fluid in the lumen of the distal esophagus compatible with gastroesophageal reflux. Probable small hiatal hernia. 3. Trace volume ascites. Findings discussed with ABDULLAHI HARDWICK MD at time of interpretation. Thank you for allowing us to participate in the care of your patient. Dictated and Authenticated by: Trey Gabriel MD 12/30/2024 4:22 AM Eastern Time ([place] & [place]) Quality:SDOH Health Related Social Needs: No Data to Display PFSH All Active Problems (Updated 12/30/24 @ 06:50 by Abdullahi aHrdwick DO) Ruptured appendicitis (Acute) SUSANNE (acute kidney injury) (Acute) SUSANNE (acute kidney injury) (Acute) C. difficile colitis (Acute) Lipoma (Acute) Chest pain (Acute) Ragsdale's esophagus (Acute 02/28/13) - February 2013 REPEAT GASTROSCOPY 2016 Coronary atherosclerosis of [place] coronary vessel (Acute 12/20/12) [place] x 2/ stent in 2012: 11/1999: inf. myocardial infarction- tx: lytic therapy 11/2011: myocardial infarction - tx:drug eluting stent H/O TIA (transient ischemic attack) and stroke (Acute 05/07/18) Peripheral vascular disease (Chronic 05/07/18) Polyp of colon (Acute 12/20/12) tuular adenoma x2: February 2013/ Ventricular tachycardia, nonsustained (Acute 05/07/18) Medical History GERD (gastroesophageal reflux disease) PVD (peripheral vascular disease) Cardiomyopathy Spinal compression fracture TIA (transient ischemic attack) FEROZ (obstructive sleep apnea) Low back pain Depression Statin intolerance (05/07/18) Irritable colon HTN (hypertension) Prediabetes Hyperlipidemia Surgical History Repair of umbilical hernia EGD - IV Sedation (06/27/16) DR. PINEDO; RAGSDALE'S ESOPHAGUS Coronary Stent Colonoscopy - IV Sedation (06/27/16) DR. PINEDO Colonoscopy - IV Sedation (02/25/13) DR. PINEDO Social History Smoking/Tobacco Use Status: Current every day Tobacco Type: cigarettes Smoking risk assessment performed?: Yes Alcohol Intake: current Alcohol Intake frequency: 0-2 drinks per day Alcohol type: wine and hard liquor Drug use: Never Substance use type: does not use Housing: house Do you feel safe at home: Yes Do you feel safe in your relationship?: Yes POCUS Exam (ED) Limited Cardiac Exam DATE OF EXAM: 12/30/24 TIME OF EXAM: 05:56 PROVIDER THAT PERFORMED THE STUDY: Abdullahi Hardwick IS THIS A REPEAT EXAM DURING THIS ENCOUNTER: no REASON FOR EXAM: Congestive heart failure VISUALIZED STRUCTURES: Left atrium, Left ventricle and Interventricular septum VIEW OBTAINED: Parasternal long-axis PERTINENT FINDINGS/IMPRESSION: LV dysfunction :severe Exam complete
[2024-12-30] MEDS: MORPHine 4 MG/ML SYR IVP ×2 (01:46→05:56)
[2024-12-30 01:47] LABS: Absolute Basophil Count 0.06 10^3/uL (0.0-0.2); Absolute Lymphocyte Count 2.17 10^3/uL (1.2-3.4)
[2024-12-30 01:48] LABS: Lactate 2.3 mmol/L (<or=2.0)
[2024-12-30] MEDS: Ondansetron 4 MG/2 ML VIAL IVP (01:50)
[2024-12-30] MEDS: Normal Saline 500 ML IV (01:50)
[2024-12-30 02:01] LABS: ALT 33 U/L (16-63); AST 17 U/L (15-37); Albumin 3.5 g/dL (3.4-5.0); Alkaline Phosphatase 93 U/L (46-116); Anion Gap 9.3 mmol/L (3-11); BUN 13 mg/dL (7-18); Bilirubin, Total 1.1 mg/dL (0.2-1.0); CO2 28.7 mmol/L (21.0-32.0); CREATININE 1.3 mg/dL (0.70-1.30); Calcium 9.3 mg/dL (8.5-10.1); Chloride 101 mmol/L (98-107); Estimated GFR 58.73 (mL/min/1.73m2); Glucose 208 mg/dL (74-106); Potassium 4.3 mmol/L (3.5-5.1); Sodium 139 mmol/L (136-145); Total Protein 7.8 g/dL (6.4-8.2)
--- NOTE | 2024-12-30 02:39 | DI.CT_ITS ---
Exam(s) CT ABDOMEN PELVIS W EXAM: CT ABDOMEN PELVIS W CLINICAL HISTORY: rlq pain, eval for appe TECHNIQUE: Imaging Protocol: Axial computed tomography images with coronal and sagittal reformatted images were created and reviewed. CONTRAST MATERIAL: Intravenous: Omnipaque 350 Contrast volume:75 mL Oral: No COMPARISON: CT CT CHEST PE CTA from 12/04/[address] ABDOMEN PELVIS W from 04/07/[address] CHEST LUNG CANCER SCREEN from 12/29/2024 FINDINGS: ABDOMEN: Lung Bases: There is dependent atelectasis in the lung bases. Stable right basilar pulmonary nodule. There is a small amount of fluid seen in the distal esophagus. Liver: Normal density. No measurable mass. Portal, Superior Mesenteric, and Splenic Veins: Unremarkable. Gallbladder and Biliary Tract: No radiodense calculus or dilation. Pancreas: Normal density, no abnormal calcifications or inflammatory process. Spleen: Normal. Adrenals: Stable bilateral adrenal nodules. These likely reflect adenomas. No follow-up is recommen ded. Kidneys: Normal size, contour and axis. There are calcifications seen in the kidneys bilaterally. Th ey may be vascular versus nonobstructing stones. There is a simple left renal cysts. No follow-up i s recommended. Abdominal Aorta: There is a 4.5 x 4.0 cm infrarenal abdominal aortic aneurysm. Previously this measu red 4.3 cm. 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 There is again seen at 3.1 cm right common iliac artery aneurysm. There is a 3.5 cm aneurysm on the left involving the distal common iliac artery and extending into the internal iliac artery. These are stable. 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 Bowel: There is diverticulosis of the colon without evidence of acute diverticulitis. The appendix i s distended measuring 1.1 cm in diameter. There is an enhancing wall. Karen appendiceal inflammation is present. The findings are consistent with an appendicitis. There is no abscess. There is a tin y focus of air adjacent to the tip of the appendix (series 10, image 142). This may be extra luminal suggestive of a perforation. There is a small amount of fluid in the right lower quadrant and the p brian. There is no evidence of bowel obstruction. Peritoneal Cavity: Small amount of free fluid in the right lower quadrant of the abdomen and in the p brian. No focal fluid collection is seen to suggest an abscess. Lymph Nodes: Within normal limits. Bones: Within normal limits for the patient's age. There is again seen a vertebral plasty of L1. Soft Tissues: There are bilateral fat containing inguinal hernias. PELVIS: Bladder: Symmetric distention, no gross wall thickening. Reproductive Organs: The prostate gland is enlarged. Lymph Nodes: Within normal limits. Bones: Within normal limits for the patient's age. IMPRESSION: Findings of an acute appendicitis. No abscess is identified. There is a tiny focus of air adjacent to the tip of the appendix (series 10, image 142). This may represent extra luminal air suggestive o f a perforation. RADIATION DOSE DELIVERED: 416.74mGy.cm Total DLP DATA REPOSITORY: All CT scans at this facility are submitted to the National Radiology Data Registry (NRDR) Dose Index Registry (DIR) with the [employer] (ACR). RADIATION OPTIMIZATION: All CT scans at this facility use at least one of these dose optimization te chniques: automated exposure control; mA and/or kV adjustment per patient size (includes targeted exa ms where dose is matched to clinical indication); or iterative reconstruction.
[2024-12-30] MEDS: Omnipaque 350 MG/ML 100 ML BTL 75 ML IJ (02:40)
[2024-12-30] MEDS: Normal Saline - Diluent 50 ML VIAL IJ (02:41)
[2024-12-30] MEDS: PIPERACILLIN/TAZO 4.5 GM in Normal Saline 100 ML IVPB (03:02)
[2024-12-30] MEDS: HYDROmorphone 2 MG/ML SYR 1 MG IVP (03:02)
--- NOTE | 2024-12-30 04:22 | DI.VRAD_ITS ---
PROCEDURE INFORMATION: Exam: CT Abdomen And Pelvis With Contrast Exam date and time: 12/30/2024 2:26 AM Age: 69 years old Clinical indication: Abdominal pain; Localized; Right lower quadrant (rlq); Prior surgery; Surgery date: 6+ months; Surgery type: Hernia repair TECHNIQUE: Imaging protocol: Computed tomography of the abdomen and pelvis with contrast. Radiation optimization: All CT scans at this facility use at least one of these dose optimization techniques: automated exposure control; mA and/or kV adjustment per patient size (includes targeted exams where dose is matched to clinical indication); or iterative reconstruction. COMPARISON: CT ABDOMEN PELVIS W 04/07/2024 4:46 PM FINDINGS: Esophagus: Small amount of fluid in the lumen of the distal esophagus compatible with gastroesophageal reflux. Probable small hiatal hernia. Liver: Normal. No mass. Gallbladder and biliary ducts: Normal. No calcified stones. No ductal dilation. Pancreas: Unremarkable. Spleen: Normal. Adrenal glands: 2.2 cm indeterminate isodense left adrenal mass. 1.9 cm indeterminate isodense right adrenal mass. Kidneys and ureters: Left renal cyst. No obstructive uropathy. Stomach and bowel: Colonic diverticulosis. No diverticulitis. No bowel wall thickening or intestinal obstruction. Appendix: Acute appendicitis with small perforation: The appendix is fluid-filled and dilated to 1 cm in caliber with mild diffuse wall thickening and periappendiceal inflammation. Tiny focus of extraluminal gas adjacent to the tip of the inflamed appendix, compatible with perforation. No abscess. Intraperitoneal space: Trace volume ascites. Vasculature: 4.1 cm fusiform aneurysmal dilatation of the abdominal aorta. 3.1 cm fusiform aneurysmal dilatation of the left common iliac artery. 3.0 cm fusiform aneurysmal dilatation of the right common iliac artery. No rupture. No acute aortic syndrome. Lymph nodes: Unremarkable. Urinary bladder: Unremarkable as visualized. Reproductive: Unremarkable as visualized. Bones/joints: Unremarkable. No acute fracture. Soft tissues: Left inguinal hernia containing fat only. IMPRESSION: 1. Acute appendicitis with small perforation: The appendix is fluid-filled and dilated to 1 cm in caliber with mild diffuse wall thickening and periappendiceal inflammation. Tiny focus of extraluminal gas adjacent to the tip of the inflamed appendix, compatible with perforation. No abscess. 2. Small amount of fluid in the lumen of the distal esophagus compatible with gastroesophageal reflux. Probable small hiatal hernia. 3. Trace volume ascites. Findings discussed with DAGMAR HARDWICK MD at time of interpretation. Dictated and Authenticated by: Trey Gabriel MD. Orderin Lucas Fernando MD
--- NOTE | 2024-12-30 05:35 | W.PM.HP.N ---
Date of service: 12/30/24 Time of Service: 05:35 History of Present Illness History of Present Illness Chief Complaint: abdominal pain PFSH All Active Problems (Updated 11/05/24 @ 00:01 by MELI BARAKAT) SUSANNE (acute kidney injury) (Acute) SUSANNE (acute kidney injury) (Acute) C. difficile colitis (Acute) Lipoma (Acute) Chest pain (Acute) Ragsdale's esophagus (Acute 02/28/13) - February 2013 REPEAT GASTROSCOPY 2016 Coronary atherosclerosis of [place] coronary vessel (Acute 12/20/12) [place] x 2/ stent in 2012: 11/1999: inf. myocardial infarction- tx: lytic therapy 11/2011: myocardial infarction - tx:drug eluting stent H/O TIA (transient ischemic attack) and stroke (Acute 05/07/18) Peripheral vascular disease (Chronic 05/07/18) Polyp of colon (Acute 12/20/12) tuular adenoma x2: February 2013/ Ventricular tachycardia, nonsustained (Acute 05/07/18) Medical History GERD (gastroesophageal reflux disease) PVD (peripheral vascular disease) Cardiomyopathy Spinal compression fracture TIA (transient ischemic attack) FEROZ (obstructive sleep apnea) Low back pain Depression Statin intolerance (05/07/18) Irritable colon HTN (hypertension) Prediabetes Hyperlipidemia Surgical History Repair of umbilical hernia EGD - IV Sedation (06/27/16) DR. PINEDO; RAGSDALE'S ESOPHAGUS Coronary Stent Colonoscopy - IV Sedation (06/27/16) DR. PINEDO Colonoscopy - IV Sedation (02/25/13) DR. PINEDO Social History Smoking/Tobacco Use Status: Current every day Tobacco Type: cigarettes Smoking risk assessment performed?: Yes Alcohol Intake: current Alcohol Intake frequency: 0-2 drinks per day Alcohol type: wine and hard liquor Drug use: Never Substance use type: does not use Housing: house Do you feel safe at home: Yes Do you feel safe in your relationship?: Yes Meds Allergies and Home Medications Allergies Allergy/AdvReac Type Severity Reaction Status Date / Time bupropion Allergy Intermediate HIVES Verified 10/05/24 13:44 Beta-Blockers Allergy Unknown PER MD Verified 10/05/24 13:44 (Beta-Adrenergic Bloc Eqievie-FHL-VkU Reductase AdvReac Unknown GI UPSET Verified 10/05/24 13:44 Inhibitor (Cnxyapm-Lxf-Cic Reductase Inhibitor) Home Medications ?Medication ?Instructions ?Recorded ?Confirmed ?Type nitroglycerin 0.4 mg sublingual 0.4 mg buccal ONCE PRN #30 tab-caps 11/02/13 10/05/24 History tablet (Nitrostat) clopidogrel 75 mg tablet (Plavix) 75 mg PO DAILY 90 days #90 tab-caps 01/07/18 10/05/24 Rx lisinopril 10 mg tablet 10 mg PO DAILY 90 days #90 tabs 01/07/18 10/05/24 Rx umeclidinium 62.5 mcg/actuation 1 inh inhalation DAILY 04/20/19 10/05/24 History blister powder for inhalation (Incruse Ellipta) albuterol sulfate 90 mcg/actuation 2 puff inhalation Q6H PRN 10/22/21 10/05/24 History aerosol inhaler (ProAir HFA) clotrimazole-betamethasone 1 1 applic topical BID 10/22/21 10/05/24 History %-0.05 % topical cream cyclobenzaprine 10 mg tablet 10 mg PO BID PRN 10/22/21 10/05/24 History omeprazole 20 mg capsule,delayed 20 mg PO DAILY 10/22/21 10/05/24 History release evolocumab 140 mg/mL subcutaneous 140 mg subcut .biweekly 04/07/24 10/05/24 History pen injector (Repatha SureClick) Results Labs 12/30/24 01:32 12/30/24 01:32 Labs: Laboratory Results - last 24 hr 12/30/24 01:32 WBC 15.70 H RBC 5.30 Hgb 17.0 Hct 50.5 H MCV 95 MCH 32.1 MCHC 33.7 RDW 13.5 Plt Count 247 MPV 10.3 Immature Gran % 0.8 Neutrophils % 77.1 Lymphocytes % 13.8 Monocytes % 7.5 Eosinophils % 0.4 Basophils % 0.4 Nucleated RBC % 0.0 Absolute Neutrophils 12.10 H Absolute Lymphocytes 2.17 Absolute Monocytes 1.18 H Absolute Eosinophils 0.06 Absolute Basophils 0.06 VBG Lactate 2.3 H* Sodium 139 Potassium 4.3 Chloride 101 Carbon Dioxide 28.7 Anion Gap 9.3 BUN 13 Creatinine 1.3 Est GFR (CKD-EPI 2020) 58.73 Glucose 208 H Calcium 9.3 Total Bilirubin 1.1 H AST 17 ALT 33 Alkaline Phosphatase 93 Total Protein 7.8 Albumin 3.5 Last Vital Signs Temp 97.9 F 12/30/24 01:30 Pulse 56 L 12/30/24 05:10 Resp 18 12/30/24 05:10 BP 135/72 12/30/24 02:16 Pulse Ox 95 12/30/24 05:10
[2024-12-30] MEDS: ACETAMINOPHEN 1,000 MG/100 ML BAG 400 MG (07:25)
== END 2024-12-30 07:37 | disposition short-term general hospital (02) ==
PROVIDERS: Emergency Provider Student in an Organized Health Care Education/Training Program; PCP Physician Assistant Medical
DX: K35.32 Acute appendicitis with perforation, localized peritonitis, and gangrene, without abscess (principal); I25.10 Atherosclerotic heart disease of native coronary artery without angina pectoris; I25.2 Old myocardial infarction; I10 Essential (primary) hypertension; E78.5 Hyperlipidemia, unspecified; J44.9 Chronic obstructive pulmonary disease, unspecified; Z86.73 Personal history of transient ischemic attack (TIA), and cerebral infarction without residual deficits; Z79.02 Long term (current) use of antithrombotics/antiplatelets; F17.210 Nicotine dependence, cigarettes, uncomplicated; Z95.5 Presence of coronary angioplasty implant and graft
CPT/HCPCS: 80053; 93005; 93308; 96361; 96374; 96375; 96376; 99285; 74177; 83605; 85025; 93010; J0131; J1171; J2270; J2405; J2543; J3490

== ENCOUNTER 2025-01-07 07:01 | Emergency (ER) | payer MEDICARE, OTHER, SELFPAY ==
[2025-01-07] VITALS (40 sets, daily range): BP systolic 89–155; BP diastolic 40–91; PULSE 47–96; RESP 13–27; TEMP 34.7; O2SAT 93–99
--- NOTE | 2025-01-07 07:00 | RT.EKG_ITS ---
APPROVED REPORT Exam: Resting ECG Reason for Exam: Chest Pain Patient Location: E HR:62 bpm ECG Measurements Heart Rate 62 AXIS DE 146 P 72 QRSd 125 QRS -58 QT 439 T 81 QTc 448 Conclusion Sinus rhythm...normal P axis, V-rate 60- 99 Ventricular bigeminy...bigeminy string>4 w/ V complexes Probable left atrial enlargement...P >50mS, <-0.10mV V1 Inferolateral infarct, old...Q >40mS, inf-lat leads I have reviewed and interpreted ECG and agree with software generated interpretation.
--- NOTE | 2025-01-07 07:15 | DI.CT_ITS ---
Exam(s) CT THORAX ABD/PEL CTA EXAM: CT THORAX ABD/PEL CTA CLINICAL HISTORY: recent appe, hx AAA, vomiting, diarrhea, abd diste. TECHNIQUE: Imaging Protocol: Axial CT angiography was performed with multi-slice acquisition and m ulti-planar and/or 3D reconstructions. CONTRAST MATERIAL: Intravenous: Omnipaque 350 Contrast volume:100 mL Oral: / no COMPARISON: CT CT CHEST LUNG CANCER SCREEN from 12/29/[address] ABDOMEN PELVIS W from 12/30/2024 FINDINGS: CHEST: Pulmonary Arteries: No evidence of filling defect to suggest pulmonary emboli. Tracheobronchial tree: Patent where visualized. Mediastinum and [place]: No dominant adenopathy or fluid collection. Pulmonary parenchyma: No consolidation or dominant measurable mass. Mild emphysema. Expiratory manley es. Stable nodule right upper lobe. Pleura: No effusion or pneumothorax. Heart: The heart is iqwa-[id number] dilated. [id number] coronary artery calcifications are seen. Aorta: Thoracic aorta non-dilated. Atherosclerotic changes greater in the descending aorta with irr egular mural thrombus. No evidence of dissection. Bones: Normal. Tubes, Catheters, and Lines: VASCULATURE: Abdomen: Aorta: No evidence of occlusion or significant stenosis. No dissection. Stable dilatation of the abd ominal aorta to 4.5 cm with significant mural thrombus. Heavy calcification in the wall of the aorta . Celiac axis: No evidence of occlusion or significant stenosis. mesenteric arteries: Severe narrowing at the origin. Renal Arteries: No evidence of occlusion or significant stenosis. There is a single renal artery per fusing each kidney. Pelvis: Iliac Arteries: Stable bilateral common iliac artery dilatation. No dissection. No evidence of occl usion or significant stenosis. External iliac arteries show moderate atherosclerotic calcification. Internal iliac arteries appear occluded. Common Femoral Arteries: No evidence of occlusion or significant stenosis. ABDOMEN: Liver: Normal density. No measurable mass. Portal, Superior Mesenteric, and Splenic Veins: Unremarkable. Gallbladder and Biliary Tract: No radiodense calculus or dilation. Pancreas: Normal density, no abnormal calcifications or inflammatory process. Spleen: Normal. Adrenals: No masses seen. Kidneys: Normal size, contour and axis. No radiodense stones or obstructive uropathy. No suspicious m asses seen. Left renal cyst again noted. Bowel: Distension of the stomach and proximal small bowel with transition point in the upper pelvis. Thickening of some of small bowel loops in the right lower quadrant. Status post appendectomy. Mil d diverticulosis of the descending and sigmoid colon. Peritoneal Cavity: 4 by 3 centimeter fluid collection anterior to the rectum which may represent an a bscess. Small fluid collection in the right lower quadrant may represent postsurgical fluid. Lymph Nodes: Within normal limits. Bones: L1 vertebroplasty with compression deformity. Degenerative changes. Soft Tissues: Unremarkable. Bladder: Distended. Reproductive Organs: Markedly enlarged prostate. Lymph Nodes: Within normal limits. IMPRESSION: Chest: No acute abnormality. Abdomen pelvis: Small bowel obstruction with transition point in the upper pelvis. Right lower quadr ant inflammatory changes status post appendectomy. Collection anterior to the rectum is suspicious f or an abscess. Small right lower quadrant fluid collection could be postsurgical however abscess not excluded. Stable appearance of aortic and by lateral iliac artery aneurysms. RADIATION DOSE DELIVERED: Total DLP DATA REPOSITORY: All CT scans at this facility are submitted to the National Radiology Data Registry (NRDR) Dose Index Registry (DIR) with the [employer] (ACR). RADIATION OPTIMIZATION: All CT scans at this facility use at least one of these dose optimization te chniques: automated exposure control; mA and/or kV adjustment per patient size (includes targeted exa ms where dose is matched to clinical indication); or iterative reconstruction.
[2025-01-07 07:39] LABS: Lactate 3.8 mmol/L (<or=2.0)
[2025-01-07 07:43] LABS: Abs Immature Grans 0.64 10^3/uL (0.0-0.06); HCT 45.4 % (40.0-50.0); HGB 15.1 g/dL (13.5-17.5); MCH 31.5 pg (27.0-33.0); MCHC 33.3 % (32.0-36.0); MCV 95 fL (80-95); MPV 11.1 fL (8.0-11.0); RBC 4.79 10^6/uL (4.36-5.78); RDW 13.6 % (11.8-14.1); RDW-SD 47.8 fL; WBC 14.85 10^3/uL (4.4-10.8)
--- NOTE | 2025-01-07 07:49 | W.ED.GENAD ---
Discharge Plan Disposition Patient Disposition: Transfer-Acute Inpatient Care Specific Acute Inpt Facility: [facility] Condition: Stable Discharge Details Chief Complaint: Nk/Back Pain Clinical Impression: Sepsis, Intra-abdominal abscess, Complete small bowel obstruction Primary Care Provider: Leonid Hernandez ED Provider: Abdullahi Zavala Home Meds and New Rx's Prescriptions: No Action Incruse Ellipta 62.5 mcg/actuation blister with device 1 inh IH DAILY nitroglycerin [Nitrostat] 0.4 MG tablet, sublingual 0.4 mg Buccal ONCE PRN Qty: 30 clopidogrel [Plavix] 75 MG tablet 75 mg PO DAILY 90 Days Qty: 90 0RF lisinopril 10 MG tablet 10 mg PO DAILY 90 Days Qty: 90 3RF clotrimazole-betamethasone 1-0.05 % cream 1 applic topical BID omeprazole 20 mg capsule,delayed release(DR/EC) 20 mg PO DAILY cyclobenzaprine 10 mg tablet 10 mg PO BID PRN albuterol sulfate [ProAir HFA] 90 mcg/actuation HFA aerosol inhaler 2 puff inhalation Q6H PRN Repatha SureClick 140 mg/mL pen injector 140 mg SUBCUT .biweekly spironolactone 25 mg tablet 25 mg PO DAILY amiodarone 400 mg tablet 400 mg PO DAILY metoprolol succinate 25 mg tablet extended release 24 hr 25 mg PO DAILY valsartan 40 mg tablet 40 mg PO DAILY HPI General Date/Time Provider Initiated Documentation: 01/07/25 07:08. HPI Narrative: This is a very pleasant 69-year-old male with a past medical history of myocardial infarction x 2 with cardiac stents, AAA, COPD, hypertension, high cholesterol, reduced ejection fraction around 20 to 25%, who presents for abdominal pain and distention and low back pain. Patient was seen here on 12/30/2024 by myself. He was diagnosed with an acute appendicitis with small rupture. Ejection fraction was noted to be significantly limited, anesthesia requested transfer to tertiary care facility. He was transferred to [facility], and had lap appendectomy on 12/31/2024. His hospital course was complicated with an aspiration episode during the initial intubation for the surgery. He then developed ileus postoperatively and had emesis and abdominal distention. He was eventually cleared from this and transition back to normal diet, however there was concern for limited oral intake absorption. He ended up having multiple episodes of A-fib with RVR, as well as nonsustained V. tach and PVCs. He notably declined anticoagulation. Eventually he stabilized, and was discharged on aspirin, Plavix, and amiodarone load, with metoprolol continuing postdischarge. The patient was discharged on , 01/05/2025. He stated that was excellent, however on Thursday he began having multiple episodes of diffuse watery diarrhea. He had these multiple times throughout the day. He also developed low back pain. This continued until last night when he had a single episode of vomiting, after which she had no further episodes of diarrhea. He then began having low back pain and abdominal bloating and distention. He presents today for further evaluation. He denies any other complaints currently. He admits to mild achiness in his abdomen but denies any severe tearing or ripping pain. He admits to chills but denies any fever. He denies any dysuria or hematuria. No blood in his stool or vomit. No other complaints at this time. Related Data Home Medications ?Medication ?Instructions ?Recorded ?Confirmed nitroglycerin 0.4 mg sublingual 0.4 mg buccal ONCE PRN #30 tab-caps 11/02/13 01/07/25 tablet (Nitrostat) clopidogrel 75 mg tablet (Plavix) 75 mg PO DAILY 90 days #90 tab-caps 01/07/18 01/07/25 lisinopril 10 mg tablet 10 mg PO DAILY 90 days #90 tabs 01/07/18 01/07/25 umeclidinium 62.5 mcg/actuation 1 inh inhalation DAILY 04/20/19 01/07/25 blister powder for inhalation (Incruse Ellipta) albuterol sulfate 90 mcg/actuation 2 puff inhalation Q6H PRN 10/22/21 01/07/25 aerosol inhaler (ProAir HFA) clotrimazole-betamethasone 1 1 applic topical BID 10/22/21 01/07/25 %-0.05 % topical cream cyclobenzaprine 10 mg tablet 10 mg PO BID PRN 10/22/21 01/07/25 omeprazole 20 mg capsule,delayed 20 mg PO DAILY 10/22/21 01/07/25 release evolocumab 140 mg/mL subcutaneous 140 mg subcut .biweekly 04/07/24 01/07/25 pen injector (Mayela Lovell) amiodarone 400 mg tablet 400 mg PO DAILY 01/07/25 01/07/25 metoprolol succinate 25 mg 25 mg PO DAILY 01/07/25 01/07/25 tablet,extended release 24 hr spironolactone 25 mg tablet 25 mg PO DAILY 01/07/25 01/07/25 valsartan 40 mg tablet 40 mg PO DAILY 01/07/25 01/07/25 Previous Rx's ?Medication ?Instructions ?Recorded clopidogrel 75 mg tablet (Plavix) 75 mg PO DAILY 90 days #90 tab-caps 01/07/18 lisinopril 10 mg tablet 10 mg PO DAILY 90 days #90 tabs 01/07/18 Allergies Allergy/AdvReac Type Severity Reaction Status Date / Time bupropion Allergy Intermediate HIVES Verified 10/05/24 13:44 Beta-Blockers Allergy Unknown PER MD Verified 10/05/24 13:44 (Beta-Adrenergic Bloc [id number] Reductase AdvReac Unknown GI UPSET Verified 10/05/24 13:44 Inhibitor (Gsryven-Irp-Sac Reductase Inhibitor) General Stated Complaint: Nk/Back Pain NIC: 2 Exam Narrative Exam Narrative: 1.Const: Well-nourished, Well-developed, appearing stated age 2.Eyes: PERRL, no conjunctival injection, and symmetrical lids. 3.ENT: Atraumatic external nose and ears. Dry MM. Neck: Symmetric, trachea midline, No thyromegaly. 4.CVS: +S1/S2, Peripheral pulses 2+ and equal in all extremities. Brisk capillary refill in all extremities. 5.RESP: Unlabored respiratory effort. Clear to auscultation bilaterally. No wheezes rales or rhonchi 6.GI: Notable abdominal distention, reduced bowel sounds, minimal pain throughout. Postoperative sites are clean dry and intact. 7.MSK: Normocephalic/Atraumatic, Extremities w/o deformity or ttp No cyanosis or clubbing, Normal movement of all extremities 8.Skin: Warm, Dry. No rashes or lesions. 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 Sensation grossly intact, no focal neurologic deficits. 10.Psych: (AAO) x3. Appropriate mood and affect Course Vital Signs Vital signs: Vital Signs Pulse 72 01/07/25 07:06 Pulse Oximetry 95 01/07/25 07:06 Temperature 34.7 C L 01/07/25 07:13 Temperature Source Oral 01/07/25 07:08 Pulse 57 L 01/07/25 07:13 Pulse 80 01/07/25 07:13 Respiratory Rate 20 01/07/25 07:13 Blood Pressure 110/68 01/07/25 07:13 Blood Pressure Mean 78 01/07/25 07:13 Blood Pressure Position Supine 01/07/25 07:08 Pulse Oximetry 97 01/07/25 07:10 Oxygen Delivery Method Room Air 01/07/25 07:08 Oxygen Flow Rate 0 01/07/25 07:08 Pain Level 9 01/07/25 07:08 Comment 89/63 on L, 119/70 on R 01/07/25 07:08 Comment right arm 01/07/25 07:13 Lab/Test Results Lab/Test Results: 01/07/25 07:23 Blood Blood Culture - Pending 01/07/25 07:23 Blood Blood Culture - Pending Laboratory Tests Range/Units 01/07/25 01/07/25 07:10 07:23 VBG Lactate (<or=2.0) mmol/L 3.8 H* NT-Pro-B Natriuret Pep Cancelled Lipase Cancelled Medical Decision Making This is a very pleasant 69-year-old male with a past medical history of myocardial infarction x 2 with cardiac stents, AAA, COPD, hypertension, high cholesterol, reduced ejection fraction around 20 to 25%, who presents for abdominal pain and distention and low back pain. Patient was seen here on 12/30/2024 by myself. He was diagnosed with an acute appendicitis with small rupture. Ejection fraction was noted to be significantly limited, anesthesia requested transfer to tertiary care facility. He was transferred to [facility], and had lap appendectomy on 12/31/2024. His hospital course was complicated with an aspiration episode during the initial intubation for the surgery. He then developed ileus postoperatively and had emesis and abdominal distention. He was eventually cleared from this and transition back to normal diet, however there was concern for limited oral intake absorption. He ended up having multiple episodes of A-fib with RVR, as well as nonsustained V. tach and PVCs. He notably declined anticoagulation. Eventually he stabilized, and was discharged on aspirin, Plavix, and amiodarone load, with metoprolol continuing postdischarge. The patient was discharged on , 01/05/2025. He stated that was excellent, however on Thursday he began having multiple episodes of diffuse watery diarrhea. He had these multiple times throughout the day. He also developed low back pain. This continued until last night when he had a single episode of vomiting, after which she had no further episodes of diarrhea. He then began having low back pain and abdominal bloating and distention. He presents today for further evaluation. He denies any other complaints currently. He admits to mild achiness in his abdomen but denies any severe tearing or ripping pain. He admits to chills but denies any fever. He denies any dysuria or hematuria. No blood in his stool or vomit. No other complaints at this time. Exam demonstrates a distended, but minimally tender abdomen. Bowel sounds notably reduced. Postoperative sites appear clean dry and intact otherwise. Differential is high for ileus/obstruction, less likely AAA or dissection. He has some mild rhonchi in his lung sounds, doubt new aspiration, but this certainly remains on the differential. Heart rate stable but he is on metoprolol, initial blood pressure low however repeat shortly thereafter is normal. Patient's temperature is also significantly low. Concern for underlying sepsis. Will get CT imaging to further evaluate chest and abdomen pathology, including aortic pathology. Because of his reduced EF we will very gently rehydrate with a 250 cc bolus and then reassess for need for potential 250 more. He certainly does appear dehydrated especially considering his notable diarrhea and vomiting. We will monitor closely and reassess. 10:17 AM Laboratory workup has returned, patient has elevated white count at 14.8, lactate is high at 3.8, 4 of Zosyn was administered. Patient was gently rehydrated with 500 cc, he tolerated this well, no evidence of respiratory distress post fusion. Blood pressure is normalized, heart rate remains normal. Procalcitonin slightly elevated 0.26. CT scan shows evidence of small bowel obstruction, there is also evidence of fluid collection anterior to the rectum suspicious for abscess, small fluid collection in the right lower quadrant as well which may be a small phlegmon or abscess. With the patient's white count and these findings I am concerned for postoperative infection secondary to the nature of his ruptured appendicitis. We did contact [facility] and discussed the case with Dr. Ferrer of surgery. He agrees and recommends transfer. Patient will be transferred ED to ED. Initially we were going to place an NG tube, however we are not able to place at this time secondary to EMS transport limitations. Patient will likely get NG tube subsequently at [facility]. Patient has no vomiting at this time, and is stable for transport. I have extensively reviewed the treatment plan with the patient. I have addressed all patient concerns at this time. I have also discussed the plan with the admitting physician and they agree with the current assessment and plan and have agreed to assume responsibility for the patient. All parties demonstrate verbal understanding and agreement with our assessment and plan at this time. The documentation in this chart was dictated using Manager[employer] dictation software. Please excuse any dictation errors. At time of transfer the patient was reassessed and continued to demonstrate No signs of acute respiratory distress requiring intubation, hemodynamic instability requiring pressor support, or rapidly declining mental status. VASCULATURE: Pulmonary arteries: No pulmonary embolus is appreciated. Aorta: Extensive atherosclerotic changes in the aorta and its branches. 4.4 cm infrarenal abdominal aortic aneurysm again identified, similar prior study. Celiac trunk and mesenteric arteries: Marked narrowing at the origin of the superior mesenteric artery with distal reconstitution. Renal arteries: No occlusion or significant stenosis. Iliac arteries: Iliac arteries: 3.2 cm right common iliac artery aneurysm and 3.4 cm left common iliac artery aneurysm, similar to prior study. Unopacified internal iliac arteries bilaterally, also seen previously. CHEST: Lungs: Emphysematous changes in the lungs. Faint ground-glass opacities in both lungs, likely areas of underinflation. Pleural spaces: No pleural effusion. Heart: No pericardial effusion. Coronary arteries: Coronary artery calcifications. ABDOMEN AND PELVIS: Liver: No focal hepatic lesion seen. Gallbladder and biliary ducts: No calcified stones identified. Pancreas: No evidence for acute pancreatitis. Spleen: No splenomegaly. Adrenal glands: Indeterminate bilateral adrenal nodules. Metastases not excluded. Follow-up as clinically warranted. Kidneys and ureters: Hypodense lesion in the left kidney, statistically likely to represent a cyst but indeterminate on this examination. Cannot exclude hyperdense cyst or solid lesion. Consider nonemergent followup. Stomach and bowel: Gastric distension. Multiple dilated air and fluid-filled small bowel loops are identified and collapsed loops are also seen. Transition point seen in the upper pelvis. Thickening of small bowel loops in the right lower quadrant with adjacent stranding. Colonic diverticula. Areas of apparent mural thickening in the colon commensurate with underdistention. Appendix: Status post recent appendectomy. Intraperitoneal space: Small amount of pelvic fluid. 3.7 x 2.9 cm fluid collection anterior to the rectum suspicious for abscess. 1.1 cm fluid collection in the right lower quadrant adjacent to small bowel loops, may represent postoperative seroma but phlegmon/abscess cannot be excluded. Urinary bladder: Distended urinary bladder. Reproductive: Mildly enlarged prostate. Lymph nodes: Nonspecific mediastinal and mesenteric lymph nodes. Bones/joints: Endplate deformities in the spine appear chronic. Compression deformity at L1 status post vertebroplasty. Soft tissues: No acute abnorm 1. Findings consistent with small bowel obstruction as described above. Thickening of small bowel loops in the right lower quadrant consistent with enteritis and/or postoperative inflammation. Fluid collection anterior to the rectum suspicious for abscess. Small fluid collection in the right lower quadrant, nonspecific but cannot exclude small phlegmon or abscess. 2. Infrarenal abdominal aortic aneurysm and bilateral iliac artery aneurysms again identified. 3. Additional findings as above. Thank you for allowing us to participate in the care of your patient. Dictated and Authenticated by: Gilma Yip MD 01/07/2025 9:24 AM Eastern Time ([place] & [place]) Quality:SDOH Health Related Social Needs: No Data to Display Critical Care Time Critical Care Time Critical Care Time: Yes Total Critical Care Time: 45 Attestation: Upon my evaluation, this patient had a high probability of imminent or life-threatening deterioration, which required my direct attention, intervention, and personal management. I have personally provided 45 minutes of critical care time exclusive of time spent on separately billable procedures. Time includes review of laboratory data, radiology results, discussion with consultants, and monitoring for potential decompensation. Interventions were performed as documented. [facility] All Active Problems (Updated 01/07/25 @ 10:22 by Abdullahi Zavala DO) Complete small bowel obstruction (Acute) Intra-abdominal abscess (Acute) Sepsis (Acute) Ruptured appendicitis (Acute) SUSANNE (acute kidney injury) (Acute) SUSANNE (acute kidney injury) (Acute) C. difficile colitis (Acute) Lipoma (Acute) Chest pain (Acute) Ragsdale's esophagus (Acute 02/28/13) - February 2013 REPEAT GASTROSCOPY 2016 Coronary atherosclerosis of [place] coronary vessel (Acute 12/20/12) [facility] x 2/ stent in 2012: 11/1999: inf. myocardial infarction- tx: lytic therapy 11/2011: myocardial infarction - tx:drug eluting stent H/O TIA (transient ischemic attack) and stroke (Acute 05/07/18) Peripheral vascular disease (Chronic 05/07/18) Polyp of colon (Acute 12/20/12) tuular adenoma x2: February 2013/ Ventricular tachycardia, nonsustained (Acute 05/07/18) Medical History GERD (gastroesophageal reflux disease) PVD (peripheral vascular disease) Cardiomyopathy Spinal compression fracture TIA (transient ischemic attack) FEROZ (obstructive sleep apnea) Low back pain Depression Statin intolerance (05/07/18) Irritable colon HTN (hypertension) Prediabetes Hyperlipidemia Surgical History Repair of umbilical hernia EGD - IV Sedation (06/27/16) DR. PINEDO; RAGSDALE'S ESOPHAGUS Coronary Stent Colonoscopy - IV Sedation (06/27/16) DR. PINEDO Colonoscopy - IV Sedation (02/25/13) DR. PINEDO Social History Smoking/Tobacco Use Status: Current every day Tobacco Type: cigarettes Smoking risk assessment performed?: Yes Alcohol Intake: current Alcohol Intake frequency: 0-2 drinks per day Alcohol type: wine and hard liquor Drug use: Never Substance use type: does not use Housing: house Do you feel safe at home: Yes Do you feel safe in your relationship?: Yes
[2025-01-07 08:03] LABS: INR 1.2 (0.9-1.1); PTT Activated 23.9 sec (20.6-30.2); Prothrombin Time 11.7 sec (9.1-11.1)
[2025-01-07 08:06] LABS: Absolute Eosinophil Count 0.15 10^3/uL (0.0-0.7); Absolute Lymphocyte Count 2.97 10^3/uL (1.2-3.4); Absolute Monocyte Count 1.19 10^3/uL (0.1-0.8); Atypical Lymphocytes % 2 %; Bands % 0 %
[2025-01-07 08:07] LABS: Metamyelocytes % 1; Myelocytes % 1; Other Cells % 0; Platelet Count 391 10^3/uL (130-400); Promyelocytes % 0
[2025-01-07 08:08] LABS: ALT 186 U/L (16-63); AST 88 U/L (15-37); Albumin 2.5 g/dL (3.4-5.0); Alkaline Phosphatase 222 U/L (46-116); BUN 17 mg/dL (7-18); Bilirubin, Total 1.2 mg/dL (0.2-1.0); CREATININE 1.1 mg/dL (0.70-1.30); Calcium 9.3 mg/dL (8.5-10.1); Chloride 103 mmol/L (98-107); Estimated GFR 71.77 (mL/min/1.73m2); Glucose 178 mg/dL (74-106); Lipase 36 U/L (<78); Magnesium 1.8 mg/dL; NT-proBNP 2394 pg/mL (<300); Potassium 3.4 mmol/L (3.5-5.1); Sodium 142 mmol/L (136-145); Total Protein 7.2 g/dL (6.4-8.2); Troponin I 23 ng/L (<or=76)
[2025-01-07 08:23] LABS: Procalcitonin 0.26 ng/mL
[2025-01-07] MEDS: Omnipaque 350 MG/ML 100 ML BTL IJ (08:38)
[2025-01-07 08:45] LABS: Troponin I 22 ng/L (<or=76)
[2025-01-07] MEDS: Normal Saline - Diluent 50 ML VIAL IJ (08:48)
[2025-01-07] MEDS: MORPHine 4 MG/ML SYR IVP ×2 (08:54→10:25)
[2025-01-07] MEDS: Metoclopramide 10 MG/2 ML VIAL IVP (08:54)
--- NOTE | 2025-01-07 09:25 | DI.VRAD_ITS ---
Addendum created by Gilma Yip MD on 01/07/2025 9:26:44 AM EDT: THIS REPORT CONTAINS FINDINGS THAT MAY BE CRITICAL TO PATIENT CARE. The findings were verbally communicated via telephone conference with DAGMAR HARDWICK at 9:26 AM EST on 01/07/2025. The findings were acknowledged and understood. Initial report created on 01/07/2025 9:24:42 AM EDT: PROCEDURE INFORMATION: Exam: CTA Chest With Contrast CTA Abdomen and Pelvis With Contrast Exam date and time: 01/07/2025 8:38 AM Age: 69 years old Clinical indication: Other: Recent appe x1 week ago, HX aaa, vomititng, diarrhea, abd distention TECHNIQUE: Imaging protocol: Computed tomographic angiography of the chest with contrast. Exam focused on the arteries. Computed tomographic angiography of the abdomen and pelvis with contrast. Exam focused on the arteries. 3D rendering (Not supervised by radiologist): MIP and/or 3D reconstructed images were created by the technologist. Radiation optimization: All CT scans at this facility use at least one of these dose optimization techniques: automated exposure control; mA and/or kV adjustment per patient size (includes targeted exams where dose is matched to clinical indication); or iterative reconstruction. Contrast material: OMNI 350; Contrast volume: 100 ml; Contrast route: INTRAVENOUS (IV); COMPARISON: CT CHEST LUNG CANCER SCREEN 12/29/2024 8:24 AM FINDINGS: VASCULATURE: Pulmonary arteries: No pulmonary embolus is appreciated. Aorta: Extensive atherosclerotic changes in the aorta and its branches. 4.4 cm infrarenal abdominal aortic aneurysm again identified, similar prior study. Celiac trunk and mesenteric arteries: Marked narrowing at the origin of the superior mesenteric artery with distal reconstitution. Renal arteries: No occlusion or significant stenosis. Iliac arteries: Iliac arteries: 3.2 cm right common iliac artery aneurysm and 3.4 cm left common iliac artery aneurysm, similar to prior study. Unopacified internal iliac arteries bilaterally, also seen previously. CHEST: Lungs: Emphysematous changes in the lungs. Faint ground-glass opacities in both lungs, likely areas of underinflation. Pleural spaces: No pleural effusion. Heart: No pericardial effusion. Coronary arteries: Coronary artery calcifications. ABDOMEN AND PELVIS: Liver: No focal hepatic lesion seen. Gallbladder and biliary ducts: No calcified stones identified. Pancreas: No evidence for acute pancreatitis. Spleen: No splenomegaly. Adrenal glands: Indeterminate bilateral adrenal nodules. Metastases not excluded. Follow-up as clinically warranted. Kidneys and ureters: Hypodense lesion in the left kidney, statistically likely to represent a cyst but indeterminate on this examination. Cannot exclude hyperdense cyst or solid lesion. Consider nonemergent followup. Stomach and bowel: Gastric distension. Multiple dilated air and fluid-filled small bowel loops are identified and collapsed loops are also seen. Transition point seen in the upper pelvis. Thickening of small bowel loops in the right lower quadrant with adjacent stranding. Colonic diverticula. Areas of apparent mural thickening in the colon commensurate with underdistention. Appendix: Status post recent appendectomy. Intraperitoneal space: Small amount of pelvic fluid. 3.7 x 2.9 cm fluid collection anterior to the rectum suspicious for abscess. 1.1 cm fluid collection in the right lower quadrant adjacent to small bowel loops, may represent postoperative seroma but phlegmon/abscess cannot be excluded. Urinary bladder: Distended urinary bladder. Reproductive: Mildly enlarged prostate. Lymph nodes: Nonspecific mediastinal and mesenteric lymph nodes. Bones/joints: Endplate deformities in the spine appear chronic. Compression deformity at L1 status post vertebroplasty. Soft tissues: No acute abnormality. IMPRESSION: 1. Findings consistent with small bowel obstruction as described above. Thickening of small bowel loops in the right lower quadrant consistent with enteritis and/or postoperative inflammation. Fluid collection anterior to the rectum suspicious for abscess. Small fluid collection in the right lower quadrant, nonspecific but cannot exclude small phlegmon or abscess. 2. Infrarenal abdominal aortic aneurysm and bilateral iliac artery aneurysms again identified. 3. Additional findings as above. Dictated and Authenticated by: Gilma Yip MD. Orderin Lucas Fernando MD
[2025-01-07 09:48] LABS: COVID-19 PCR Negative (Negative); Influenza A PCR Negative (Negative); Influenza B PCR Negative (Negative); RSV PCR Negative (Negative)
[2025-01-07 09:53] LABS: Source Nasopharynx
[2025-01-07] MEDS: PIPERACILLIN/TAZO 4.5 GM in Normal Saline 100 ML IVPB (09:57)
[2025-01-07] MEDS: Normal Saline 500 ML IV (10:00)
[2025-01-07 11:13] LABS: Troponin I 24 ng/L (<or=76)
== END 2025-01-07 10:39 | disposition short-term general hospital (02) ==
PROVIDERS: Emergency Provider Student in an Organized Health Care Education/Training Program; PCP Physician Assistant Medical
DX: K56.691 Other complete intestinal obstruction (principal); T81.43XA Infection following a procedure, organ and space surgical site, initial encounter; T81.44XA Sepsis following a procedure, initial encounter; K56.1 Intussusception; I25.10 Atherosclerotic heart disease of native coronary artery without angina pectoris; J44.9 Chronic obstructive pulmonary disease, unspecified; I10 Essential (primary) hypertension; E78.5 Hyperlipidemia, unspecified; F17.210 Nicotine dependence, cigarettes, uncomplicated; Z79.01 Long term (current) use of anticoagulants; Z86.73 Personal history of transient ischemic attack (TIA), and cerebral infarction without residual deficits; Z95.5 Presence of coronary angioplasty implant and graft
CPT/HCPCS: 36415; 71275; 80053; 83690; 84145; 87040; 87637; 93005; 96374; 96375; 96376; 99285; 74174; 83605; 83735; 83880; 84484; 85025; 85610; 85730; 93010; J2270; J2543; J2765; J3490

== ENCOUNTER 2025-01-15 21:31 | Emergency (ER) | payer MEDICARE, OTHER, SELFPAY ==
[2025-01-15] VITALS (18 sets, daily range): BP systolic 122–150; BP diastolic 61–71; PULSE 54–74; RESP 13–26; O2SAT 94–99
--- NOTE | 2025-01-15 21:30 | RT.EKG_ITS ---
APPROVED REPORT Exam: Resting ECG Reason for Exam: ABD Pain Patient Location: E HR:62 bpm ECG Measurements Heart Rate 62 AXIS NE 195 P 40 QRSd 128 QRS -65 QT 488 T 94 QTc 496 Conclusion Sinus rhythm, rate 62 Borderline QTc prolongation 496ms IVCD Q waves III, aVF, unchanged from priors No STEMI
--- NOTE | 2025-01-15 21:30 | DI.CT_ITS ---
Exam(s) CT ABDOMEN PELVIS W EXAM: CT ABDOMEN PELVIS W CLINICAL HISTORY: recent surgery, N/V/D, SBO vs. Cdiff TECHNIQUE: Imaging Protocol: Axial computed tomography images with coronal and sagittal reformatted images were created and reviewed. CONTRAST MATERIAL: Intravenous: Omnipaque 350 Contrast volume:70 mL Oral: No COMPARISON: CT CHEST FOR PULMONARY EMBOLUS from 06/04/[address] ABDOMEN PELVIS W from 04/07/[address] ABDOMEN PELVIS W from 12/30/[address] THORAX ABD/PEL CTA from 01/07/2025 FINDINGS: ABDOMEN: Lung Bases: Mild atelectasis in the right lung base. Liver: Normal density. No measurable mass. Portal, Superior Mesenteric, and Splenic Veins: Unremarkable. Gallbladder and Biliary Tract: No radiodense calculus or dilation. Pancreas: Normal density, no abnormal calcifications or inflammatory process. Spleen: Normal. Adrenals: Stable bilateral adrenal nodules likely reflecting adenomas. No follow-up is recommended. Kidneys: Normal size, contour and axis. There are calcifications seen in the kidneys bilaterally. Th asif may be vascular. No hydronephrosis. Stable left renal cyst. No follow-up is recommended. Abdominal Aorta: Atherosclerotic calcification is present. There is again seen a 4.5 x 4.0 cm infrar enal abdominal aortic aneurysm. There are bilateral common iliac artery aneurysms. The left aneurys m extends into the internal iliac artery. There is again seen occlusion of the internal iliac arteri es bilaterally. Bowel: There is diverticulosis seen in the colon. No evidence of acute diverticulitis. The colon is of normal caliber. There is dilatation of the small bowel with a transition seen in the right lower quadrant (series 10 images 135-147. The terminal ileum is of normal caliber. There is no pneumatos is. No portal venous gas is present. The patient is status post appendectomy. Peritoneal Cavity: There is again seen a fluid collection anterior to the rectum which now measures 2 .8 x 2.3 cm. (Series 10, image 172). Previously this measured 4 x 3 cm. No free air. Lymph Nodes: Within normal limits. Bones: Within normal limits for the patient's age. There is a stable L1 compression fracture deformi ty and findings of prior vertebroplasty. Soft Tissues: Fat containing inguinal hernias. PELVIS: Bladder: The urinary bladder is incompletely distended. No gross abnormality is identified. Reproductive Organs: Prostate gland is enlarged. Lymph Nodes: Within normal limits. Bones: Within normal limits for the patient's age. IMPRESSION: 1. Dilated loop of small bowel with a transition in the right lower quadrant. Small-bowel obstructio n is suspected. 2. Interval decrease in size of the fluid collection anterior to the rectum which may represent a sma ll abscess. RADIATION DOSE DELIVERED: 350.85mGy.cm Total DLP DATA REPOSITORY: All CT scans at this facility are submitted to the National Radiology Data Registry (NRDR) Dose Index Registry (DIR) with the [employer] (A[employer]). RADIATION OPTIMIZATION: All CT scans at this facility use at least one of these dose optimization te chniques: automated exposure control; mA and/or kV adjustment per patient size (includes targeted exa ms where dose is matched to clinical indication); or iterative reconstruction.
--- NOTE | 2025-01-15 21:43 | ED.GENADUL_ITS ---
Discharge Plan Disposition Patient Disposition: Transfer-Acute Inpatient Care Specific Acute Inpt Facility: [facility] Condition: Fair Discharge Details Chief Complaint: Abd Prob Clinical Impression: Complete small bowel obstruction, Coronary atherosclerosis of [place] coronary vessel, Peripheral vascular disease, SUSANNE (acute kidney injury) Primary Care Provider: Leonid Hernandez ED Provider: Ileana Osborne Home Meds and New Rx's Prescriptions: No Action Incruse Ellipta 62.5 mcg/actuation blister with device 1 inh IH DAILY nitroglycerin [Nitrostat] 0.4 MG tablet, sublingual 0.4 mg Buccal ONCE PRN Qty: 30 clopidogrel [Plavix] 75 MG tablet 75 mg PO DAILY 90 Days Qty: 90 0RF lisinopril 10 MG tablet 10 mg PO DAILY 90 Days Qty: 90 3RF clotrimazole-betamethasone 1-0.05 % cream 1 applic topical BID omeprazole 20 mg capsule,delayed release(DR/EC) 20 mg PO DAILY cyclobenzaprine 10 mg tablet 10 mg PO BID PRN albuterol sulfate [ProAir HFA] 90 mcg/actuation HFA aerosol inhaler 2 puff inhalation Q6H PRN Repatha SureClick 140 mg/mL pen injector 140 mg SUBCUT .biweekly spironolactone 25 mg tablet 25 mg PO DAILY amiodarone 400 mg tablet 400 mg PO DAILY metoprolol succinate 25 mg tablet extended release 24 hr 25 mg PO DAILY valsartan 40 mg tablet 40 mg PO DAILY HPI General Mode of arrival: EMS . Date/Time Provider Initiated Documentation: 01/15/25 21:41 . Limitations to Documentation: no limitations . Information obtained by: patient, EMS and old records reviewed . HPI Narrative: HPI: This is a 69-year-old male patient with a past medical history significant for CAD status post stenting, ischemic cardiomyopathy with the most recent EF of 22%, history of nonsustained VT, and a recent admission to [facility] for ruptured appendicitis on 12/31, complicated by intra-abdominal abscess, as well as SBO. Discharged from [facility] on 01/10, and in improving state of health until this evening, when he developed profuse diarrhea, vomiting, and abdominal pain. The patient reports that diarrhea started with some mild abdominal discomfort, states that he summoned EMS because he felt very fatigued. EMS attempted to have the patient's stand and pivot, notes that he became profoundly orthostatic, dizzy, and unwell feeling. He did receive 300 cc of fluids prior to arrival at our facility with improvement in his blood pressure and tachycardia. The patient additionally had vomiting, large volume of thin brown emesis. He was incontinent of liquid stool during transport. Endorses some generalized abdominal pain and distention, for which he received morphine prior to arrival. The patient reports that he has a history of C. difficile, did have testing during his [facility] admission that did not show the presence of toxin. Exam: Gen: Awake and alert, appears uncomfortable HEENT: Non-icteric sclera Neck: Supple Lungs: No apparent respiratory distress, normal respiratory effort. CV: Appears well perfused, heart with regular rate and rhythm, strong pulses Abdomen: Distended and slightly firm, nontender and without peritonitis. Laparoscopy scars are well-healing without dehiscence MSK: Moves 4 extremities without apparent limitation in ROM Skin: Visualized skin without rashes, cyanosis. Neuro: No obvious focal deficits or facial asymmetry. Speaks in full, clear sentences. Psych: Appropriate for situation. MDM: This is a 69-year-old male patient presenting for evaluation of nausea with vomiting and diarrhea as well as abdominal pain and an episode of orthostasis with stand and pivot. Differential includes but is not limited to infectious diarrhea including C. difficile, considered bowel obstruction, intra-abdominal abscess, antibiotic effect, dehydration, metabolic and electrolyte derangement, kidney injury. We will obtain an EKG given the patient's cardiac history, though he has no chest pain to suggest ACS. Will also obtain laboratory studies to include CBC, CMP, magnesium, troponin, lipase, lactate, and will obtain a CT of the abdomen pelvis to evaluate for abnormalities which explain his symptoms. I will provide the patient in total 1 L of IV fluids for his orthostatic episode, but will hold on further administration given his history of ischemic cardiomyopathy. At this time the patient is not desiring any medications for management of pain or nausea but they will be provided as needed. ED Course: EKG reviewed by myself, showing a sinus rhythm with a rate of 62, and an intraventricular conduction delay and old infarct of the inferior leads, no evidence of acute ischemia. I reviewed the patient's laboratory studies, which do show a lactate elevation to 3.4, as well as a leukocytosis to 16 which is increased compared to the most recent laboratory study from 8 days ago. No anemia or thrombocytopenia. Chemistry panel with elevation in creatinine to 1.7, no electrolyte derangem ents, evidence of liver enzyme elevation which were noted on his most recent metabolic panel on our system. Trope negative, lipase low, C. difficile negative. I independently reviewed the patient's CT scan, which does show evidence of a small bowel obstruction with a transition point in the lower pelvis. Given the patient's history of ischemic cardiomyopathy which would require surgery in a facility capable of more robust cardiology/anesthesia interventions, as well as his recent admission and surgery performed at that facility I did reach out to [facility]. Dr. Saleh with the general surgery has graciously accepted this patient for admission to their facility, with a plan for transfer to the [facility] floor. He did request an NG tube be placed which I have ordered. [place] by EMS [place] [facility] remained hemodynamically appropriate and comfortable while under my care. Ileana Osborne MD Related Data Home Medications ?Medication ?Instructions ?Recorded ?Confirmed nitroglycerin 0.4 mg sublingual 0.4 mg buccal ONCE PRN #30 tab-caps 11/02/13 01/07/25 tablet (Nitrostat) clopidogrel 75 mg tablet (Plavix) 75 mg PO DAILY 90 days #90 tab-caps 01/07/18 01/07/25 lisinopril 10 mg tablet 10 mg PO DAILY 90 days #90 tabs 01/07/18 01/07/25 umeclidinium 62.5 mcg/actuation 1 inh inhalation DAILY 04/20/19 01/07/25 blister powder for inhalation (Incruse Ellipta) albuterol sulfate 90 mcg/actuation 2 puff inhalation Q6H PRN 10/22/21 01/07/25 aerosol inhaler (ProAir HFA) clotrimazole-betamethasone 1 1 applic topical BID 10/22/21 01/07/25 %-0.05 % topical cream cyclobenzaprine 10 mg tablet 10 mg PO BID PRN 10/22/21 01/07/25 omeprazole 20 mg capsule,delayed 20 mg PO DAILY 10/22/21 01/07/25 release evolocumab 140 mg/mL subcutaneous 140 mg subcut .biweekly 04/07/24 01/07/25 pen injector (elias Liebermanjose francisco) amiodarone 400 mg tablet 400 mg PO DAILY 01/07/25 01/07/25 metoprolol succinate 25 mg 25 mg PO DAILY 01/07/25 01/07/25 tablet,extended release 24 hr spironolactone 25 mg tablet 25 mg PO DAILY 01/07/25 01/07/25 valsartan 40 mg tablet 40 mg PO DAILY 01/07/25 01/07/25 Previous Rx's ?Medication ?Instructions ?Recorded clopidogrel 75 mg tablet (Plavix) 75 mg PO DAILY 90 days #90 tab-caps 01/07/18 lisinopril 10 mg tablet 10 mg PO DAILY 90 days #90 tabs 01/07/18 Allergies Allergy/AdvReac Type Severity Reaction Status Date / Time bupropion Allergy Intermediate HIVES Verified 01/07/25 10:37 Beta-Blockers Allergy Unknown PER MD Verified 01/07/25 10:37 (Beta-Adrenergic Bloc Ddyghjy-NRP-NcT Reductase AdvReac Unknown GI UPSET Verified 01/07/25 10:37 Inhibitor (Ecgcfak-Vko-Vhv Reductase Inhibitor) General NIC: 2 Medical Decision Making Quality:SDOH Health Related Social Needs: No Data to Display PFSH All Active Problems (Updated 01/15/25 @ 23:27 by Ileana Osborne MD) Complete small bowel obstruction (Acute) Intra-abdominal abscess (Acute) Sepsis (Acute) Ruptured appendicitis (Acute) SUSANNE (acute kidney injury) (Acute) SUSANNE (acute kidney injury) (Acute) C. difficile colitis (Acute) Lipoma (Acute) Chest pain (Acute) Ragsdale's esophagus (Acute 02/28/13) - February 2013 REPEAT GASTROSCOPY 2016 Coronary atherosclerosis of [place] coronary vessel (Acute 12/20/12) LA x 2/ stent in 2012: 11/1999: inf. myocardial infarction- tx: lytic therapy - 11/2011: myocardial infarction - tx:drug eluting stent H/O TIA (transient ischemic attack) and stroke (Acute 05/07/18) Peripheral vascular disease (Chronic 05/07/18) Polyp of colon (Acute 12/20/12) tuular adenoma x2: February 2013/ Ventricular tachycardia, nonsustained (Acute 05/07/18) Medical History GERD (gastroesophageal reflux disease) PVD (peripheral vascular disease) Cardiomyopathy Spinal compression fracture TIA (transient ischemic attack) FEROZ (obstructive sleep apnea) Low back pain Depression Statin intolerance (05/07/18) Irritable colon HTN (hypertension) Prediabetes Hyperlipidemia Surgical History Repair of umbilical hernia EGD - IV Sedation (06/27/16) DR. PINEDO; RAGSDALE'S ESOPHAGUS Coronary Stent Colonoscopy - IV Sedation (06/27/16) DR. PINEDO Colonoscopy - IV Sedation (02/25/13) DR. PINEDO Social History Smoking/Tobacco Use Status: Current every day Tobacco Type: cigarettes Smoking risk assessment performed?: Yes Alcohol Intake: current Alcohol Intake frequency: 0-2 drinks per day Alcohol type: wine and hard liquor Drug use: Never Substance use type: does not use Housing: house Do you feel safe at home: Yes Do you feel safe in your relationship?: Yes
[2025-01-15 21:47] LABS: Abs Immature Grans 0.23 10^3/uL (0.0-0.06); Absolute Basophil Count 0.13 10^3/uL (0.0-0.2); Absolute Eosinophil Count 0.08 10^3/uL (0.0-0.7); Absolute Lymphocyte Count 1.81 10^3/uL (1.2-3.4); Absolute Monocyte Count 1.25 10^3/uL (0.1-0.8); Basophils % 0.8 %; Eosinophils % 0.5 %; HCT 48.3 % (40.0-50.0); HGB 16.4 g/dL (13.5-17.5); Immature Grans % 1.4 %; Lymphocytes % 10.7 %; MCH 32.1 pg (27.0-33.0); MCV 95 fL (80-95); MPV 10.1 fL (8.0-11.0); Monocytes % 7.4 %; Neutrophils % 79.2 %; Platelet Count 595 10^3/uL (130-400); RBC 5.11 10^6/uL (4.36-5.78); RDW 13.5 % (11.8-14.1); RDW-SD 47.3 fL; WBC 16.87 10^3/uL (4.4-10.8)
[2025-01-15 21:49] LABS: Lactate 3.4 mmol/L (<or=2.0)
[2025-01-15 21:50] LABS: Absolute Neutrophil Count 13.36 10^3/uL (1.2-6.7)
[2025-01-15] MEDS: Omnipaque 350 MG/ML 100 ML BTL IJ (21:50)
[2025-01-15] MEDS: Normal Saline Flush 10 ML SYR IVP (21:51)
[2025-01-15] MEDS: Normal Saline - Diluent 50 ML VIAL IJ (21:51)
[2025-01-15 22:05] LABS: ALT 108 U/L (16-63); AST 38 U/L (15-37); Albumin 3.3 g/dL (3.4-5.0); Alkaline Phosphatase 161 U/L (46-116); Anion Gap 14.4 mmol/L (3-11); BUN 16 mg/dL (7-18); Bilirubin, Total 0.7 mg/dL (0.2-1.0); CO2 24.6 mmol/L (21.0-32.0); CREATININE 1.7 mg/dL (0.70-1.30); Calcium 9.7 mg/dL (8.5-10.1); Chloride 99 mmol/L (98-107); Estimated GFR 42.57 (mL/min/1.73m2); Glucose 173 mg/dL (74-106); Lipase 51 U/L (<78); Magnesium 1.6 mg/dL; Potassium 3.8 mmol/L (3.5-5.1); Sodium 138 mmol/L (136-145); Total Protein 8.5 g/dL (6.4-8.2); Troponin I 33 ng/L (<or=76)
[2025-01-15] MEDS: MORPHine 4 MG/ML SYR IVP (22:41)
--- NOTE | 2025-01-15 23:02 | DI.VRAD_ITS ---
PROCEDURE INFORMATION: Exam: CT Abdomen And Pelvis With Contrast Exam date and time: 01/15/2025 10:00 PM Age: 69 years old Clinical indication: Abdominal pain; Generalized; Prior surgery; Surgery date: <1 month; Surgery type: Appendectomy 2 weeks ago, recent surgery, sbo vs c diff, n/v/d TECHNIQUE: Imaging protocol: Computed tomography of the abdomen and pelvis with contrast. Radiation optimization: All CT scans at this facility use at least one of these dose optimization techniques: automated exposure control; mA and/or kV adjustment per patient size (includes targeted exams where dose is matched to clinical indication); or iterative reconstruction. Contrast material: OMNIPAQUE 350; Contrast volume: 70 ml; Contrast route: INTRAVENOUS (IV); COMPARISON: CT THORAX ABD/PEL CTA 01/07/2025 8:38 AM FINDINGS: Lungs: Lung bases are clear. Liver: The liver has a normal appearance. Gallbladder and biliary ducts: Normal. No calcified stones. No ductal dilation. Pancreas: The pancreas demonstrates normal size and enhancement. No pancreatic ductal dilatation. Spleen: The spleen demonstrates normal size and enhancement. Adrenal glands: Bilateral enhancing adrenal mass lesions are redemonstrated. Kidneys and ureters: There are bilateral nonobstructing subcentimeter renal calculi. No hydronephrosis. No hydroureter or ureterolithiasis. Stomach and bowel: Proximal small bowel is decompressed the midportion of the small is dilated filled with liquid stool and solid-appearing stool. A focal distal transition point is present within the mid pelvis just anterior to the aortic bifurcation. The distal aspect of the small bowel is decompressed. The colon is decompressed. No bowel thickening. No pneumatosis. Appendix: The appendix is not visualized. Surgical clips are noted in the region of the cecum suggesting prior appendectomy. Intraperitoneal space: No pneumoperitoneum. No free intraperitoneal fluid. Vasculature: Aneurysmal dilatation of the abdominal aorta measures up to 4.3 cm in diameter. Aneurysmal dilatation of the bilateral iliac arteries is noted. Lymph nodes: Unremarkable. No enlarged lymph nodes. Urinary bladder: Bladder is decompressed. Reproductive: Unremarkable as visualized. Bones/joints: Severe compression deformity and vertebroplasty is redemonstrated at L1. Soft tissues: There are bilateral small fat containing inguinal hernias. IMPRESSION: 1. Findings most consistent with small bowel obstruction. A transition point is present within the distal small bowel within pelvis as described above. No findings to suggest bowel ischemia. No pneumatosis or portal venous gas. 2. Enhancing adrenal mass lesions redemonstrated. 3. Abdominal and bilateral iliac artery aneurysms redemonstrated. THIS REPORT CONTAINS FINDINGS THAT MAY BE CRITICAL TO PATIENT CARE. The findings were verbally communicated via telephone conference with Ileana Osborne at 11:01 PM EDT on 01/15/2025. The findings were acknowledged and understood. Dictated and Authenticated by: Smiley Preciado MD. Orderin St. Abbe Tejeda MD
[2025-01-15 23:06] LABS: C Diff PCR Negative (Negative); EPI 027-NAP1-B1 PRESUMPTIVE NEGATIVE
[2025-01-15 23:10] LABS: Troponin I 24 ng/L (<or=76)
[2025-01-16 00:15] VITALS: BP 131/71; PULSE 64; RESP 14; O2SAT 96
[2025-01-16] MEDS: Lidocaine 2% Jelly 11 ML SYR (00:15)
[2025-01-16] MEDS: MORPHine 4 MG/ML SYR IVP (00:15)
== END 2025-01-16 00:18 | disposition short-term general hospital (02) ==
PROVIDERS: Emergency Provider Emergency Medicine; PCP Physician Assistant Medical
DX: K56.601 Complete intestinal obstruction, unspecified as to cause (principal); I10 Essential (primary) hypertension; I25.10 Atherosclerotic heart disease of native coronary artery without angina pectoris; I25.2 Old myocardial infarction; E78.5 Hyperlipidemia, unspecified; J44.9 Chronic obstructive pulmonary disease, unspecified; R94.31 Abnormal electrocardiogram [ECG] [EKG]; Z79.01 Long term (current) use of anticoagulants
CPT/HCPCS: 36415; 80053; 83690; 93005; 96374; 96376; 99285; 74177; 83605; 83735; 84484; 85025; 93010; J2270; J3490

== ENCOUNTER 2025-02-01 04:43 | Emergency (ER) | payer MEDICARE, OTHER, SELFPAY ==
[2025-02-01] VITALS (82 sets, daily range): BP systolic 92–162; BP diastolic 30–97; PULSE 69–120; RESP 10–20; TEMP 35.8; O2SAT 93–100
--- NOTE | 2025-02-01 05:07 | W.ED.GENAD ---
Discharge Plan Discharge Details Chief Complaint: Abd Prob Clinical Impression: Vomiting Primary Care Provider: Leonid Hernandez ED Provider: Abdullahi Zavala Home Meds and New Rx's Prescriptions: No Action Incruse Ellipta 62.5 mcg/actuation blister with device 1 inh IH DAILY nitroglycerin [Nitrostat] 0.4 MG tablet, sublingual 0.4 mg Buccal ONCE PRN Qty: 30 clopidogrel [Plavix] 75 MG tablet 75 mg PO DAILY 90 Days Qty: 90 0RF lisinopril 10 MG tablet 10 mg PO DAILY 90 Days Qty: 90 3RF clotrimazole-betamethasone 1-0.05 % cream 1 applic topical BID cyclobenzaprine 10 mg tablet 10 mg PO BID PRN albuterol sulfate [ProAir HFA] 90 mcg/actuation HFA aerosol inhaler 2 puff inhalation Q6H PRN Repatha SureClick 140 mg/mL pen injector 140 mg SUBCUT .biweekly spironolactone 25 mg tablet 25 mg PO DAILY amiodarone 400 mg tablet 400 mg PO DAILY metoprolol succinate 25 mg tablet extended release 24 hr 25 mg PO DAILY valsartan 40 mg tablet 40 mg PO DAILY HPI General Date/Time Provider Initiated Documentation: 02/01/25 04:44. HPI Narrative: This is a very pleasant 69-year-old male with a past medical history of coronary artery disease status post stenting, ischemic cardiomyopathy with ejection fraction around 22%, COPD, hypertension, high cholesterol and a very complicated recent abdominal surgical history. In brief, he was diagnosed with a ruptured appendicitis on 12/30 and transferred to [facility], he had surgery and was eventually discharged, on 01/07 he returned to the ER and was found to have developed multiple intra-abdominal abscesses and small bowel obstruction, he was transferred to [facility] and medically managed and subsequently discharged on 01/10. On 01/15 he returned to the ED with vomiting and was again transferred to [facility] for small bowel obstruction for subsequent 2-week admission, while at [facility] he had multiple episodes of NG tube use, NG tube removal, recurrence of obstruction, eventually he underwent diagnostic laparoscopy on 01/23 where he was found to have additional abscess in the midline pelvis with dense adhesions to the distal ileum. Enterotomy was created and small bowel was resected. Abscess was drained. He was eventually discharged on 01/29/2025. That was Thursday. Since then for the last 3 days he has had notably limited appetite. He has had 1 very small meal each day. He has felt nauseous and unwell. He has been drinking fluids and urinating. At 6:30 PM last night after eating half of a ham sandwich he had an episode of notable green vomitus. He did not eat anything more after that and then he again vomited at 230 this morning. About an hour or so after that he had a relatively normal bowel movement with no diarrhea or blood. He presents at this time for concern for persistent intermittent nausea, and the return of his vomiting. Currently he denies any significant pain in his abdomen. He feels notably weak secondary to not being able to eat much. He denies fever or chills. He denies any chest pain or shortness of breath. No other complaints at this time. Related Data Home Medications ?Medication ?Instructions ?Recorded ?Confirmed nitroglycerin 0.4 mg sublingual 0.4 mg buccal ONCE PRN #30 tab-caps 11/02/13 02/01/25 tablet (Nitrostat) clopidogrel 75 mg tablet (Plavix) 75 mg PO DAILY 90 days #90 tab-caps 01/07/18 02/01/25 lisinopril 10 mg tablet 10 mg PO DAILY 90 days #90 tabs 01/07/18 02/01/25 umeclidinium 62.5 mcg/actuation 1 inh inhalation DAILY 04/20/19 02/01/25 blister powder for inhalation (Incruse Ellipta) albuterol sulfate 90 mcg/actuation 2 puff inhalation Q6H PRN 10/22/21 02/01/25 aerosol inhaler (ProAir HFA) clotrimazole-betamethasone 1 1 applic topical BID 10/22/21 02/01/25 %-0.05 % topical cream cyclobenzaprine 10 mg tablet 10 mg PO BID PRN 10/22/21 02/01/25 evolocumab 140 mg/mL subcutaneous 140 mg subcut .biweekly 04/07/24 02/01/25 pen injector (Mayela Lovell) amiodarone 400 mg tablet 400 mg PO DAILY 01/07/25 02/01/25 metoprolol succinate 25 mg 25 mg PO DAILY 01/07/25 02/01/25 tablet,extended release 24 hr spironolactone 25 mg tablet 25 mg PO DAILY 01/07/25 02/01/25 valsartan 40 mg tablet 40 mg PO DAILY 01/07/25 02/01/25 Previous Rx's ?Medication ?Instructions ?Recorded clopidogrel 75 mg tablet (Plavix) 75 mg PO DAILY 90 days #90 tab-caps 01/07/18 lisinopril 10 mg tablet 10 mg PO DAILY 90 days #90 tabs 01/07/18 Allergies Allergy/AdvReac Type Severity Reaction Status Date / Time bupropion Allergy Intermediate HIVES Verified 02/01/25 04:54 Beta-Blockers Allergy Unknown PER MD Verified 02/01/25 04:54 (Beta-Adrenergic Bloc Wibvvbu-BSN-LeD Reductase AdvReac Unknown GI UPSET Verified 02/01/25 04:54 Inhibitor (Cvzodgx-Yjh-Koi Reductase Inhibitor) General Stated Complaint: Abd Prob NIC: 3 Exam Narrative Exam Narrative: 1.Const: Well-nourished, Well-developed, appearing stated age 2.Eyes: PERRL, no conjunctival injection, and symmetrical lids. 3.ENT: Atraumatic external nose and ears. Notably dry MM. Neck: Symmetric, trachea midline, No thyromegaly. 4.CVS: +S1/S2, Peripheral pulses 2+ and equal in all extremities. Brisk capillary refill in all extremities. 5.RESP: Unlabored respiratory effort. Clear to auscultation bilaterally. No wheezes rales or rhonchi 6.GI: Soft, nondistended. Bowel sounds limited. Postoperative surgical site are clean dry and intact with anu. Mild bloating, no severe distention though. No focal significant tenderness throughout. 7.MSK: Normocephalic/Atraumatic, Extremities w/o deformity or ttp No cyanosis or clubbing, Normal movement of all extremities 8.Skin: Warm, Dry. No rashes or lesions. 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 Sensation grossly intact, no focal neurologic deficits. 10.Psych: (AAO) x3. Appropriate mood and affect Course Vital Signs Vital signs: Vital Signs Temperature 35.8 C L 02/01/25 04:48 Pulse 91 H 02/01/25 04:48 Respiratory Rate 16 02/01/25 04:48 Blood Pressure 162/87 H 02/01/25 04:48 Pulse Oximetry 99 02/01/25 04:48 Temperature 35.8 C L 02/01/25 04:48 Temperature Source Temporal Artery Scan 02/01/25 04:48 Pulse 91 H 02/01/25 04:48 Respiratory Rate 16 02/01/25 04:48 Blood Pressure 162/87 H 02/01/25 04:48 Blood Pressure Position Sitting 02/01/25 04:48 Pulse Oximetry 99 02/01/25 04:48 Oxygen Delivery Method Room Air 02/01/25 04:48 Oxygen Flow Rate 0 02/01/25 04:48 Pain Level 5 02/01/25 04:48 Medical Decision Making This is a very pleasant 69-year-old male with a past medical history of coronary artery disease status post stenting, ischemic cardiomyopathy with ejection fraction around 22%, COPD, hypertension, high cholesterol and a very complicated recent abdominal surgical history. In brief, he was diagnosed with a ruptured appendicitis on 12/30 and transferred to [facility], he had surgery and was eventually discharged, on 01/07 he returned to the ER and was found to have developed multiple intra-abdominal abscesses and small bowel obstruction, he was transferred to [facility] and medically managed and subsequently discharged on 01/10. On 01/15 he returned to the ED with vomiting and was again transferred to [facility] for small bowel obstruction for subsequent 2-week admission, while at [facility] he had multiple episodes of NG tube use, NG tube removal, recurrence of obstruction, eventually he underwent diagnostic laparoscopy on 01/23 where he was found to have additional abscess in the midline pelvis with dense adhesions to the distal ileum. Enterotomy was created and small bowel was resected. Abscess was drained. He was eventually discharged on 01/29/2025. That was Thursday. Since then for the last 3 days he has had notably limited appetite. He has had 1 very small meal each day. He has felt nauseous and unwell. He has been drinking fluids and urinating. At 6:30 PM last night after eating half of a ham sandwich he had an episode of notable green vomitus. He did not eat anything more after that and then he again vomited at 230 this morning. About an hour or so after that he had a relatively normal bowel movement with no diarrhea or blood. He presents at this time for concern for persistent intermittent nausea, and the return of his vomiting. Currently he denies any significant pain in his abdomen. He feels notably weak secondary to not being able to eat much. He denies fever or chills. He denies any chest pain or shortness of breath. No other complaints at this time. Exam demonstrates postoperative surgical sites that are clean dry and intact. Bowel sounds slightly reduced but present. Mild abdominal bloating but no severe distention. No focal abdominal tenderness. Differential is broad but includes recurrence of abscess, stricture, repeat obstruction, pancreatitis, ischemic necrosis of bowel, amongst other pathology. He certainly is dehydrated. Will gently rehydrate with a 500 cc bolus, will give Zofran, we will perform oral and IV contrast CAT scan, we will monitor closely and reassess. 7:57 AM Laboratory workup shows mildly elevated white count at 13, electrolytes stable, alk phos elevated at 277. Lipase normal. Patient held down all of the oral contrast, and he is also passing gas. Independent review of CT imaging shows signs and symptoms concerning for obstruction though. Pending radiology read. Patient will be signed out to my colleague Dr. Nuno for follow-up on CT imaging results and further discussion with [facility]. Discussed current status with family and they are aware of plan. Quality:[facility] Related Social Needs: No Data to Display [facility] All Active Problems (Updated 02/01/25 @ 07:58 by Abdullahi Zavala DO) Vomiting (Acute) Complete small bowel obstruction (Acute) Intra-abdominal abscess (Acute) Sepsis (Acute) SUSANNE (acute kidney injury) (Acute) SUSANNE (acute kidney injury) (Acute) C. difficile colitis (Acute) Lipoma (Acute) Chest pain (Acute) Ragsdale's esophagus (Acute 02/28/13) - February 2013 REPEAT GASTROSCOPY 2016 Coronary atherosclerosis of [place] coronary vessel (Acute 12/20/12) NV x 2/ stent in 2012: 11/1999: inf. myocardial infarction- tx: lytic therapy - 11/2011: myocardial infarction - tx:drug eluting stent H/O TIA (transient ischemic attack) and stroke (Acute 05/07/18) Peripheral vascular disease (Chronic 05/07/18) Polyp of colon (Acute 12/20/12) tuular adenoma x2: February 2013/ Ventricular tachycardia, nonsustained (Acute 05/07/18) Medical History GERD (gastroesophageal reflux disease) PVD (peripheral vascular disease) Cardiomyopathy Spinal compression fracture TIA (transient ischemic attack) FEROZ (obstructive sleep apnea) Low back pain Depression Statin intolerance (05/07/18) Irritable colon HTN (hypertension) Prediabetes Hyperlipidemia Surgical History Repair of umbilical hernia EGD - IV Sedation (06/27/16) DR. PINEDO; RAGSDALE'S ESOPHAGUS Coronary Stent Colonoscopy - IV Sedation (06/27/16) DR. PINEDO Colonoscopy - IV Sedation (02/25/13) DR. PINEDO Social History Smoking/Tobacco Use Status: Current every day Tobacco Type: cigarettes Smoking risk assessment performed?: Yes Alcohol Intake: former Drug use: Never Substance use type: does not use Housing: house Do you feel safe at home: Yes Do you feel safe in your relationship?: Yes
[2025-02-01 05:10] LABS: Absolute Basophil Count 0.08 10^3/uL (0.0-0.2); Absolute Eosinophil Count 0.05 10^3/uL (0.0-0.7); Absolute Neutrophil Count 9.14 10^3/uL (1.2-6.7); Basophils % 0.6 %; Eosinophils % 0.4 %; HCT 41.8 % (40.0-50.0); HGB 14.2 g/dL (13.5-17.5); Immature Grans % 2.9 %; Lymphocytes % 19.5 %; MCH 31.5 pg (27.0-33.0); MCV 93 fL (80-95); MPV 10.6 fL (8.0-11.0); Monocytes % 9.5 %; Neutrophils % 67.1 %; Platelet Count 362 10^3/uL (130-400); RBC 4.51 10^6/uL (4.36-5.78); RDW 14.2 % (11.8-14.1); RDW-SD 48.5 fL; WBC 13.62 10^3/uL (4.4-10.8)
[2025-02-01 05:11] LABS: Absolute Lymphocyte Count 2.66 10^3/uL (1.2-3.4); Absolute Monocyte Count 1.29 10^3/uL (0.1-0.8)
[2025-02-01] MEDS: Normal Saline 500 ML IV (05:11)
[2025-02-01] MEDS: Ondansetron 4 MG/2 ML VIAL IVP (05:13)
[2025-02-01] MEDS: Omnipaque 350 MG/ML 50 ML BTL PO (05:24)
[2025-02-01 05:28] LABS: ALT 85 U/L (16-63); AST 25 U/L (15-37); Albumin 2.9 g/dL (3.4-5.0); Alkaline Phosphatase 277 U/L (46-116); Anion Gap 12.9 mmol/L (3-11); BUN 13 mg/dL (7-18); Bilirubin, Total 0.9 mg/dL (0.2-1.0); CO2 22.1 mmol/L (21.0-32.0); Calcium 9.5 mg/dL (8.5-10.1); Chloride 98 mmol/L (98-107); Estimated GFR 80.47 (mL/min/1.73m2); Glucose 159 mg/dL (74-106); Lipase 36 U/L (<78); Potassium 3.5 mmol/L (3.5-5.1); Sodium 133 mmol/L (136-145); Total Protein 7.7 g/dL (6.4-8.2)
[2025-02-01] MEDS: Normal Saline - Diluent 50 ML VIAL IV (07:02)
[2025-02-01] MEDS: Omnipaque 350 MG/ML 100 ML BTL IJ (07:04)
--- NOTE | 2025-02-01 07:06 | DI.CT_ITS ---
Exam(s) CT ABDOMEN PELVIS W EXAM: CT ABDOMEN PELVIS W CLINICAL HISTORY: Multiple recent abscesses, surgeries, and obstruct. TECHNIQUE: Imaging Protocol: Axial computed tomography images with coronal and sagittal reformatted images were created and reviewed CONTRAST MATERIAL: Intravenous: Omnipaque-350 95cc Oral: None COMPARISON: CT CT ABDOMEN PELVIS W from 01/15/2025 FINDINGS: VISUALIZED LUNG BASES: No nodules nor pleural effusions evident. ABDOMEN: GI: Evidence of previous small bowel distal small bowel surgery. The stomach is not distended. Cherry mariluz, there are dilated small bowel loops measuring up to 5 cm diameter consistent with an element of distal small bowel obstruction, despite the fact that the colon is not collapsed. There is no free a ir. There has been interval midline laparotomy. The previously described collection between the rec neetu and the bladder is unchanged, measuring approximately 3 cm wide by a 2 cm AP; possible abscess. There are no other abnormal collections. LIVER: There are no focal hepatic lesions evident. No dilated intrahepatic ducts. GALLBLADDER/BILIARY: No obvious gallbladder pathology. CBD is not dilated. PANCREAS: No evidence of pancreatic mass nor dilatation of the pancreatic duct. SPLEEN: Spleen is not enlarged. No obvious intrasplenic lesions. Splenic and portal veins are paten t. ADRENALS: Previously described bilateral adrenal nodules again noted. Left adrenal nodule may be min imally larger than previous. KIDNEYS:Benign cyst in the lateral cortex of the left kidney again noted. No solid renal masses evid ent. Small nonobstructive renal calculi again noted.. ABDOMINAL AORTA: There is an infrarenal abdominal aortic aneurysm again noted with maximum diameter o f 4.5 cm. There is also again noted significant aneurysmal dilatation of both common iliac arteries, similar to previous and there is occlusion of both internal iliac arteries again noted. Atheroscler otic involvement of the external iliac arteries again evident. LYMPH NODES:There is no retroperitoneal nor paraaortic adenopathy. ABDOMINAL WALL: No evidence of significant anterior abdominal wall nor inguinal hernia. There is mil d fluid related to the midline subumbilical incision, possibly infectious. PELVIS: GI: Appendix surgically absent.No evidence of sigmoid diverticulitis. LYMPH NODES: There is no intrapelvic nor inguinal adenopathy. REPRODUCTIVE: Enlarged prostate again noted. Seminal vesicles unremarkable. URINARY BLADDER: No calculi nor obvious masses evident OSSEOUS: Vertebroplasty cement is noted within the collapsed/compression fracture of L1 and this vert ebroplasty cement is also evident in the nucleus pulposis-central region of the L1-2 disc space, kervin lar to the previous study. No new fractures evident. Chronic disc space narrowing at L5-S1 level ag ain noted. No listhesis. No lytic nor blastic osseous lesions evident. IMPRESSION: 1. Distal small bowel obstruction in patient with prior distal small bowel surgery. Transition point is in the distal small bowel and probably related to adhesions. Fact that the colon is not collapse d may imply that this is partial small bowel obstruction or more complete obstruction with not enough lapse of time. If clinically indicated can repeat the scan in a few hours time to determine if the oral contrast has progressed into the colon. There is no free air. 2. Persistent abnormal fluid collection in the deep pelvis between the bladder and rectum measuring 3 x 2 cm and may represent an abscess. 3. Bilateral adrenal nodules again noted.. If clinically indicated added specificity with respect to the type of adrenal nodules can be obtained with noninfused MRI adrenal protocol study using chemica l shift imaging in and out of phase sequences. 4. Significant aneurysms of the abdominal aorta and bilateral common iliac arteries again noted, kervin lar to previous. In addition, also again noted is occlusion of both internal iliac arteries. 5. midline recent laparotomy incision with some associated fluid either incisional seroma versus deve loping abscess. Correlate clinically. First read by [facility] Findings discussed with ER physician 02/01/2025 at 8:45 a.m. RADIATION DOSE DELIVERED: 673.69mGy.cm Total DLP DATA REPOSITORY: All CT scans at this facility are submitted to the National Radiology Data Registry (NRDR) Dose Index Registry (DIR) with the [employer] (ACR). RADIATION OPTIMIZATION: All CT scans at this facility use at least one of these dose optimization te chniques: automated exposure control; mA and/or kV adjustment per patient size (includes targeted exa ms where dose is matched to clinical indication); or iterative reconstruction.
--- NOTE | 2025-02-01 08:25 | DI.VRAD_ITS ---
Addendum created by Santana Dickens DO on 02/01/2025 8:28:04 AM EDT: ADDENDUM: Case was discussed with the care provider on 02/01/2025 at 7:27 a.m. Initial report created on 02/01/2025 8:25:38 AM EDT: PROCEDURE INFORMATION: Exam: CT Abdomen And Pelvis With Contrast Exam date and time: 02/01/2025 6:50 AM Age: 69 years old Clinical indication: Vomiting; Abdominal pain; Generalized; Prior surgery; Surgery date: <1 month; Surgery type: Appendectomy 4 weeks ago and then bowel obstruction surgery 2 1/2 weeks ago; Multiple recent abscesses, surgeries, and obstruction TECHNIQUE: Imaging protocol: Computed tomography of the abdomen and pelvis with contrast. Radiation optimization: All CT scans at this facility use at least one of these dose optimization techniques: automated exposure control; mA and/or kV adjustment per patient size (includes targeted exams where dose is matched to clinical indication); or iterative reconstruction. Contrast material: OMNIPAQUE 350; Contrast volume: 75 ml; Contrast route: INTRAVENOUS (IV); COMPARISON: CT ABD PELVIS W LEB 01/20/2025 1:12 PM FINDINGS: Lungs: Basilar scarring/atelectasis. Heart: Base of heart is unremarkable as visualized. Liver: Normal. No mass. Gallbladder and biliary ducts: Normal. No calcified stones. No ductal dilation. Pancreas: Normal. No ductal dilation. Spleen: Normal. No splenomegaly. Adrenal glands: Stable left adrenal indeterminate nodule measuring up to 2.6 cm. Kidneys and ureters: Stable left renal cyst. Nonobstructive nephrolithiasis. Stomach and bowel: Long segment small bowel dilation. Anastomotic suture chain of the small bowel in the right lower quadrant. Diverticulosis without evidence of diverticulitis. Postoperative change of the cecum. Appendix: No evidence of appendicitis. Intraperitoneal space: Unremarkable. No free air. No significant fluid collection. Vasculature: Stable infrarenal abdominal aorta aneurysm. Stable bilateral common iliac artery aneurysms. Lymph nodes: Unremarkable. No enlarged lymph nodes. Urinary bladder: Unremarkable as visualized. Reproductive: Unremarkable as visualized. Bones/joints: Unremarkable. No acute fracture. Soft tissues: Midline abdominal wall surgical change. Incisional seroma. IMPRESSION: Findings concerning for ileus versus small bowel obstruction without focal transition. Correlate clinically. Dictated and Authenticated by: Santana Dickens MD. Orderin Lucas Fernando MD
--- NOTE | 2025-02-01 08:42 | W.EDPROG ---
Date of service: 02/01/25 Time of Service: 08:42 Medical Decision Making Care was signed out by Dr. Zavala, please see his documentation regarding initial ED presentation course. Plan at signout was to follow-up on CT of the abdomen and pelvis. The CT of the abdomen pelvis was reviewed and interpreted by radiology: See report below, concern for bowel obstruction versus long ileus. Matted loops of bowel in the right lower quadrant concern for evolving fistula. 8:39 --I called [facility] transfer center, relayed case information and requested transfer. CT sent for review. Awaiting callback. 9:24 --I spoke with Dr. Lopes, on-call surgery at [facility], discussed ED presentation and course, he will accept the patient in transfer. There is currently no capacity. He recommends placing NG tube here to suction. Transfer center reviewing bed availability. 1145 --NG tube placed by nursing. Post NG tube portable chest x-ray was reviewed and interpreted by radiology: No acute pulmonary findings. Distal tip of NG tube appears to be in the proximal stomach. -- Patient still awaiting placement at [facility]. Imaging Data Radiologic Study: Imaging: CT Scan Radiologist's impression: FINDINGS: Lungs: Basilar scarring/atelectasis. Heart: Base of heart is unremarkable as visualized. Liver: Normal. No mass. Gallbladder and biliary ducts: Normal. No calcified stones. No ductal dilation. Pancreas: Normal. No ductal dilation. Spleen: Normal. No splenomegaly. Adrenal glands: Stable left adrenal indeterminate nodule measuring up to 2.6 cm. Kidneys and ureters: Stable left renal cyst. Nonobstructive nephrolithiasis. Stomach and bowel: Long segment small bowel dilation. Anastomotic suture chain of the small bowel in the right lower quadrant. Diverticulosis without evidence of diverticulitis. Postoperative change of the cecum. Appendix: No evidence of appendicitis. Intraperitoneal space: Unremarkable. No free air. No significant fluid collection. Vasculature: Stable infrarenal abdominal aorta aneurysm. Stable bilateral common iliac artery aneurysms. Lymph nodes: Unremarkable. No enlarged lymph nodes. Urinary bladder: Unremarkable as visualized. Reproductive: Unremarkable as visualized. Bones/joints: Unremarkable. No acute fracture. Soft tissues: Midline abdominal wall surgical change. Incisional seroma. IMPRESSION: Findings concerning for ileus versus small bowel obstruction without focal transition. Correlate clinically. Lab Data Labs: Laboratory Tests Range/Units 02/01/25 05:03 WBC (4.4-10.8) 10^3/uL 13.62 H RBC (4.36-5.78) 10^6/uL 4.51 Hgb (13.5-17.5) g/dL 14.2 Hct (40.0-50.0) % 41.8 MCV (80-95) fL 93 MCH (27.0-33.0) pg 31.5 MCHC (32.0-36.0) % 34.0 RDW (11.8-14.1) % 14.2 H Plt Count (130-400) 10^3/uL 362 MPV (8.0-11.0) fL 10.6 Immature Gran % % 2.9 Neutrophils % % 67.1 Lymphocytes % % 19.5 Monocytes % % 9.5 Eosinophils % % 0.4 Basophils % % 0.6 Nucleated RBC % (0.0-0.3) % 0.0 Absolute Neutrophils (1.2-6.7) 10^3/uL 9.14 H Absolute Lymphocytes (1.2-3.4) 10^3/uL 2.66 Absolute Monocytes (0.1-0.8) 10^3/uL 1.29 H Absolute Eosinophils (0.0-0.7) 10^3/uL 0.05 Absolute Basophils (0.0-0.2) 10^3/uL 0.08 Sodium (136-145) mmol/L 133 L Potassium (3.5-5.1) mmol/L 3.5 Chloride (98-107) mmol/L 98 Carbon Dioxide (21.0-32.0) mmol/L 22.1 Anion Gap (3-11) mmol/L 12.9 H BUN (7-18) mg/dL 13 Creatinine (0.70-1.30) mg/dL 1.0 Est GFR (CKD-EPI 2020) (mL/min/1.73m2) 80.47 Glucose (74-106) mg/dL 159 H Calcium (8.5-10.1) mg/dL 9.5 Total Bilirubin (0.2-1.0) mg/dL 0.9 AST (15-37) U/L 25 ALT (16-63) U/L 85 H Alkaline Phosphatase (46-116) U/L 277 H Total Protein (6.4-8.2) g/dL 7.7 Albumin (3.4-5.0) g/dL 2.9 L Lipase (<78) U/L 36 Quality:[facility] Health Related Social Needs: No Data to Display Discharge Plan Disposition Patient Disposition: Transfer-Acute Inpatient Care Specific Acute Inpt Facility: [facility] Condition: Serious Discharge Details Chief Complaint: Abd Prob Clinical Impression: Vomiting, SBO (small bowel obstruction), Abdominal fluid collection Primary Care Provider: Leonid Heranndez ED Provider: Brady Nuno Home Meds and New Rx's Prescriptions: No Action Incruse Ellipta 62.5 mcg/actuation blister with device 1 inh IH DAILY nitroglycerin [Nitrostat] 0.4 MG tablet, sublingual 0.4 mg Buccal ONCE PRN Qty: 30 clopidogrel [Plavix] 75 MG tablet 75 mg PO DAILY 90 Days Qty: 90 0RF lisinopril 10 MG tablet 10 mg PO DAILY 90 Days Qty: 90 3RF clotrimazole-betamethasone 1-0.05 % cream 1 applic topical BID cyclobenzaprine 10 mg tablet 10 mg PO BID PRN albuterol sulfate [ProAir HFA] 90 mcg/actuation HFA aerosol inhaler 2 puff inhalation Q6H PRN Repatha SureClick 140 mg/mL pen injector 140 mg SUBCUT .biweekly spironolactone 25 mg tablet 25 mg PO DAILY amiodarone 400 mg tablet 400 mg PO DAILY metoprolol succinate 25 mg tablet extended release 24 hr 25 mg PO DAILY valsartan 40 mg tablet 40 mg PO DAILY
[2025-02-01] MEDS: Normal Saline 1,000 ML 125 ML IV ×2 (09:18→19:28)
[2025-02-01] MEDS: FAMOTIDINE 20 MG in Normal Saline 100 ML 400 MG IVPB (11:04)
[2025-02-01] MEDS: Benzocaine 20% 60 ML CAN (11:09)
--- NOTE | 2025-02-01 11:35 | DI.RAD_ITS ---
Exam(s) XR PORTABLE CHEST AP EXAM: XR PORTABLE CHEST AP CLINICAL HISTORY: Post NG placement. TECHNIQUE: 2D digital imaging was performed. COMPARISON: CR XR CHEST 2V PA LATERAL from 10/05/2024 FINDINGS: Single AP portable view. Heart size is upper normal. The mediastinum is not widened. Lungs are clear. No infiltrates nor obvious pleural effusions. There is a E thin caliber NG tube. Its distal tip appears to be in the proximal stomach. There is no free air evident IMPRESSION: No acute pulmonary findings on this single AP portable view of the chest. Distal tip of NG tube appears to be in the proximal stomach. DATA REPOSITORY: RADIATION DOSE DELIVERED:
[2025-02-01] MEDS: ACETAMINOPHEN 1,000 MG/100 ML BAG 400 MG IVPB (17:49)
--- NOTE | 2025-02-01 20:17 | ED.PROG_ITS ---
Date of service: 02/01/25 Time of Service: 17:00 Medical Decision Making In brief, this is a 69-year-old male patient who has had an extended past surgical course at [facility] for ruptured appendix complicated by multiple small bowel obstructions and intra-abdominal abscesses, boarding in our emergency department awaiting transfer to [facility] for same. An NG tube was placed and he has tolerated it well, he has comfortable though I did provide him with a dose of Tylenol, and during my shift a bed did become available at [facility]. He was transferred by [facility] to that facility for definitive management, remained hemodynamically appropriate while under my care. Ileana Osborne MD Medical Records Medical records reviewed: Yes I reviewed the patient's medical records. Lab Data Lab results reviewed: Yes I reviewed the patient's lab results. Quality:[facility] Health Related Social Needs: No Data to Display Discharge Plan Disposition Patient Disposition: Transfer-Acute Inpatient Care Specific Acute Inpt Facility: [facility] Condition: Serious Discharge Details Clinical Impression: Vomiting, SBO (small bowel obstruction), Abdominal fluid collection Primary Care Provider: Leonid Hernandez ED Provider: Ileana Osborne Home Meds and New Rx's Prescriptions: No Action Incruse Ellipta 62.5 mcg/actuation blister with device 1 inh IH DAILY nitroglycerin [Nitrostat] 0.4 MG tablet, sublingual 0.4 mg Buccal ONCE PRN Qty: 30 clopidogrel [Plavix] 75 MG tablet 75 mg PO DAILY 90 Days Qty: 90 0RF lisinopril 10 MG tablet 10 mg PO DAILY 90 Days Qty: 90 3RF clotrimazole-betamethasone 1-0.05 % cream 1 applic topical BID cyclobenzaprine 10 mg tablet 10 mg PO BID PRN albuterol sulfate [ProAir HFA] 90 mcg/actuation HFA aerosol inhaler 2 puff inhalation Q6H PRN Repatha SureClick 140 mg/mL pen injector 140 mg SUBCUT .biweekly spironolactone 25 mg tablet 25 mg PO DAILY amiodarone 400 mg tablet 400 mg PO DAILY metoprolol succinate 25 mg tablet extended release 24 hr 25 mg PO DAILY valsartan 40 mg tablet 40 mg PO DAILY
--- NOTE | 2025-02-01 20:53 | W.PCEDHO ---
Registration Status: Primary Language: Preferred Language: ED Information & Data Chief Complaint Abd Prob 02/01/25 05:17 Triage Note Pt d/c'd from [facility] Thursday s/ 02/01/25 04:48 p 'surgery for intestinal blockage' after a surgery for a ruptured appendix. Vomited @1800 yesterday and ~0230 this am. No changes in BMs, appetite has been poor 'but its been like that since this all started I got home' Medical / Surgical History (Last Reviewed 04/08/24 @ 03:33 by Karthik Vargas) Hyperglycemia without ketosis Diverticulosis Ischemic colitis Aneurysm of infrarenal abdominal aorta (05/07/18) Coronary artery disease involving [place] coronary artery of [place] heart without angina pectoris (05/07/18) Ischemic cardiomyopathy (05/07/18) COPD (chronic obstructive pulmonary disease) GERD (gastroesophageal reflux disease) PVD (peripheral vascular disease) Cardiomyopathy Spinal compression fracture TIA (transient ischemic attack) FEROZ (obstructive sleep apnea) Low back pain Depression Statin intolerance (05/07/18) Irritable colon HTN (hypertension) Prediabetes Hyperlipidemia (Last Reviewed 04/08/24 @ 03:33 by Karthik Vargas) Repair of umbilical hernia EGD - IV Sedation (06/27/16) Coronary Stent Colonoscopy - IV Sedation (06/27/16) Colonoscopy - IV Sedation (02/25/13) Most Recent Vital Signs Temperature 35.8 C L 02/01/25 04:48 Temperature Source Temporal Artery Scan 02/01/25 04:48 Pulse 78 02/01/25 15:43 Pulse 76 02/01/25 15:43 Respiratory Rate 18 02/01/25 15:43 Blood Pressure 116/69 02/01/25 15:43 Blood Pressure Mean 76 02/01/25 15:43 Blood Pressure Position Sitting 02/01/25 06:27 Pulse Oximetry 97 02/01/25 15:31 Oxygen Delivery Method Room Air 02/01/25 06:27 Oxygen Flow Rate 0 02/01/25 04:48 Pain Level 3 02/01/25 06:27 Allergies bupropion Allergy (Intermediate, Verified 02/01/25 04:54) HIVES Beta-Blockers (Beta-Adrenergic Bloc Allergy (Unknown, Verified 02/01/25 04:54) PER MD Ujhzcps-PMN-VfU Reductase Inhibitor (Lmmgorr-Wal-Ylu Reductase Inhibitor) Adverse Reaction (Unknown, Verified 02/01/25 04:54) GI UPSET Precautions Isolation Standard precaution 02/01/25 04:52 Active Medications Generic Name Dose Route Start Last Admin Trade Name Ray PRN Reason Stop Dose Admin Sodium Chloride 1,000 mls @ 125 mls/hr 02/01/25 09:30 02/01/25 19:28 Saline 1000ml Bag IV 125 mls/hr INFUSION ANTHONY Administration Iohexol 50 ml 02/01/25 06:00 02/01/25 05:24 Omnipaque 350 Mg/Ml 50 Ml Btl PO 03/03/25 23:59 50 ml DIRECTED ANTHONY Administration Iohexol 100 ml 02/01/25 07:15 02/01/25 07:04 Omnipaque 350 Mg/Ml 100 Ml Btl IJ 03/03/25 23:59 75 ml DIRECTED ANTHONY Administration Sodium Chloride 50 ml 02/01/25 07:15 02/01/25 07:02 Normal Saline - Diluent 50 Ml Vial IV 50 ml .FOR DI USE ANTHONY Administration IV IV Catheter Type [Left Forearm Saline Lock ] IV Catheter Gauge [Left 18 Forearm] Diagnostics 02/01/25 Range/Units 05:03 WBC 13.62 H (4.4-10.8) 10^3/uL RBC 4.51 (4.36-5.78) 10^6/uL Hgb 14.2 (13.5-17.5) g/dL Hct 41.8 (40.0-50.0) % MCV 93 (80-95) fL MCH 31.5 (27.0-33.0) pg MCHC 34.0 (32.0-36.0) % RDW 14.2 H (11.8-14.1) % Plt Count 362 (130-400) 10^3/uL MPV 10.6 (8.0-11.0) fL Immature Gran % 2.9 % Neutrophils % 67.1 % Lymphocytes % 19.5 % Monocytes % 9.5 % Eosinophils % 0.4 % Basophils % 0.6 % Nucleated RBC % 0.0 (0.0-0.3) % Absolute Neutrophils 9.14 H (1.2-6.7) 10^3/uL Absolute Lymphocytes 2.66 (1.2-3.4) 10^3/uL Absolute Monocytes 1.29 H (0.1-0.8) 10^3/uL Absolute Eosinophils 0.05 (0.0-0.7) 10^3/uL Absolute Basophils 0.08 (0.0-0.2) 10^3/uL Sodium 133 L (136-145) mmol/L Potassium 3.5 (3.5-5.1) mmol/L Chloride 98 (98-107) mmol/L Carbon Dioxide 22.1 (21.0-32.0) mmol/L Anion Gap 12.9 H (3-11) mmol/L BUN 13 (7-18) mg/dL Creatinine 1.0 (0.70-1.30) mg/dL Est GFR (CKD-EPI 2020) 80.47 (mL/min/1.73m2) Glucose 159 H (74-106) mg/dL Calcium 9.5 (8.5-10.1) mg/dL Total Bilirubin 0.9 (0.2-1.0) mg/dL AST 25 (15-37) U/L ALT 85 H (16-63) U/L Alkaline Phosphatase 277 H (46-116) U/L Total Protein 7.7 (6.4-8.2) g/dL Albumin 2.9 L (3.4-5.0) g/dL Lipase 36 (<78) U/L Intake and Output - 24 Hour Total 02/01/25 04:43 thru 02/01/25 19:20 Intake Total 1702 Output Total 650 Balance 1052 Weight 65.771 kg Intake: IV 1702 Output: Gastric Drainage 650 Left Nare 650 Other: Gastric Occult Blood Left Nare Negative Falls Risk Assessment History of Falls No History 02/01/25 04:52 Contributing Factors No Factors 02/01/25 04:52 Ambulatory Aids Independent 02/01/25 04:52 Tubes/Lines None 02/01/25 04:52 Gait Evaluation No gait disturbance 02/01/25 04:52 Cognition No cognitive impairment 02/01/25 04:52 Fall Total Score 0 02/01/25 04:52 Level of Risk Standard/Low Risk 02/01/25 04:52 v v v v v v v v v Sending and/or Receiving Nurses: Please use comment section below to note any information pertinent to the patient hand-off not included above. Information / Comments:Report provided to DON Pena on 4D [facility] phone # [phone]. All questions asked, answered. Patient transported by ambulance to [facility]. Report received from:
== END 2025-02-01 20:20 | disposition short-term general hospital (02) ==
PROVIDERS: Student in an Organized Health Care Education/Training Program; Emergency Provider Emergency Medicine; PCP Physician Assistant Medical
DX: R11.10 Vomiting, unspecified (principal); K56.690 Other partial intestinal obstruction; I25.10 Atherosclerotic heart disease of native coronary artery without angina pectoris; I25.2 Old myocardial infarction; I10 Essential (primary) hypertension; E78.5 Hyperlipidemia, unspecified; J44.9 Chronic obstructive pulmonary disease, unspecified; Z86.73 Personal history of transient ischemic attack (TIA), and cerebral infarction without residual deficits; Z95.5 Presence of coronary angioplasty implant and graft; Z79.01 Long term (current) use of anticoagulants; F17.210 Nicotine dependence, cigarettes, uncomplicated
CPT/HCPCS: 00123; 36415; 80053; 83690; 96361; 96365; 96375; 99285; 71045; 74177; 85025; J0131; J2405; J3490; Q9967

== ENCOUNTER 2025-05-01 10:55 | Outpatient (CLI) | payer MEDICARE, OTHER, SELFPAY ==
[2025-05-01 07:48] LABS: Abs Immature Grans 0.05 10^3/uL (0.0-0.06); HCT 48.8 % (40.0-50.0); HGB 16.3 g/dL (13.5-17.5); Immature Grans % 0.6 %; MCH 32.5 pg (27.0-33.0); MCHC 33.4 % (32.0-36.0); MCV 97 fL (80-95); MPV 9.7 fL (8.0-11.0); Platelet Count 300 10^3/uL (130-400); RBC 5.02 10^6/uL (4.36-5.78); RDW 15.6 % (11.8-14.1); RDW-SD 55.4 fL; WBC 8.47 10^3/uL (4.4-10.8)
[2025-05-01 07:57] LABS: Hemoglobin A1C 5.5 % (<5.7)
[2025-05-01 08:43] LABS: Calculated LDL 85 mg/dL (<100); Cholesterol 153 mg/dL (<200); HDL Cholesterol 54 mg/dL (>or=40); Triglyceride 70 mg/dL (<150)
[2025-05-01 08:49] LABS: ALT 30 U/L (16-63); AST 21 U/L (15-37); Albumin 3.7 g/dL (3.4-5.0); Alkaline Phosphatase 105 U/L (46-116); Anion Gap 7.8 mmol/L (3-11); BUN 13 mg/dL (7-18); Bilirubin, Total 0.6 mg/dL (0.2-1.0); CO2 28.2 mmol/L (21.0-32.0); Calcium 9.1 mg/dL (8.5-10.1); Chloride 103 mmol/L (98-107); Estimated GFR 94.62 (mL/min/1.73m2); Glucose 127 mg/dL (74-106); Magnesium 2.1 mg/dL (1.8-2.4); NT-proBNP 176 pg/mL (<300); Potassium 5.0 mmol/L (3.5-5.1); Sodium 139 mmol/L (136-145); Total Protein 7.9 g/dL (6.4-8.2)
== END 2025-05-01 10:56 | disposition home or self-care (01) ==
LOC: LBO 10:56
PROVIDERS: Internal Medicine Cardiovascular Disease; PCP Physician Assistant Medical; Visit Provider Physician Assistant Medical
DX: I25.10 Atherosclerotic heart disease of native coronary artery without angina pectoris (principal); I50.9 Heart failure, unspecified; R73.03 Prediabetes
CPT/HCPCS: 36415; 80053; 80061; 83036; 83735; 83880; 85025

== ENCOUNTER 2025-06-30 12:56 | Emergency (ER) | payer MEDICARE, OTHER, SELFPAY ==
[2025-06-30] VITALS (21 sets, daily range): BP systolic 127–160; BP diastolic 40–65; PULSE 48–57; RESP 16; TEMP 36.7; O2SAT 95–98
--- NOTE | 2025-06-30 13:26 | W.ED.GENAD ---
Discharge Plan Discharge Details Chief Complaint: Abd Prob Primary Care Provider: Leonid Hernandez ED Provider: Kimberlee Jimenez Home Meds and New Rx's Prescriptions: No Action Incruse Ellipta 62.5 mcg/actuation blister with device 1 inh IH DAILY nitroglycerin [Nitrostat] 0.4 MG tablet, sublingual 0.4 mg Buccal ONCE PRN Qty: 30 clopidogrel [Plavix] 75 MG tablet 75 mg PO DAILY 90 Days Qty: 90 0RF clotrimazole-betamethasone 1-0.05 % cream 1 applic topical BID albuterol sulfate [ProAir HFA] 90 mcg/actuation HFA aerosol inhaler 2 puff inhalation Q6H PRN sacubitril-valsartan [Entresto] 24-26 mg tablet 1 tab PO ONCE spironolactone 25 mg tablet 25 mg PO DAILY amiodarone 400 mg tablet 400 mg PO DAILY metoprolol succinate 25 mg tablet extended release 24 hr 25 mg PO DAILY HPI General Date/Time Provider Initiated Documentation: 06/30/25 13:25. Limitations to Documentation: no limitations. Information obtained by: patient and RN notes reviewed. History of Present Illness 70 year old M presents to the emergency department with the chief complaint of RUQ pain, described as moderate, Quality is described as sharp, and is localized to the abdomen. Patient reports no radiation. Patient started experiencing this hour(s) and it has been constant. No relieving factors improve symptom(s), Eating worsens symptoms (came on after eating) . Patient notes loss of appetite; denies chest pain, fever/chills, nausea/vomiting, rash and shortness of breath. Patient did receive the following treatments prior to arrival, none Related Data Home Medications ?Medication ?Instructions ?Recorded ?Confirmed nitroglycerin 0.4 mg sublingual 0.4 mg buccal ONCE PRN #30 tab-caps 11/02/13 06/30/25 tablet (Nitrostat) clopidogrel 75 mg tablet (Plavix) 75 mg PO DAILY 90 days #90 tab-caps 01/07/18 06/30/25 umeclidinium 62.5 mcg/actuation 1 inh inhalation DAILY 04/20/19 06/30/25 blister powder for inhalation (Incruse Ellipta) albuterol sulfate 90 mcg/actuation 2 puff inhalation Q6H PRN 10/22/21 06/30/25 aerosol inhaler (ProAir HFA) clotrimazole-betamethasone 1 1 applic topical BID 10/22/21 06/30/25 %-0.05 % topical cream amiodarone 400 mg tablet 400 mg PO DAILY 01/07/25 06/30/25 metoprolol succinate 25 mg 25 mg PO DAILY 01/07/25 06/30/25 tablet,extended release 24 hr spironolactone 25 mg tablet 25 mg PO DAILY 01/07/25 06/30/25 sacubitril 24 mg-valsartan 26 mg 1 tab PO ONCE 06/30/25 06/30/25 tablet (Entresto) Previous Rx's ?Medication ?Instructions ?Recorded clopidogrel 75 mg tablet (Plavix) 75 mg PO DAILY 90 days #90 tab-caps 01/07/18 Allergies Allergy/AdvReac Type Severity Reaction Status Date / Time bupropion Allergy Intermediate HIVES Verified 06/30/25 13:02 Beta-Blockers Allergy Unknown PER MD Verified 06/30/25 13:02 (Beta-Adrenergic Bloc Uoqhkkn-LUM-YeD Reductase AdvReac Unknown GI UPSET Verified 06/30/25 13:02 Inhibitor (Smkivay-Yuq-Qvm Reductase Inhibitor) General Stated Complaint: Abd Prob NIC: 3 Review of Systems Constitutional Constitutional: Reports as per HPI, Denies fatigue and Denies fever(s) Cardiovascular Cardiovascular: Reports as per HPI, Denies chest pain and Denies dyspnea Respiratory Respiratory: Reports as per HPI, Denies cough and Denies dyspnea Gastrointestinal Gastrointestinal: Reports as per HPI Genitourinary Genitourinary: Denies system reviewed and no additional complaints, except as documented (patient denies any change in urinary habits) Musculoskeletal Musculoskeletal: Reports as per HPI and Denies back pain Integumentary/Breasts Skin/Breast: Reports as per HPI and Denies rash Neurologic Neurologic: Reports as per HPI Endocrine Endocrine: Denies fatigue Exam Const General: cooperative, healthy appearing, comfortable, no acute distress and well developed Nutritional Appearance: average body habitus and well nourished Orientation: alert and awake HENSC Head: normal to inspection Mouth: moist mucous membranes Resp Effort & Inspection: normal respiratory effort, able to speak in complete sentences and no respiratory distress Auscultation: clear to auscultation bilaterally, no rales, no rhonchi and no wheezes Cardio Rate: regular rate Rhythm: regular rhythm Heart Sounds: S1 normal and S2 normal GI Inspection: normal to inspection Palpation: soft, no hepatosplenomegaly, not firm, guarding, no masses, no pulsatile masses, not rigid and tender in the RUQ and Arcos's sign positive; not at McBurney's point and with no rebound tenderness Percussion: normal to percussion Auscultation: normal bowel sounds Back/Spine/Pelvis Back: no CVA tenderness Skin General skin exam: no rashes or lesions noted Trauma: no lacerations or abrasions Neuro General: patient alert and patient awake Cognition: normal cognition Speech: speech normal Course Vital Signs Vital signs: Vital Signs Pulse 51 L 06/30/25 12:59 Respiratory Rate 16 06/30/25 12:59 Blood Pressure 129/65 06/30/25 12:59 Pulse Oximetry 98 06/30/25 12:59 Pulse 51 L 06/30/25 13:04 Respiratory Rate 16 06/30/25 13:04 Blood Pressure 129/65 06/30/25 13:04 Pulse Oximetry 98 06/30/25 13:04 Pain Level 6 06/30/25 13:04 Medical Decision Making Patient is a pleasant 70-year-old gentleman past medical history significant for ischemic colitis, CAD, ischemic cardiomyopathy, COPD, GERD, PVD, TIA, FEROZ, depression, hypertension, hyperlipidemia, prediabetes, presenting today with chief complaint of right upper quadrant pain that began this morning after eating. He denies ever having pain like this historically. Had a typical breakfast and about an hour later sudden onset right upper quadrant pain has been persistent since then. Denies nausea or vomiting. No change in bowel or bladder habits. Denies any fevers or chills. Pain does not radiate into the back. Of note, patient did have complicated appendicitis with rupture in December 2024 requiring long stay in the hospital and multiple surgical interventions. Has been doing well since being released from the hospital at the end of January. On exam, patient appears nontoxic. Resting comfortably no acute distress. Hemodynamically stable. Abdominal exam is significant for right upper quadrant pain and positive Arcos's exam. Exam is otherwise benign with no CVA tenderness or pain elsewhere. Primarily concern at this time for acute cholecystitis. No peritoneal findings. Will obtain baseline labs and give Dilaudid to help with discomfort. Also considered nephrolithiasis based on the sudden onset of his discomfort but should be able to also evaluate for any hydronephrosis on the ultrasound. US reviewed by radiologist: LIVER: Normal size and echogenicity. No focal liver lesions are seen. GALLBLADDER: There is a question of a few small stones in the gallbladder no evidence of wall thickening. No pericholecystic fluid identified. ARCOS'S SIGN: Negative. BILIARY SYSTEM: No intrahepatic or extrahepatic biliary ductal dilation. KIDNEYS: Kidneys are symmetric in size. No evidence of renal calculi. No evidence of hydronephrosis. Small simple cyst of the left kidney. No suspicious renal mass is identified. PANCREAS: Normal where visualized. SPLEEN: Not enlarged. ABDOMINAL AORTA AND IVC: 4.5 centimeter abdominal aortic aneurysm. ASCITES: None seen. IMPRESSION: There is a question of a few small gallstones. No evidence of gallbladder wall thickening, pericholecystic fluid or biliary dilatation. 4.5 centimeter abdominal aortic aneurysm again noted. Labs reviewed. Patient has a white count of 12.3, normal H&H. CMP without significant abnormality. Lipase within normal limits. Urinalysis concerning for trace blood otherwise normal. Reevaluated the patient continues to have significant right upper quadrant discomfort. Will obtain CT as the ultrasound will nondiagnostic for any type of emergent pathology or evidence to suggest acute cholecystitis as initially thought. At the end of my shift, care transitioned to Kayli Jimenez NP with CT and disposition pending. PFSH All Active Problems (Updated 03/04/25 @ 00:00 by MELI BARAKAT) SUSANNE (acute kidney injury) (Acute) SUSANNE (acute kidney injury) (Acute) C. difficile colitis (Acute) Lipoma (Acute) Chest pain (Acute) Ragsdale's esophagus (Acute 02/28/13) - February 2013 REPEAT GASTROSCOPY 2016 Coronary atherosclerosis of [place] coronary vessel (Acute 12/20/12) MA x 2/ stent in 2012: 11/1999: inf. myocardial infarction- tx: lytic therapy - 11/2011: myocardial infarction - tx:drug eluting stent H/O TIA (transient ischemic attack) and stroke (Acute 05/07/18) Peripheral vascular disease (Chronic 05/07/18) Polyp of colon (Acute 12/20/12) tuular adenoma x2: February 2013/ Ventricular tachycardia, nonsustained (Acute 05/07/18) Medical History GERD (gastroesophageal reflux disease) PVD (peripheral vascular disease) Cardiomyopathy Spinal compression fracture TIA (transient ischemic attack) FEROZ (obstructive sleep apnea) Low back pain Depression Statin intolerance (05/07/18) Irritable colon HTN (hypertension) Prediabetes Hyperlipidemia Surgical History Repair of umbilical hernia EGD - IV Sedation (06/27/16) DR. PINEDO; RAGSDALE'S ESOPHAGUS Coronary Stent Colonoscopy - IV Sedation (06/27/16) DR. PINEDO Colonoscopy - IV Sedation (02/25/13) DR. PINEDO Social History Smoking/Tobacco Use Status: Current every day Tobacco Type: cigarettes Smoking risk assessment performed?: Yes Alcohol Intake: former Drug use: Never Substance use type: does not use Housing: house Do you feel safe at home: Yes Do you feel safe in your relationship?: Yes
--- NOTE | 2025-06-30 13:30 | DI.US_ITS ---
Exam(s) US ABDOMEN EXAM: US ABDOMEN CLINICAL HISTORY: RUQ pain TECHNIQUE: Ultrasound abdomen performed using standard protocol. COMPARISON: CT CT ABDOMEN PELVIS W from 02/01/2025 FINDINGS: LIVER: Normal size and echogenicity. No focal liver lesions are seen. GALLBLADDER: There is a question of a few small stones in the gallbladder no evidence of wall thickening. No pericholecystic fluid identified. [place] ROS[place]'S SIGN: Negative. BILIARY SYSTEM: No intrahepatic or extrahepatic biliary ductal dilation. KIDNEYS: Kidneys are symmetric in size. No evidence of renal calculi. No evidence of hydronephrosis. Small simple cyst of the left kidney. No suspicious renal mass is identified. PANCREAS: Normal where visualized. SPLEEN: Not enlarged. ABDOMINAL AORTA AND IVC: 4.5 centimeter abdominal aortic aneurysm. ASCITES: None seen. IMPRESSION: There is a question of a few small gallstones. No evidence of gallbladder wall thickening, pericholecystic fluid or biliary dilatation. 4.5 centimeter abdominal aortic aneurysm again noted. DATA REPOSITORY:
[2025-06-30 13:46] LABS: Abs Immature Grans 0.09 10^3/uL (0.0-0.06); HCT 45.3 % (40.0-50.0); HGB 15.3 g/dL (13.5-17.5); Immature Grans % 0.7 %; MCH 31.7 pg (27.0-33.0); MCHC 33.8 % (32.0-36.0); MCV 94 fL (80-95); MPV 9.9 fL (8.0-11.0); Platelet Count 244 10^3/uL (130-400); RBC 4.82 10^6/uL (4.36-5.78); RDW 14.5 % (11.8-14.1); RDW-SD 50.2 fL; WBC 12.34 10^3/uL (4.4-10.8)
[2025-06-30] MEDS: HYDROmorphone 2 MG/ML SYR 0.5 MG IVP (14:00)
[2025-06-30] MEDS: Lactated Ringers 1,000 ML 1000 ML IV (14:01)
[2025-06-30 14:02] LABS: ALT 40 U/L (16-63); AST 31 U/L (15-37); Albumin 3.5 g/dL (3.4-5.0); Alkaline Phosphatase 101 U/L (46-116); Anion Gap 8.7 mmol/L (3-11); BUN 14 mg/dL (7-18); Bilirubin, Total 0.9 mg/dL (0.2-1.0); CO2 28.3 mmol/L (21.0-32.0); Calcium 8.9 mg/dL (8.5-10.1); Chloride 102 mmol/L (98-107); Estimated GFR 94.03 (mL/min/1.73m2); Glucose 138 mg/dL (74-106); Potassium 3.9 mmol/L (3.5-5.1); Sodium 139 mmol/L (136-145); Total Protein 7.4 g/dL (6.4-8.2)
[2025-06-30 14:09] LABS: Glucose Negative (Negative)
[2025-06-30 14:24] LABS: C & S Indicated? No; WBC Negative HPF (0-5)
[2025-06-30 14:44] LABS: Lipase 40 U/L (<78)
--- NOTE | 2025-06-30 15:00 | DI.CT_ITS ---
Exam(s) CT ABDOMEN PELVIS W EXAM: CT ABDOMEN PELVIS W CLINICAL HISTORY: RUQ pain. TECHNIQUE: Imaging Protocol: Axial computed tomography images with coronal and sagittal reformatted images were created and reviewed CONTRAST MATERIAL: Intravenous: Omnipaque 350 Contrast volume:75 ml Oral: no COMPARISON: CT CT ABDOMEN PELVIS W from 02/01/2025 FINDINGS: ABDOMEN and PELVIS: Lung Bases: No acute findings. The heart is mildly enlarged. Mild dependent changes. Liver: Normal density. No suspicious mass. Gallbladder and biliary tract: No radiodense calculus. No wall thickening or pericholecystic fluid. No biliary dilation. Pancreas: Normal density. No abnormal calcifications or inflammatory process. No evidence of mass. Spleen: Normal. Kidneys: Normal size, contour and axis. No radiodense stones. No obstructive uropathy. No suspicious masses seen. Adrenal glands: Stable small bilateral adrenal adenomas. Vasculature: Stable abdominal aortic aneurysm measuring 4.5 cm. Mural thrombus is present. There is no evidence of dissection. The common iliac arteries are also dilated show mural calcification and mural thrombus. The internal iliac arteries again noted to be occluded the findings appear stable. Soft tissues: Unremarkable. Bladder: No gross wall thickening. No calculi.No focal mass. Bowel: No obstruction. No bowel wall thickening. Appendectomy. Mild diverticulosis. No evidence of diverticulitis. Peritoneal cavity: No ascites. No focal collection. No mesenteric inflammatory response. No free air. Bones: Prior vertebroplasty of L1 with unchanged severe central compression. Severe narrowing of the L5-S1 disc space, stable. Reproductive organs: Vasectomy. The prostate is mildly enlarged. Lymph nodes: No pathologically enlarged lymph nodes. IMPRESSION:: No acute abnormality in the abdomen or pelvis. Stable abdominal aortic aneurysm with significant calcification and mural thrombus. 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 RADIATION DOSE DELIVERED: Total DLP DATA REPOSITORY: All CT scans at this facility are submitted to the National Radiology Data Registry (NRDR) Dose Index Registry (DIR) with the [employer] (A[employer]). RADIATION OPTIMIZATION: All CT scans at this facility use at least one of these dose optimization techniques: automated exposure control; mA and/or kV adjustment per patient size (includes targeted exams where dose is matched to clinical indication); or iterative reconstruction.
--- NOTE | 2025-06-30 15:45 | W.EDPROG ---
Date of service: 06/30/25 Time of Service: 15:46 Medical Decision Making Care assumed from Provider Alyssa PADRON pending CT exam, please see her HPI and PE, patient is a 70 yr old male with a remote hx of Complicated Appendectomy in February of 2025 here with Right sided abd pain which began today. Upon my arrival patient requesting more pain meds, Morphine 2mg IVP ordered PMHX includes AAA, Diverticulosis, CAD, cardiomyopathy, COPD, Gerd, TIA, FEROZ, HTN WBC 12.34 UA shows trace blood 5-10 RBCs. Upon reevaluation discussed CT results, CT shows no acute abnormality, stable 4.5 cm AAA with surrounding calcifications, will give patient Morphine IR bottle # 4 tabs to go. Instructed on use and Strict return instructions. Verbalized understanding. A&O x 4 upon DC. Ambulatory from department in the care of his family. This text was generated using [employer] dictation system, please disregard any oddities of phrase or misspellings. Medical Records Medical records reviewed: Yes I reviewed the patient's medical records. Lab Data Lab results reviewed: Yes I reviewed the patient's lab results. Labs: Laboratory Tests Range/Units 06/30/25 06/30/25 13:23 13:48 WBC (4.4-10.8) 10^3/uL 12.34 H RBC (4.36-5.78) 10^6/uL 4.82 Hgb (13.5-17.5) g/dL 15.3 Hct (40.0-50.0) % 45.3 MCV (80-95) fL 94 MCH (27.0-33.0) pg 31.7 MCHC (32.0-36.0) % 33.8 RDW (11.8-14.1) % 14.5 H Plt Count (130-400) 10^3/uL 244 MPV (8.0-11.0) fL 9.9 Immature Gran % % 0.7 Neutrophils % % 78.0 Lymphocytes % % 13.0 Monocytes % % 7.4 Eosinophils % % 0.5 Basophils % % 0.4 Nucleated RBC % (0.0-0.3) % 0.0 Absolute Neutrophils (1.2-6.7) 10^3/uL 9.63 H Absolute Lymphocytes (1.2-3.4) 10^3/uL 1.60 Absolute Monocytes (0.1-0.8) 10^3/uL 0.91 H Absolute Eosinophils (0.0-0.7) 10^3/uL 0.06 Absolute Basophils (0.0-0.2) 10^3/uL 0.05 Sodium (136-145) mmol/L 139 Potassium (3.5-5.1) mmol/L 3.9 Chloride (98-107) mmol/L 102 Carbon Dioxide (21.0-32.0) mmol/L 28.3 Anion Gap (3-11) mmol/L 8.7 BUN (7-18) mg/dL 14 Creatinine (0.70-1.30) mg/dL 0.8 Est GFR (CKD-EPI 2020) (mL/min/1.73m2) 94.03 Glucose (74-106) mg/dL 138 H Calcium (8.5-10.1) mg/dL 8.9 Total Bilirubin (0.2-1.0) mg/dL 0.9 AST (15-37) U/L 31 ALT (16-63) U/L 40 Alkaline Phosphatase (46-116) U/L 101 Total Protein (6.4-8.2) g/dL 7.4 Albumin (3.4-5.0) g/dL 3.5 Lipase (<78) U/L 40 Urine Color (Yellow) Yellow Urine Clarity (Clear) Clear Urine pH (5-8) 6.0 Ur Specific [place] (1.005-1.025) 1.025 Urine Protein (Neg-Trace) mg/dL Negative Urine Ketones (Negative) mg/dL Negative Urine Blood (Negative) Trace-lysed H Urine Nitrite (Negative) Negative Urine Bilirubin (Negative) Negative Urine Urobilinogen (Up to 0.2) mg/dL 0.2 Ur Leukocyte Esterase (Negative) Negative Urine RBC (0-2) HPF 5-10 H Urine WBC (0-5) HPF Negative Ur Epithelial Cells (Negative) HPF Rare Urine Crystals (Negative) HPF Negative Urine Bacteria (Negative) HPF Rare Urine Casts (Negative) LPF Negative Urine Mucus (Negative) Trace Ur Culture Indicated? No Urine Glucose (Negative) mg/dL Negative Discharge Plan Disposition Patient Disposition: Home Condition: Stable Discharge Details Clinical Impression: Abdominal pain Primary Care Provider: Leonid Hernandez ED Provider: Kimberlee Jimenez Home Meds and New Rx's Prescriptions: Continued Incruse Ellipta 62.5 mcg/actuation blister with device 1 inh IH DAILY nitroglycerin [Nitrostat] 0.4 MG tablet, sublingual 0.4 mg Buccal ONCE PRN Qty: 30 clopidogrel [Plavix] 75 MG tablet 75 mg PO DAILY 90 Days Qty: 90 0RF clotrimazole-betamethasone 1-0.05 % cream 1 applic topical BID albuterol sulfate [ProAir HFA] 90 mcg/actuation HFA aerosol inhaler 2 puff inhalation Q6H PRN sacubitril-valsartan [Entresto] 24-26 mg tablet 1 tab PO ONCE spironolactone 25 mg tablet 25 mg PO DAILY amiodarone 400 mg tablet 400 mg PO DAILY metoprolol succinate 25 mg tablet extended release 24 hr 25 mg PO DAILY Discharge Instructions Instructions: Abdominal Pain, Adult ED Additional Instructions: At this time CT does not show any obstruction, infection free fluid or acute abnormality. You do have a stable 4.5 cm abdominal aortic aneurysm. There is calcification around the aneurysm. Please take the pain medications as directed, do not operate heavy machinery or drive while on this medication. Follow up with primary care provider in 3-5 days. Return to ED sooner if any worsening or concerns. Please take Tylenol or Ibuprofen with food every 4-6 hours as needed for pain and swelling. Referrals: Leonid Hernandez PA [Primary Care Provider, Medicine] - 5 days Referral Note: ER follow up call for Appt, Abdominal pain
[2025-06-30] MEDS: MORPHine 10 MG/ML VIAL 2 MG IVP (15:55)
[2025-06-30] MEDS: Omnipaque 350 MG/ML 100 ML BTL IJ (16:03)
[2025-06-30] MEDS: Normal Saline - Diluent 50 ML VIAL IJ (16:03)
[2025-06-30] MEDS: Normal Saline Flush 10 ML SYR IVP (16:05)
[2025-06-30] MEDS: MORPHine IR 15 MG TAB, 4 TABS/BTL PO (17:07)
== END 2025-06-30 17:16 | disposition home or self-care (01) ==
PROVIDERS: Physician Assistant; Emergency Provider Registered Nurse Emergency; PCP Physician Assistant Medical
DX: R10.11 Right upper quadrant pain (principal); Z86.79 Personal history of other diseases of the circulatory system; Z87.19 Personal history of other diseases of the digestive system
CPT/HCPCS: 00123; 36415; 80053; 83690; 96361; 96374; 96375; 99285; 74177; 76700; 81003; 81015; 85025; 99284; J1171; J2270; J3490